=== PATIENT | male | born 1950 | race Caucasian/White ===

== ENCOUNTER 2024-12-05 19:11 | Emergency (ER) | payer MEDICARE, BC, SELFPAY ==
[2024-12-05 19:16] VITALS: BP 145/80; PULSE 71; RESP 18; TEMP 36.8; O2SAT 99; BMI 25.8
--- NOTE | 2024-12-05 19:24 | CRLHL7_ITS ---
For Patients: As a result of the Century Cures Act, medical imaging exams and procedure reports are released immediately into your electronic medical record. You may view this report before your referring provider. If you have questions, please contact your health care provider. INDICATION: Leg pain and swelling. TECHNIQUE: Ultrasound venous duplex lower left extremity. Compression venous exam was performed using marcos-scale, color Doppler, and spectral Doppler analysis. COMPARISON: None. FINDINGS: Deep veins: Sonographic imaging demonstrates the left common femoral, deep femoral, superficial femoral, popliteal, posterior tibial and the contralateral right common femoral veins to be fully compressible with normal color Doppler blood flow. Superficial veins: Greater saphenous vein is fully compressible. No popliteal cyst. IMPRESSION: Normal left lower extremity venous ultrasound, no sign of deep venous thrombosis. Dictated by Jay Vieira MD @ 12/05/2024 8:51:18 PM (Electronically Signed)
--- NOTE | 2024-12-05 20:10 | ED.GENADULT ---
HPI - General Adult General Chief complaint: Extremity Pain/Injury, Lower Stated complaint: Needs Ultrasound on left leg according to patient Time Seen by Provider: 12/05/24 20:08 History of Present Illness HPI narrative: Pt c/o ache in front left willis for three nights. Pt states this pain only occurs at night and now radiates to back of left calf. Pt denies any swelling, redness, or itchiness to area. Pt states he just started Aranesp injections three weeks ago due to low hemoglobin and primary care doctor has concern for DVT since that is a side effect of this drug. Pt does endorse taking a daily baby aspirin. 74-year-old man presenting to the department with concern of potential DVT. He has been experiencing cramping or aching pain particularly in the anterior lower leg on the left over the last few nights. Kind of radiates around his lower leg. No injury known. Does have a history of restless legs and leg cramps historically. Began Aranesp injections a few weeks ago and due to concern of DVT as a side effect as directed here to confirm that that is not what is going on. Has not really had any swelling. Is not experiencing much pain now. Ultrasound has been requested and has been completed by the time I am interviewing Mr. Catalan. Also received a transfusion today for anemia. No chest pain or shortness of breath Related Data Home Medications ?Medication ?Instructions ?Recorded ?Confirmed aspirin 81 mg capsule 81 mg PO DAILY 12/05/24 12/05/24 darbepoetin eulalia-albumin .ROUTE 12/05/24 tamsulosin 0.4 mg capsule (Flomax) 0.4 mg PO DAILY 12/05/24 12/05/24 Allergies Allergy/AdvReac Type Severity Reaction Status Date / Time Penicillins Allergy Mild Rash Verified 12/05/24 19:23 Review of Systems Status of ROS: Reports: 6 or more systems reviewed and unremarkable except as noted in History and below Exam Narrative: Exam Narrative: Very pleasant. NAD. Breathing easily. Extremities are well perfused without edema. Heart in regular rate and rhythm. Examination of the left lower leg does not show any remarkable swelling. Mild discomfort if anything to palpation over the anterior mid willis musculature on the left. No inflammatory changes or swelling about the knee. Const: Vital Signs, click to edit/add: Vital Signs - 24 hr 12/05/24 19:16 Temperature 98.2 F Pulse Rate [Pulse Oximeter] 71 Respiratory Rate 18 Blood Pressure [Ri ght Upper Arm] 145/80 H Pulse Oximetry 99 Oxygen Delivery Me thod Room Air Documenting provider has reviewed patient's vital signs: yes Course Vital Signs Vital signs: Initial Vital Signs Temperature 98.2 F 12/05/24 19:16 Temperature Source Temporal Artery Scan 12/05/24 19:16 Pulse Rate 71 12/05/24 19:16 Respiratory Rate 18 12/05/24 19:16 Blood Pressure 145/80 H 12/05/24 19:16 Blood Pressure Mean 101 12/05/24 19:16 Blood Pressure Position Sitting 12/05/24 19:16 Pulse Oximetry 99 12/05/24 19:16 Oxygen Delivery Method Room Air 12/05/24 19:16 Vital Signs Temperature 98.2 F 12/05/24 19:16 Pulse Rate 71 12/05/24 19:16 Respiratory Rate 18 12/05/24 19:16 Blood Pressure 145/80 H 12/05/24 19:16 Pulse Oximetry 99 12/05/24 19:16 Oxygen Delivery Method Room Air 12/05/24 19:16 Temperature 98.2 F 12/05/24 19:16 Pulse Rate 71 12/05/24 19:16 Respiratory Rate 18 12/05/24 19:16 Blood Pressure 145/80 H 12/05/24 19:16 Pulse Oximetry 99 12/05/24 19:16 Oxygen Delivery Method Room Air 12/05/24 19:16 Medical Decision Making MDM Narrative Medical decision making narrative: With chronic leg cramps certainly this could be related to the anemia/ferritin. This has been addressed. I suspect this is an extension of what he already experience is may be complicated by history of anemia. We did discuss further evaluation with chemistries and perhaps looking for some perhaps bony lesion but with negative ultrasound preference was to see whether transfusion helps this aching has been experiencing and then following up outpatient. Has no reason really to suspect willis splints otherwise. Ultrasound today was negative for DVT per my conversation with classics teacher. Radiology over-read below INDICATION: Leg pain and swelling. TECHNIQUE: Ultrasound venous duplex lower left extremity. Compression venous exam was performed using marcos-scale, color Doppler, and spectral Doppler analysis. COMPARISON: None. FINDINGS: Deep veins: Sonographic imaging demonstrates the left common femoral, deep femoral, superficial femoral, popliteal, posterior tibial and the contralateral right common femoral veins to be fully compressible with normal color Doppler blood flow. Superficial veins: Greater saphenous vein is fully compressible. No popliteal cyst. IMPRESSION: Normal left lower extremity venous ultrasound, no sign of deep venous thrombosis. Dictated by Jay Vieira MD @ 12/05/2024 8:51:18 PM Provided with Dario wraps See patient discharge plan for further discussion I am with you that it is probably an extension of your usual difficulties with muscle cramps. It might reflect the anemia/low iron you described. I am hopeful that the transfusion you received today will help. Does not appear that there is any clot thankfully. If this continues I would check electrolytes including magnesium. Continue to stay well-hydrated. Wrapping your legs with the provided Dario wraps might be helpful; a bit of a physical distraction or may be frankly helpful with this feeling/cramping. Discharge Plan Discharge Clinical Impression: Pain in left willis Patient Disposition: Home w/ Parent or Adult Condition: Stable Additional Instructions: I am with you that it is probably an extension of your usual difficulties with muscle cramps. It might reflect the anemia/low iron you described. I am hopeful that the transfusion you received today will help. Does not appear that there is any clot thankfully. If this continues I would check electrolytes including magnesium. Continue to stay well-hydrated. Wrapping your legs with the provided Dario wraps might be helpful; a bit of a physical distraction or may be frankly helpful with this feeling/cramping. Prescriptions: No Action darbepoetin eulalia-albumin [Aranesp (in albumin)] .ROUTE tamsulosin [Flomax] 0.4 mg capsule 0.4 mg PO DAILY aspirin 81 mg capsule 81 mg PO DAILY Follow Up/Referrals: Ang Mcgarry MD [Primary Care Provider] - Stand Alone Forms: [place] [facility] Info Instructions
--- OUTSIDE RECORDS SUMMARY | 2024-12-05 20:52 | XMS_ITS | Data Portability ---
Author Organization [place] [facility] Address [address] [place] [address] Care Team Providers Care Machine Operator Name Role Phone ZACHARY SAURAV Primary Care Provider Assessment Encounter Date Assessment Date Assessment LastModified by Organization Details LastModified Time 09/24/2024 09/24/2024 Time spent reviewing the patient s medical record, diagnostic studies, performing a focused history and physical exam, educating the patient regarding the natural history of disease as it pertains to the patient, discussing treatment options and alternatives, medical decision making, and chartin-39 minutes. Not available 09/24/2024 14:13:48 Plan of Treatment Reminders Order Date Submit Date Provider Last Modified By Organization Details Last Modified Time Details Appointments None record ed. Lab None record ed. Referral None record ed. Procedures None record ed. Surgeries None record ed. Imaging None record ed. Medication Orders None record ed. Patient TargetsNo targets recorded. Patient Instructions Encounter Date Encounter Id Patient Instructions Last Modified By Organization Details Last Modified Time 09/24/2024 [id number] PROCEDURE RECOMMENDATIONS 1. Varithena ablation of the residual right small saphenous vein (62164) 2. Ultrasound guided foam sclerotherapy of the residual incompetent tributaries and varicosities greater than 3.0mm of the right leg (76219, 01200) - 1 sessions Not available 09/24/2024 14:14:14 Reason for Referral None Reported. Problems Name Problem SNOMED Code Status Onset Date Resolution Date Notes Provider Name and Address Organization Details Recorded Time Pain co-occurr ent and due to varicose veins of right leg [id number] 250253 Active 2021 Varicose veins of right lower extremiti es with pain; Status Update Date: 11/10/2021 3:13:12 PM Record Status: True Mckenzie ge Code ID: I83.811 T erminal ID: [id number] ICD Code Version: 10 Not Available [facility] 22:42:19 Problem Notes None recorded. Procedures Surgical History Date Name Laterality Status Provider Name and Address Organization Details Recorded Time 09/15/19 PVC - Varithena: Multiple Veins w/ UGFS completed Nallely Corey [facility] 09/15/2024 12:38:04 09/02/19 PVC - EVRFA: Single Vein completed Tavia Ahmadi MD [address], [place], [address], [facility] 09/02/2024 14:05:58 Colonoscopy completed Klaudia Barrera PA-C [address], [place], [address], [facility] 08/05/2024 15:08:40 Vein procedure completed Klaudia Barrera PA-C [address], [place], [address], [facility] 08/05/2024 15:09:31 Vasectomy completed Klaudia Barrera PA-C [address], [place], [address], [facility] 08/05/2024 15:08:40 Appendectomy completed Klaudia Barrera PA-C [address], [place], [address], [facility] 08/05/2024 15:08:40 Imaging Results None recorded. Procedure Notes None recorded. Medical Equipment None Reported. Allergies Allergen ID Allergen Name Allergen Category Reaction Reaction Severity Criticality Documentation Date Start Date Code Code System Note Provider Name and Address Organization Details Recorded Time 2065 Penicilli n Not available rash Not available Not available 08/20/20232021 84946 RxNorm React ion: rash; Comme nt: NoKno wDrug Aller gy: False Markel rgy Name ID: 0 All ergy Remov e Reaso nID: 0 All ergy Remov e By ID: 0 Rec ord Statu s: 1 Ter azalea ID: [id number] Da teCRU D: 2021 8:09: 00 PM Al elizabeth Statu s: 1 Carmen ction Time: 06:00 PM En tered By Dulce Maria nt: False ; Not Available [facility] 22:35:18 Medications Name Sig Start Date Stop Date Status Note LastModified by Organization Details LastModified Time cyclospori ne modified 25 mg capsule TAKE 1 CAPSULE BY MOUTH 2 TIMES A DAY. active Not Available Not Available No t Available tamsulosin 0.4 mg capsule TAKE 1 CAPSULE (0.4 MG) BY MOUTH EVERY DAY WITH FOOD active Not Available Not Available No t Available lisinopril 10 mg tablet active Not Available Not Available Not Available cyclospori ne modified 50 mg capsule TAKE 2 CAPSULES BY MOUTH 2 TIMES A DAY. active Not Available Not Available No t Available aspirin Take 1 Capsules oral active Method: Take Drug Strength: 81 mg capsule D rugClass: Salicylat e Analgesic s, Platelet Aggregati on Inhibitor s - Salicylat es PRN: False Dur ation: 0 Duratio nType: Unknown F illedBy: Karla Sorteberg Transmit : False IsD iscontinu e: False Pat ientDisco ntinued: False IsC urrentMed ications: True IsSi gned: False Max DailyDose : 0 Not Available Not Available Not Available Vitals None Recorded Social History Question Answer Notes LastModified by Organizat ion Details LastModified Time Tobacco Smoking Status Former Smoker Klaudia Barrera PA-C [address] [place], [address], [place] [facility] 08/05/2024 15:08:37 What Is Your Level Of Alcohol Consumption? Occasional Information not available 08/05/2024 How Many Times Per Week Do You Consume Alcohol? Less Than 1 Time Per Week Information not available 08/05/2024 Are You Currently Employed? No Information not available 08/05/2024 What Is Your Occupation? Retired Information not available 08/05/2024 How Many Times Per Week Do You Exercise? 5-7 Times Per Week Information not available 08/05/2024 How Much Tobacco Do You Smoke? 0.25 PPD Information not available 08/05/2024 Sex: Unknown Functional Status Question Answer Note LastModified by Organization D etails LastModified Time What is your exercise level? Moderate Information not available 08/05/2024 Mental Status None recorded. Family History Relationship Description Onset Age of this Age Resolved Age Notes LastModified by Organization Details LastModified Time Paternal Grandmother Varicose veins of lower extremity Not available 2023 15:08:28 Father Ulcer of lower extremity Not available 2023 15:08:28 Notes:Mother: Varicose veins Maternal Grandmother: Varicose veins and Leg ulcers, ItemName: {AR}Family History , Mother: Varicose veins Maternal Grandmother: Varicose veins and Leg ulcers, ItemName: {AR}Family History , Mother: Varicose veins Maternal Grandmother: Varicose veins and Leg ulcers, ItemName: {AR}Family History , Mother: Varicose veins Maternal Grandmother: Varicose veins and Leg ulcers, ItemName: {AR}Family History , Mother: Varicose veins Maternal Grandmother: Varicose veins and Leg ulcers, ItemName: {AR}Family History , Mother: Varicose veins Maternal Grandmother: Varicose veins and Leg ulcers, ItemName: {AR}Family History , Mother: Varicose veins Maternal Grandmother: Varicose veins and Leg ulcers, ItemName: {AR}Family History , Maternal Grandmother: Leg ulcers, ItemName: {AR}Family History Medical History Condition Response Varicose Veins Y Past Encounters Encounter ID Performer Location Encounter Start Date Encounter Closed Date Diagnosis/Indication Diagnosis SNOMED-CT Code Diagnosis ICD10 Code Diagnosis Note [id number] MD Vicenta Meek [address] [place] [address] 08/05/2024 14:50:33 08/13/2024 04:06:04 Pain co-occurrent and due to varicose veins of right leg [id number] I83.811 DUPLEX ULTRASOUND FINDINGS: Spectral doppler analysis shows abnormal reflux (>500msec) in the left distal GSV, right GSV, right SSV remnant, and multiple bilateral tributary veins. Portions of the right GSV and SSV are absent c/w prior treatment. Pulsatile flow in bilateral GSV present. The deep veins are patent with normal compressib ility and augmentati on. Deep reflux seen in the right mid FV. There is no significan t tortuosity or aneurysm of the refluxing saphenous veins which would impede catheter advancemen t. [id number] MD Vicenta Meek [address] [place] [address] 08/05/2024 14:50:35 08/12/2024 10:39:29 Pain co-occurrent and due to varicose veins of right leg [id number] I83.811 DUPLEX ULTRASOUND FINDINGS: Spectral doppler analysis shows abnormal reflux (>500msec) in the left distal GSV, right GSV, right SSV remnant, and multiple bilateral tributary veins. Portions of the right GSV and SSV are absent c/w prior treatment. Pulsatile flow in bilateral GSV present. The deep veins are patent with normal compressib ility and augmentati on. Deep reflux seen in the right mid FV. There is no significan t tortuosity or aneurysm of the refluxing saphenous veins which would impede catheter advancemen t. ASSESSMENT :1)Left lower extremity with mild venous insufficie ncy and mild symptoms2) Right lower extremity superficia l chronic venous insufficie ncy of the GSV and tributary veins with pain and inflammati on affecting activities of daily living. CEAP 3, VCSS 123) Normal deep venous system without DVT4) Pulsatile flow in bilateral GSV5) The patient has progressio n of symptoms despite conservati ve measures including: use of GCS class II or higher for more than 3 months, avoiding long periods of sitting/st anding, regular daily exercise including moderate walking, weight control, OTC analgesics and leg elevation. PLAN:1) Venous insufficie ncy - Proceed with the treatment plan detailed below for the RLE. Continue to monitor LLE and if symptoms worsen re-evaluat e with ultrasound .2) Pulsatile flow - etiology for this could include hypertensi on, CHF. Recommend patient continue close follow up with PCP for heart health. Records sent to PCP. [id number] MD Vicenta Meek e [address] [place] [address] 09/02/2024 13:10:57 09/03/2024 23:12:09 Pain co-occurrent and due to varicose veins of right leg [id number] I83.811 [id number] Tavia Ahmadi MD [facility] [address],[facility] [address] [place] [address] 09/15/2024 12:14:22 09/17/2024 12:22:27 Pain co-occurrent and due to varicose veins of right leg [id number] I83.811 [id number] Tavia Ahmadi MD [facility] [address],[facility] [address] [place], [place] [address] 09/24/2024 12:34:59 09/26/2024 04:12:03 Pain co-occurrent and due to varicose veins of right leg [id number] I83.811 DUPLEX ULTRASOUND FINDINGS: Spectral doppler analysis shows abnormal reflux (>500msec) in the left distal GSV, right SSV remnant, and multiple right tributary veins. Portions of the right GSV and SSV are absent c/w prior treatment. Right GSV also demonstrat es ablation c/w recent treatment. Pulsatile flow in left GSV present. The deep veins are patent with normal compressib ility and augmentati on. Adequate capacity of the deep system. [id number] Tavia Ahmadi MD [facility] [address],[facility] [address] [place] [address] 09/24/2024 12:35:35 09/25/2024 13:26:31 Pain co-occurrent and due to varicose veins of right leg [id number] I83.811 DUPLEX ULTRASOUND FINDINGS: Spectral doppler analysis shows abnormal reflux (>500msec) in the left distal GSV, right SSV remnant, and multiple right tributary veins. Portions of the right GSV and SSV are absent c/w prior treatment. Right GSV also demonstrat es ablation c/w recent treatment. Pulsatile flow in left GSV present. The deep veins are patent with normal compressib ility and augmentati on. Adequate capacity of the deep system. ASSESSMENT :1)Left lower extremity with mild venous insufficie ncy and mild symptoms2) Right lower extremity superficia l chronic venous insufficie ncy of the SSV remnant and tributary veins with pain and inflammati on affecting activities of daily living. CEAP 3, VCSS 123) Normal deep venous system without DVT4) Pulsatile flow in bilateral superficia l system5) The patient has progressio n of symptoms despite conservati ve measures including: use of GCS class II or higher for more than 3 months, avoiding long periods of sitting/st anding, regular daily exercise including moderate walking, weight control, OTC analgesics and leg elevation. PLAN:1) Venous insufficie ncy - Proceed with the treatment plan detailed below for the RLE. Continue to monitor LLE and if symptoms worsen re-evaluat e with ultrasound .2) Pulsatile flow - etiology for this could include hypertensi on, CHF. Recommend patient continue close follow up with PCP for heart health. Records sent to PCP with initial demonstrat ion of this in July 2024. Health Concerns Section Related Observation LastModified by Organization Detai ls LastModified Time None Recorded Concern Status LastModified by Organization Details LastModified Time None Recorded Advance Directives Directive None Recorded Payers Encounter Date Sequence Insurance Name Policy Number Policy Brito Covered Member ID Brito Member ID Guarantor Name 08/05/2024 2 [facility]: [employer] 33 Gurpreet Gregorio Zappa [id number] Gurpreet L Zappa 08/05/2024 1 [place] [employer] Gurpreet L Zappa [id number] Gurpreet L Zappa 09/02/2024 2 [facility] [employer] 33 Gurpreet L Zappa [id number] Gurpreet L Zappa 09/02/2024 1 [place] [employer] Gurpreet L Zappa [id number] Gurpreet L Zappa 09/15/2024 2 [facility] [employer] [id number] Gurpreet L Zappa [id number] Gurpreet L Zappa 09/15/2024 1 [place] [employer] Gurpreet L Zappa [id number] Gurpreet L Zappa 09/24/2024 2 [facility] [employer] [id number] Gurpreet Catalan [id number] Gurpreet Catalan 09/24/2024 1 [place] [facility] Gurpreet Catalan [id number] Gurpreet Catalan 09/24/2024 2 [facility] [employer] 33F Gurpreet Catalan [id number] Gurpreet Catalan 09/24/2024 1 [place] [employer] [facility] Gurpreet Catalan [id number] 7 Gurpreet Catalan Notes Date Note Type Note Provider Name and Address Organization Details Recorded Time 08/05/2024 text/html PVC (Q4U) RecheckReported bypatient.Please select the location of your concernRight Leg: Thigh I have had symptoms:More than 5 year Have you ever experienced any of the following symptoms?Cramping;Res tlessness;Bulging veins When do the symptoms occur?Sitting What activities of daily living do the symptoms affect?Sleep What relieves your symptoms?None Do you wear compression stockings to relieve your symptoms?Yes How long have you worn compression stockings?More than 6 months Have you ever been prescribed medical grade compression stockings?Yes Tavia Ahmadi MD [address], [place], [address], [facility] 08/05/2024 17:17:58 08/05/2024 text/html The patient is a 73 yo male who presents with complaints of right lower extremity varicose veins and increasing symptoms for the past year. Patient has had prior right leg vein treatment with RFA and sclerotherapy in 2021, he notes that symptoms were resolved for a while but now have returned, especially the cramping in the right medial thigh. He also notes one instance of cramping in the left medial thigh. Symptoms include: pain, aching, cramping, tired legs, heavy legs, fatigue, itching, burning, recurring swelling, spider veins, surface veins, and skin discoloration. There is no history of DVT, SVT, ulceration, cellulitis or phleborrhagia. Symptom location: Right leg/thigh mostly, one episode of left leg cramping. Symptom severity: 6/10; moderately severe Symptoms occur with: prolonged sitting and standing, sleeping, during activity/exercise, after activity/exercise, and are worse later in the day. ADLs affected by symptoms:-Sleep: interfere with patient s ability to fall asleep and cause patient to awaken from sleep frequently.-Exercise/ activity: limit ability to exercise, including walking.-Work: Needs to take frequent breaks to walk and/or elevate legs.-Chores: Avoids chores or needs to take breaks to walk and/or elevate legs.-Leisure activities: Avoids activities or needs to take breaks to walk and/or elevate. Conservative measures implemented without relief of symptoms:-avoidance of prolonged periods of sitting or standing,-regular exercise including moderate daily walking,-leg elevation,-weight control,-GCS 20-30 mmHg >3 months, Rx given in 2021, records on file,-OTC analgesics. Of note, patient has a history of hypertension and is following with PCP, he states that BP in clinic is usually high but at home less elevated. He denies any history of heart failure. Denies new swelling in the legs. Tavia Ahmadi MD [address] [place], [address], [facility] 08/05/2024 17:19:08 09/24/2024 text/html PVC (Q4U) RecheckReported bypatient.Please select the location of your concernLeft Leg: Thigh I have had symptoms:Less than 3 months Have you ever experienced any of the following symptoms?Cramping;Tir ed legs/Fatigue When do the symptoms occur?Sitting What activities of daily living do the symptoms affect?Sleep What relieves your symptoms?Avoidance of long periods of sitting/standing; Regular Excercise Do you wear compression stockings to relieve your symptoms?Yes How long have you worn compression stockings?More than 3 months Have you ever been prescribed medical grade compression stockings?Yes Tavia Ahmadi MD [address] [place], [address], [facility] 09/24/2024 15:58:02 09/24/2024 text/html The patient is a 73 yo male who presents with complaints of right lower extremity varicose veins and increasing symptoms for the past year. Patient has had prior right leg vein treatment with RFA and sclerotherapy in 2021 and just recently had more vein treatment on the right lower extremity with RFA and sclerotherapy. Patient continues to note that he only had one episode of cramping in the left leg otherwise is asymptomatic. Patient notes symptoms, especially cramping, has improved since recent vein treatment, but continues to note the following. Symptoms include: pain, aching, cramping, tired legs, heavy legs, fatigue, itching, burning, recurring swelling, spider veins, surface veins, and skin discoloration. There is no history of DVT, SVT, ulceration, cellulitis or phleborrhagia. Symptom location: Right leg/thigh mostly, one episode of left leg cramping. Symptom severity: 02/03; moderately severe Symptoms occur with: prolonged sitting and standing, sleeping, during activity/exercise, after activity/exercise, and are worse later in the day. ADLs affected by symptoms:-Sleep: interfere with patient s ability to fall asleep and cause patient to awaken from sleep frequently.-Exercise/ activity: limit ability to exercise, including walking.-Work: Needs to take frequent breaks to walk and/or elevate legs.-Chores: Avoids chores or needs to take breaks to walk and/or elevate legs.-Leisure activities: Avoids activities or needs to take breaks to walk and/or elevate. Conservative measures implemented without relief of symptoms:-avoidance of prolonged periods of sitting or standing,-regular exercise including moderate daily walking,-leg elevation,-weight control,-GCS 20-30 mmHg >3 months, Rx given in 2021, records on file,-OTC analgesics. Of note, patient has a history of hypertension and is following with PCP, he states that BP in clinic is usually high but at home less elevated. He denies any history of heart failure. Denies new swelling in the legs. Tavia Ahmadi MD [address], [place], [address], [place] [facility] 09/24/2024 15:59:00
--- OUTSIDE RECORDS SUMMARY | 2024-12-05 20:52 | XMS_ITS | Clinical Summary ---
Author Organization [facility] Address [address] [place] [address] Care Team Providers Care Loss Prevention Lead Name Role Phone Elsewhere, Pcp Primary Care Provider Unavailabl e Source Comments Patient records contain information from all sites at [facility]. For routine questions regarding patient records, call [phone] during business hours, M-F 8:00 AM - 5:00 PM Central Time. Record requests for emergency care only can be directed to [phone] at any time.[facility] Allergies Active Allergy Reactions Criticality Noted Date Comments Penicillins Diarrhea,Hives (Reselect Reaction) 01/22/2014 hives Medications * This document contains information received from the source organization and may not represent a complete record from that organization. aspirin [address] tablet Take 81 mg by mouth daily. Active cycloSPORINE modified (Gengraf,NeoraL ) 50 mg capsule TAKE 2 CAPSULES BY MOUTH 2 TIMES A DAY. 360 capsule 3 08/18/2024 Active cycloSPORINE modified (Gengraf,NeoraL ) 25 mg capsule TAKE 1 CAPSULE BY MOUTH 2 TIMES A DAY. 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 Myelofibrosis (HCC) (Primary Dx) 12/05/2024 Clinical Communication Division of Hematology in [address] [phone] Slava Lees M.D. Nurse Assessment 12/05/2024 Orders Only Division of Hematology in [place], [place] [address] [place] [phone] Slava Lees M.D. 12/04/2024 11:15 AM CDT - 12/04/2024 11:59 PM CDT Hospital Encounter Department of Laboratory Medicine in [address] [phone] Slava Lees M.D. 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); Aplasia Red Cell (HCC) Discharge Disposition: Home or Self Care 12/04/2024 Clinical Communication Department of Infusion Therapy in [address] [phone] Nan Scott, R.N. Appt Request 12/04/2024 Clinical Communication Department of Infusion Therapy in [address] [phone] Nan Scott RMillaN. 12/04/2024 Clinical Communication Division of Hematology in [place], [place] [address] [place] [phone] Slava Lees M.D. 12/01/2024 Clinical Communication Division of Hematology in [place], [place] [address] [place] [phone] Slava Lees M.D. 11/27/2024 12:30 PM CDT Infusion Department of Infusion Therapy in [address] [phone] Slava Lees M.D. Aplasia Red Cell (HCC) (Primary Dx) 11/27/2024 11:30 AM CDT - 11/27/2024 11:59 PM CDT Hospital Encounter Department of Laboratory Medicine in [address] [phone] Slava Lees M.D. 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); Aplasia Red Cell (HCC) Discharge Disposition: Home or Self Care 11/24/2024 Orders Only Division of Hematology in [address] [phone] Slava Lees M.D. 11/20/2024 11:06 AM CDT - 11/20/2024 11:59 PM CDT Hospital Encounter Department of Laboratory Medicine in [address] [phone] Slava Lees M.D. 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); Aplasia Red Cell (HCC) Discharge Disposition: Home or Self Care 11/13/2024 5:15 PM CDT Infusion Department of Infusion Therapy in [place], [place] [address] [place] [phone] Slava Lees M.D. Aplasia Red Cell (HCC) (Primary Dx) Discharge Disposition: Home or Self Care 11/13/2024 1:00 PM CDT Office Visit Division of Hematology in [place], [place] [address] [place] [phone] Slava Lees M.D. Aplasia Red Cell (HCC) (Primary Dx) 11/13/2024 11:05 AM CDT - 11/13/2024 11:59 PM CDT Hospital Encounter Department of Laboratory Medicine in [address] [phone] Slava Lees M.D. 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); Aplasia Red Cell (HCC) Discharge Disposition: Home or Self Care 11/06/2024 6:45 PM CDT Infusion Department of Infusion Therapy in [address] [phone] Slava Lees M.D. Myelofibrosis (HCC) (Primary Dx); Aplasia Red Cell (HCC); Anemia Of Chronic Renal Failure Discharge Disposition: Home or Self Care 11/06/2024 4:30 PM CDT - 11/06/2024 11:59 PM CDT Hospital Encounter Department of Laboratory Medicine and Pathology, [facility] in [address] [phone] Slava Lees M.D. Myelofibrosis (HCC) Discharge Disposition: Home or Self Care 11/06/2024 11:33 AM CDT - 11/06/2024 4:29 PM CDT Hospital Encounter Department of Laboratory Medicine in [address] [phone] Slava Lees M.D. 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); Aplasia Red Cell (HCC) Discharge Disposition: Home or Self Care 11/06/2024 Results Follow-Up Division of Hematology in [address] [phone] Lexie Sampson R.N. CBC with Differential, Blood, Morphology Evaluation 11/06/2024 Orders Only Division of Hematology in [address] [phone] Slava Lees M.D. Myelofibrosis (HCC) (Primary Dx) 11/03/2024 Clinical Communication Division of Hematology in [address] [phone] Frank Bowen M.B.B.S. 10/31/2024 3:08 PM THERAPIST OCCUPATIONAL - 10/31/2024 11:59 PM THERAPIST OCCUPATIONAL Hospital Encounter Department of Laboratory Medicine and Pathology, [place], [place] [address] [place] [phone] Frank Bowen M.B.B.S. 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); Aplasia Red Cell (HCC); Anemia Of Chronic Renal Failure; Monoclonal B Cell Lymphocytosis Discharge Disposition: Home or Self Care 10/31/2024 2:00 PM THERAPIST OCCUPATIONAL Comprehensive Visit Division of Hematology in [place], [place] [address] [place] [phone] Frank Bowen M.B.B.S. 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) (Primary Dx); Aplasia Red Cell (HCC); Anemia Of Chronic Renal Failure; Monoclonal B Cell Lymphocytosis 10/31/2024 8:26 AM THERAPIST OCCUPATIONAL - 10/31/2024 3:07 PM THERAPIST OCCUPATIONAL Hospital Encounter Department of Radiology, [place], [place] [address] [place] [phone] Slava Lees M.D. 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); Aplasia Red Cell (HCC) Discharge Disposition: Home or Self Care 10/31/2024 8:00 AM THERAPIST OCCUPATIONAL - 10/31/2024 8:25 AM THERAPIST OCCUPATIONAL Hospital Encounter Department of Laboratory Medicine and Pathology, [place], [place] [address] [place] [phone] Slava Lees M.D. 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); Aplasia Red Cell (HCC) Discharge Disposition: Home or Self Care 10/23/2024 11:25 AM THERAPIST OCCUPATIONAL - 10/23/2024 11:59 PM THERAPIST OCCUPATIONAL Hospital Encounter Department of Laboratory Medicine in [address] [phone] Slava Lees M.D. 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); Aplasia Red Cell (HCC) Discharge Disposition: Home or Self Care 10/17/2024 Clinical Communication Division of Hematology in [place], [place] [address] [place] [phone] Slava Lees M.D. Upcoming lab appts 10/16/2024 1:00 PM THERAPIST OCCUPATIONAL Office Visit Division of Hematology in [address] [phone] Slava Lees M.D. 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) (Primary Dx); Aplasia Red Cell (HCC) 10/16/2024 9:00 AM THERAPIST OCCUPATIONAL - 10/16/2024 11:59 PM THERAPIST OCCUPATIONAL Hospital Encounter Department of Laboratory Medicine and Pathology, [facility] in [address] [phone] Slava Lees M.D. 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) Discharge Disposition: Home or Self Care 10/03/2024 7:00 AM THERAPIST OCCUPATIONAL Infusion Department of Infusion Therapy in [address] [phone] Lilia Mccormick M.D. Myelofibrosis (HCC) (Primary Dx) 10/02/2024 11:29 AM THERAPIST OCCUPATIONAL - 10/02/2024 11:59 PM THERAPIST OCCUPATIONAL Hospital Encounter Department of Laboratory Medicine in [address] [phone] Lilia Mccormick M.D. Myelofibrosis (HCC) Discharge Disposition: Home or Self Care 10/02/2024 Clinical Communication Division of Hematology in [address] [phone] Slava Lees M.D. 10/01/2024 Clinical Communication Division of Hematology in [address] [phone] Slava Lees M.D. Follow-up Orders (Blood transfusion) 09/30/2024 11:27 AM THERAPIST OCCUPATIONAL - 09/30/2024 11:59 PM THERAPIST OCCUPATIONAL Hospital Encounter Department of Laboratory Medicine in [address] [phone] Slava Lees M.D. 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) Discharge Disposition: Home or Self Care 09/30/2024 Clinical Communication Division of Hematology in [place], [place] [address] [place] [phone] Slava Lees M.D. Nurse Assessment 09/16/2024 12:30 PM THERAPIST OCCUPATIONAL Procedure visit Department of Infusion Therapy in [place], [place] [address] [place] [phone] Slava Lees M.D. Haack, Joseph J, R.N. 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) 09/16/2024 10:10 AM THERAPIST OCCUPATIONAL - 09/16/2024 11:59 PM THERAPIST OCCUPATIONAL Hospital Encounter Department of Laboratory Medicine and Pathology, [facility] in [place], [place] [address] [place] [phone] Slava Lees M.D. 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) Discharge Disposition: Home or Self Care 09/16/2024 Orders Only Division of Hematology in [place], [place] [address] [place] [phone] Slava Lees M.D. 09/12/2024 Clinical Communication Division of Hematology in [place], [place] [address] [place] [phone] Slava Lees M.D. Order Request from Last 3 Months Immunizations Immunization Administration Dates Next Due RZV (SHINGRIX) 09/26/2023,06/14/2023 SARS-COV-2 (COVID-19) - MODERNA(Discontinued) Tdap 01/02/2019 Family History Medical History Relation Name Comments Other cancer Father Gurpreet Catalan stomach Coronary artery disease Mother Mecca valv e Arthritis Paternal Grandmother Curiel old age Diabetes Paternal Grandmother Curiel old age Relation Name Status Comments Father Gurpreet Catalan Mother Mecca Paternal Grandmother Veena Social History Tobacco Use Types Packs/Day Years Used Date Smoking Tobacco: Former Cigarettes 1 4.4 0 11/25/1969 - 04/02/1974 Passive Smoke Exposure: Past Smokeless Tobacco: Never Tobacco Cessation:Counseling Given: Not Answered Comments: service time only Passive Exposure Comments:Dad When I was growing up & in the Service Alcohol Use Standard Drinks/Week Comments Yes 5 (1 standard drink = 0.6 oz pur e alcohol) [facility] Utilities Answer Date Recorded In the past 12 months has e electric, gas, oil, or water company threatened to shut off services in your home? No 04/10/2024 Humiliation, Afraid, Rape, and Kick questionnair e Answer Date Recorded Within the last year, have y ou been afraid of your partner or ex-partner? No 03/26/2023 Within the last year, have y ou been humiliated or emotionally abused in other ways by your partner or ex-partner? No Within the last year, have y ou been kicked, hit, slapped, or otherwise physically hurt by your partner or ex-partner? No 03/26/2023 Within the last year, have y ou been raped or forced to have any kind of sexual activity by your partner or ex-partner? No 03/26/2023 Overall Financial Resource Strain (CARDIA) Answe r Date Recorded How hard is it for you to pa y for the very basics like food, housing, medical care, and heating? Not hard at all 03/26/2023 Exercise Vital Sign Answer Date Recorde d On average, how many days pe r week do you engage in moderate to strenuous exercise (like a brisk walk)? 7 days 04/10/2024 On average, how many minutes do you engage in exercise at this level? 40 min 04/10/2024 Hunger Vital Sign Answer Date Recorded Within the past 12 months, y ou worried that your food would run out before you got the money to buy more. Never true 04/10/20 24 Within the past 12 months, t he food you bought just didn't last and you didn't have money to get more. Never true 04/10/2024 PRAPARE - Transportation Answer Date Re corded In the past 12 months, has l ack of transportation kept you from medical appointments or from getting medications? No 03/27 In the past 12 months, has l ack of transportation kept you from meetings, work, or from getting things needed for daily living? No 04/10/2024 Nutrition Answer Date Recorded On average, how many serving s of fruits and vegetables do you eat per day (serving size is equal to 1 cup or approximately the size of a tennis ball)? 3-5 04/10/2024 Dental Answer Date Recorded Dental: Regular Dentist Yes 03/26/20 Employment Answer Date Recorded Employment status Retired 04/10/2024 Housing Stability Answer Date Recorded What is your living situation today? I have a [facility] place to live 04/10/2024 Sex and Gender Information Value Date Recorded Sex Assigned at Male 03/26/2023 7:11 AM CDT Legal Sex Male 7:47 PM THERAPIST OCCUPATIONAL Gender Identity Male 08/12/2018 1:39 PM THERAPIST OCCUPATIONAL Sexual Orientation Straight 08/12/2018 1: 39 PM THERAPIST OCCUPATIONAL Last Filed Vital Signs Vital Sign Reading Time Taken Comments Blood Pressure 131/82 12/05/2024 6:00 PM CDT Pulse 85 12/05/2024 6:00 PM CDT Temperature 36.8 C (98.2 F) 12/05/2024 6:04 PM CDT Respiratory Rate 16 12/05/2024 1:30 PM CDT Oxygen Saturation 94% 12/05/2024 6:00 PM CDT Inhaled Oxygen Concentration - - Weight 70 kg (154 lb 5.2 oz) 12/05/2024 6:23 PM CDT Height 166.5 cm (5' 5.55) 11/13/2024 12:44 PM C DT Body Mass Index 25.25 11/13/2024 12:44 PM CDT Plan of Treatment Upcoming Encounters Date Type Department Care Team (Late st Contact Info) Description 12/11/2024 1:20 PM CDT Appointment Department of Laboratory Medicine in [address] [phone] Slava Lees M.D. [address] [place] [phone] 12/11/2024 2:30 PM CDT Infusion Department of Infusion Therapy in [address] [phone] Slava Lees M.D. [address] [place] [phone] 12/18/2024 12:00 PM CDT Appointment Department of Laboratory Medicine in [address] [phone] Slava Lees M.D. [address] [place] [phone] 12/25/2024 11:00 AM CDT Appointment Department of Laboratory Medicine in [address] [phone] Slava Lees M.D. [address] [place] [phone] 12/25/2024 12:00 PM CDT Infusion Department of Infusion Therapy in [address] [phone] Slava Lees M.D. [address] [place] [phone] 01/01/2025 11:10 AM CDT Appointment Department of Laboratory Medicine in [address] [phone] Slava Lees M.D. [address] [place] [phone] 01/08/2025 1:30 PM CDT Appointment Department of Laboratory Medicine in [address] [phone] Slava Lees M.D. [address] [place] [phone] 01/08/2025 2:30 PM CDT Infusion Department of Infusion Therapy in [address] [phone] Slava Lees M.D. [address] [place] [phone] 01/15/2025 11:10 AM CDT Appointment Department of Laboratory Medicine in [address] [phone] Slava Lees M.D. [address] [place] [phone] 01/22/2025 11:00 AM CDT Appointment Department of Laboratory Medicine in [address] [phone] Slava Lees M.D. [address] [place] [phone] 01/22/2025 12:30 PM CDT Infusion Department of Infusion Therapy in [address] [phone] Slava Lees M.D. [address] [place] [phone] 01/29/2025 11:10 AM CDT Appointment Department of Laboratory Medicine in [address] [phone] Slava Lees M.D. [address] [place] [phone] 02/05/2025 1:30 PM CDT Appointment Department of Laboratory Medicine in [address] [phone] Slava Lees M.D. [address] [place] [phone] 02/05/2025 2:30 PM CDT Infusion Department of Infusion Therapy in [address] [phone] Slava Lees M.D. [address] [place] [phone] 02/12/2025 11:10 AM CDT Appointment Department of Laboratory Medicine in [address] [phone] Slava Lees M.D. [address] [place] [phone] 02/26/2025 11:10 AM CDT Appointment Department of Laboratory Medicine in [address] [phone] Slava Lees M.D. [address] [place] [phone] Health Maintenance Due Date Last Done Comments Abdominal Aortic Aneurysm (AAA) Screen 1950 CT Colonography 1950 FIT 1950 Pneumococcal vaccine (50+ years) (1 of 2 - PCV) 1969 RSV vaccine - (32-36 weeks) or 60+ years (1 - Risk 60-74 years 1-dose series) 2010 Colonoscopy 10/04/2020 10/04/2010 (Perf ormed elsewhere) COVID-19 Vaccine ( - 2023- season) 2024 04/20/2021, 01/02/2021, 12/05/2020 Influenza Vaccine (#1) 2024 Depression Screening (Annual PHQ-2) 08/27/2024 Potassium Level 10/16/2025 10/16/2024, 08/2 , 10/12/2023, Additional history exists Sodium Level 10/16/2025 10/16/2024, 08/2 , 10/12/2023, Additional history exists Creatinine Level (Kidney Function Test) 10/31/2025 10/31/2024, 10/16/2024, 04/15/2024, Additional history exists Cologuard 07/31/2027 07/31/2024 Colorectal Cancer Screening 07/31/2027 Fasting Glucose for Diabetes Screening 10/16/2027 10/16/2024, 04/15/2024, 10/12/2023, Additional history exists DTaP,Tdap,and Td Vaccines (2 - Td or Tdap) 01/02/2029 01/02/2019 Zoster Vaccines Completed 09/26/2023, 06/14/2023 Fall Risk Screen (Annual) Completed 11/13/2024 HPV Vaccines Aged Out No longer eligi ble based on patient's age to complete this topic IPV Vaccines Aged Out No longer eligi ble based on patient's age to complete this topic Procedures Procedure Name Priority Date/Time Associated Diagnosis Comments TRANSFUSE RED BLOOD CELLS Routine 12/05/2024 11:01 AM CDT Myelofibrosis (HCC) PREPARE RED BLOOD CELLS Routine 12/04/2024 1:57 PM CDT Myelofibrosis (HCC) TESTING LOCATION Routine 12/04/2024 1:57 PM CDT TYPE AND SCREEN Routine 12/04/2024 1:57 PM CDT 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) Aplasia Red Cell (HCC) CBC WITH DIFFERENTIAL, B Routine 12/04/2024 11:22 AM CDT 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) Aplasia Red Cell (HCC) IRON AND TOT IRON-BINDING CAPACITY, S/P Routine 11/27/2024 11:38 AM CDT Aplasia Red Cell (HCC) FERRITIN, S Routine 11/27/2024 11:38 AM CDT Aplasia Red Cell (HCC) CBC WITH DIFFERENTIAL, B Routine 11/27/2024 11:38 AM CDT 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) Aplasia Red Cell (HCC) IRON AND TOT IRON-BINDING CAPACITY, S/P Routine 11/20/2024 11:18 AM CDT Aplasia Red Cell (HCC) FERRITIN, S Routine 11/20/2024 11:18 AM CDT Aplasia Red Cell (HCC) CBC WITH DIFFERENTIAL, B Routine 11/20/2024 11:18 AM CDT 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) Aplasia Red Cell (HCC) CBC WITH DIFFERENTIAL, B Routine 11/13/2024 11:12 AM CDT 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) Aplasia Red Cell (HCC) TRANSFUSE RED BLOOD CELLS Routine 11/06/2024 6:51 PM CDT Myelofibrosis (HCC) PREPARE RED BLOOD CELLS Routine 11/06/2024 4:53 PM CDT Myelofibrosis (HCC) TYPE AND SCREEN Routine 11/06/2024 4:53 PM CDT Myelofibrosis (HCC) MORPHOLOGY EVALUATION Routine 11/06/2024 11:39 AM CDT CBC WITH DIFFERENTIAL, B Routine 11/06/2024 11:39 AM CDT 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) Aplasia Red Cell (HCC) DIRECT ANTIGLOBULIN TEST (POLYSPECIFIC) Routine 10/31/2024 3:17 PM THERAPIST OCCUPATIONAL VITAMIN B12 ASSAY, S Routine 10/31/2024 3:17 PM THERAPIST OCCUPATIONAL 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) Aplasia Red Cell (HCC) 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 SOLUBLE TRANSFERRIN RECEPTOR (STFR), S Routine 10/31/2024 3:17 PM THERAPIST OCCUPATIONAL 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) Aplasia Red Cell (HCC) 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 LACTATE DEHYDROGENASE (LD), S Routine 10/31/2024 3:17 PM THERAPIST OCCUPATIONAL 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) Aplasia Red Cell (HCC) 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 IRON AND TOT IRON-BINDING CAPACITY, S/P Routine 10/31/2024 3:17 PM THERAPIST OCCUPATIONAL 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) Aplasia Red Cell (HCC) 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 FOLATE, S Routine 10/31/2024 3:17 PM THERAPIST OCCUPATIONAL 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) Aplasia Red Cell (HCC) 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 FERRITIN, S Routine 10/31/2024 3:17 PM THERAPIST OCCUPATIONAL 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) Aplasia Red Cell (HCC) 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 BILIRUBIN, TOT, S/P Routine 10/31/2024 3:17 PM THERAPIST OCCUPATIONAL 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) Aplasia Red Cell (HCC) 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 BILIRUBIN DIRECT, S/P Routine 10/31/2024 3:17 PM THERAPIST OCCUPATIONAL 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) Aplasia Red Cell (HCC) 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 SPSMA RESULT Routine 10/31/2024 3:16 PM THERAPIST OCCUPATIONAL 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) Aplasia Red Cell (HCC) 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 ERYTHROPOIETIN (EPO), S Routine 10/31/2024 3:16 PM THERAPIST OCCUPATIONAL 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) Aplasia Red Cell (HCC) 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 TESTOSTERONE, TOT, BIOAVAILABLE, AND FREE, S Routine 10/31/2024 3:16 PM THERAPIST OCCUPATIONAL 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) Aplasia Red Cell (HCC) 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 HAPTOGLOBIN, S Routine 10/31/2024 3:16 PM THERAPIST OCCUPATIONAL 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) Aplasia Red Cell (HCC) 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 COPPER, S Routine 10/31/2024 3:16 PM THERAPIST OCCUPATIONAL 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) Aplasia Red Cell (HCC) 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 PET CT SKULL TO THIGH RAD - Routine (most inpatients and all outpatients) 10/31/2024 10:14 AM THERAPIST OCCUPATIONAL 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) Aplasia Red Cell (HCC) IMMUNOGLOBULINS (IGG, IGA, AND IGM), S Routine 10/31/2024 8:13 AM THERAPIST OCCUPATIONAL 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) Aplasia Red Cell (HCC) CLL, DIAGNOSTIC FISH Routine 10/31/2024 8:13 AM THERAPIST OCCUPATIONAL 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) Aplasia Red Cell (HCC) RETICULOCYTES, B Routine 10/31/2024 8:13 AM THERAPIST OCCUPATIONAL 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) Aplasia Red Cell (HCC) LEUKEMIA/LYMPHOMA PHENOTYPE, B Routine 10/31/2024 8:13 AM THERAPIST OCCUPATIONAL 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) Aplasia Red Cell (HCC) IGH SOMATIC HYPERMUTATION IN B-CLL Routine 10/31/2024 8:13 AM THERAPIST OCCUPATIONAL 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) Aplasia Red Cell (HCC) CBC WITH DIFFERENTIAL, B Routine 10/31/2024 8:13 AM THERAPIST OCCUPATIONAL 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) Aplasia Red Cell (HCC) LACTATE DEHYDROGENASE (LD), S Routine 10/31/2024 8:12 AM THERAPIST OCCUPATIONAL 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) Aplasia Red Cell (HCC) CREATININE WITH EGFR, S/P Routine 10/31/2024 8:12 AM THERAPIST OCCUPATIONAL 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) Aplasia Red Cell (HCC) CALCIUM, TOT, S/P Routine 10/31/2024 8:12 AM THERAPIST OCCUPATIONAL 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) Aplasia Red Cell (HCC) BILIRUBIN, TOT, S/P Routine 10/31/2024 8:12 AM THERAPIST OCCUPATIONAL 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) Aplasia Red Cell (HCC) [id number] (BETA-2-M), S Routine 10/31/2024 8:12 AM THERAPIST OCCUPATIONAL 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) Aplasia Red Cell (HCC) ASPARTATE AMINOTRANSFERASE (AST), S/P Routine 10/31/2024 8:12 AM THERAPIST OCCUPATIONAL 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) Aplasia Red Cell (HCC) ALKALINE PHOSPHATASE, S/P Routine 10/31/2024 8:12 AM THERAPIST OCCUPATIONAL 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) Aplasia Red Cell (HCC) TP53 PRE-ANALYSIS CELL SORTING, V Routine 10/31/2024 8:09 AM THERAPIST OCCUPATIONAL CBC WITH DIFFERENTIAL, B Routine 10/23/2024 11:30 AM THERAPIST OCCUPATIONAL 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) Aplasia Red Cell (HCC) MAGNESIUM, S Routine 10/16/2024 10:01 AM THERAPIST OCCUPATIONAL 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) COMPREHENSIVE METABOLIC PANEL, S/P Routine 10/16/2024 10:01 AM THERAPIST OCCUPATIONAL 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) CBC WITH DIFFERENTIAL, B Routine 10/16/2024 10:01 AM THERAPIST OCCUPATIONAL 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) TRANSFUSE RED BLOOD CELLS Routine 10/03/2024 7:28 AM THERAPIST OCCUPATIONAL Myelofibrosis (HCC) PREPARE RED BLOOD CELLS Routine 10/02/2024 11:43 AM THERAPIST OCCUPATIONAL Myelofibrosis (HCC) TESTING LOCATION Routine 10/02/2024 11:43 AM THERAPIST OCCUPATIONAL TYPE AND SCREEN Routine 10/02/2024 11:43 AM THERAPIST OCCUPATIONAL Myelofibrosis (HCC) CBC WITH DIFFERENTIAL, B Routine 09/30/2024 11:34 AM THERAPIST OCCUPATIONAL 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) CHROMOSOMES, HEMATOLOGIC, BM Routine 09/16/2024 4:32 PM THERAPIST OCCUPATIONAL MYELOID NEOPLASMS, NGS Routine 4:32 PM THERAPIST OCCUPATIONAL LEUKEMIA/LYMPHOMA, PHENOTYPE, V Routine 09/16/2024 12:30 PM THERAPIST OCCUPATIONAL [place] DX BONE MARROW BX & ASPIR Routine 09/16/2024 12:30 PM THERAPIST OCCUPATIONAL 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 us Slava Lees M.D. BLOOD TRANSFUSION ORDERABLES Final Result * Testing Location (12/04/2024 1:57 PM CDT) Only the most recent of2 resultswithin the time period is included. Testing Location [facility] DEFAULT 12/04/2024 1:59 PM CDT [facility] Blood 12/04/2024 1:57 PM CDT 12/04/2024 1:59 PM CDT Slava Lees M.D. LAB BLOOD BANK TEST ORDERABL ES Edited Result - Final [facility] [address] [place] [address], [facility] [place] [address] [place] [address] * Type and Screen (with Reflex Antibody ID) (12/04/2024 1:57 PM CDT) Only the most recent of3 resultswithin the time period is included. ABO Group O 12/04/2024 7:54 PM CDT [facility] Rh Type POS 12/04/2024 7:54 PM CDT [facility] Antibody Screen NEG 7:54 PM CDT [facility] Type & Screen Expiration 12/07/2024 23:59 12/04/2024 7:54 PM CDT [facility] ELXM Eligible N 12/04/2024 7:54 PM CDT [facility] Blood (Blood, Venous) 12/04/2024 1:57 PM CDT 12/04/2024 1:59 PM CDT us Slava Lees M.D. LAB BLOOD BANK TEST ORDERABL ES Final Result [facility] [address] [place] [address], [place] [facility] [place] [address] [place] [address] * (ABNORMAL) CBC with Differential, Blood (12/04/2024 11:22 AM CDT) Only the most recent of10 resultswithin the time period is included. Hemoglobin 6.5(L) 13.2 - 16.6 g/dL 12/04/2024 11:57 AM CDT CNFL Hematocrit 19.6(L) 38.3 - 48.6 % 12/04/2024 11:57 AM CDT CNFL Erythrocytes 1.82(L) 4.35 - 5.65 x10(12)/L 12/04/2024 11:57 AM CDT CNFL MCV 107.7(H) 78.2 - 97.9 fL 12/04/2024 11:57 AM CDT CNFL RBC Distrib Width 18.8(H) 11.8 - 14.5 % 12/04/2024 11:57 AM CDT CNFL Platelet Count 206 135 - 317 x10(9)/L 12/04/2024 11:57 AM CDT CNFL Leukocytes 3.4 3.4 - 9.6 x10(9)/L 12/04/2024 11:57 AM CDT CNFL Neutrophils 2.07 1.56 - 6.45 x10(9)/L 12/04/2024 11:57 AM CDT CNFL Lymphocytes 0.84(L) 0.95 - 3.07 x10(9)/L 12/04/2024 11:57 AM CDT CNFL Monocytes 0.38 0.26 - 0.81 x10(9)/L 12/04/2024 11:57 AM CDT CNFL Eosinophils 0.06 0.03 - 0.48 x10(9)/L 12/04/2024 11:57 AM CDT CNFL Basophils <0.04 0.01 - 0.08 x10(9)/L 12/04/2024 11:57 AM CDT CNFL Blood (Blood, Venous) 12/04/2024 11:22 AM CDT 12/04/2024 11:23 AM CDT us Slava Lees M.D. LAB BLOOD ADD-ON Final Resul t [facility] [address] [place] [address], [facility] CNFL [facility] in [place] [address] [place] [address] * (ABNORMAL) Iron and Total Iron-Binding Capacity (11/27/2024 11:38 AM CDT) Only the most recent of3 resultswithin the time period is included. Iron 226(H) 50 - 150 mcg/dL 11/27/2024 7:48 PM CDT [facility] Total Iron Binding Capacity 223(L) 250 - 400 mcg/dL 11/27/2024 7:48 PM CDT [facility] Percent Saturation >90(H) 14 - 50 % 11/27/2024 7:48 PM CDT [facility] Blood (Blood, Venous) 11/27/2024 11:38 AM CDT 11/27/2024 7:06 PM CDT Slava Lees M.D. LAB BLOOD ADD-ON Final Resul t [facility] [address] [place] [address], [facility] [place] [address] [place] [phone] * (ABNORMAL) Ferritin (11/27/2024 11:38 AM CDT) Only the most recent of3 resultswithin the time period is included. Ferritin, S 2736(H) 31 - 409 mcg/L 11/27/2024 8:21 PM CDT [facility] Comment: Biotin has been identified by the heel layer as a potential interfering substance. Higher concentrations of biotin may be found in multivitamins, hair/nail supplements, and workout supplements. If the result does not match clinical observations, repeat testing after patient refrains from the use of supplements for at least 12 hours. Blood (Blood, Venous) 11/27/2024 11:38 AM CDT 11/27/2024 7:05 PM CDT us Slvaa Lees M.D. LAB BLOOD ADD-ON Final Resul t [facility] [address] [place] [address], [facility] R[facility] [place] [address] [place] [address] * (ABNORMAL) Morphology Evaluation (11/06/2024 11:39 AM CDT) RBC Morphology See Specific Findings 11/06/2024 12:19 PM CDT CNFL PLT Morphology Normal 11/06/2024 12:19 PM CDT CNFL PLT Estimate Adequate Adequate 11/06/2024 12:19 PM CDT CNFL Anisocytosis Slight(A) 11/06/2024 12:19 PM CDT CNFL Elliptocytes Slight(A) Not Seen 11/06/2024 12:19 PM CDT CNFL Macrocytosis Moderate(A) Not Seen 11/06/2024 12:19 PM CDT CNFL Blood 11/06/2024 11:3 9 AM CDT 11/06/2024 11:44 AM CDT us Slava Lees M.D. LAB BLOOD ADD-ON Final Resul t Performing Organization Address [facility]/ZIP Co de Phone Number [facility] [address] [place] [address], [facility] CNFL [facility] in [address] [address] * Direct Antiglobulin Test (Polyspecific) (10/31/2024 3:17 PM THERAPIST OCCUPATIONAL) Direct Antiglobulin Test, Polyspecific Negative Negative 10/31/2024 4:33 PM THERAPIST OCCUPATIONAL DTL Blood 10/31/2024 3:17 PM THERAPIST OCCUPATIONAL 10/31/2024 3:39 PM THERAPIST OCCUPATIONAL us Frank Guardado LAB BLOOD BANK TEST ORD ERABLES [place] [address] * Soluble Transferrin Receptor (sTfR) (10/31/2024 3:17 PM THERAPIST OCCUPATIONAL) [facility] Soluble Transferrin Receptor (sTfR) 3.6 1.8 - 4.6 mg/L 10/31/2024 4:21 PM THERAPIST OCCUPATIONAL DT Comment: ----ADDITIONAL INFORMATION---- It is reported that Americans may have slightly higher values. Blood (Blood, Venous) 10/31/2024 3:17 PM THERAPIST OCCUPATIONAL 10/31/2024 3:54 PM THERAPIST OCCUPATIONAL Frank OwensB.S. LAB [place] [address] * LD (Lactate Dehydrogenase) (10/31/2024 3:17 PM THERAPIST OCCUPATIONAL) Only the most recent of2 resultswithin the time period is included. [facility] Lactate Dehydrogenase (LD), S 152 122 - 222 U/L 10/31/2024 4:21 PM THERAPIST OCCUPATIONAL DT Blood (Blood, Venous) 10/31/2024 3:17 PM THERAPIST OCCUPATIONAL 10/31/2024 3:54 PM THERAPIST OCCUPATIONAL Frank OwensB.S. LAB BLOOD NON [place] [address] * Folate (10/31/2024 3:17 PM THERAPIST OCCUPATIONAL) [facility] Folate, S 17.2 >=4.0 mcg/L 11/03/2024 8: 36 AM CDT DT Blood (Blood, Venous) 10/31/2024 3:17 PM THERAPIST OCCUPATIONAL 10/31/2024 3:54 PM THERAPIST OCCUPATIONAL Result [facility] Frank GrayS. LAB BLOOD ADD-ON Final Result Performing Organization Address [facility] de Phone Number [facility] [address] [place] [address] * Vitamin B12 Assay (10/31/2024 3:17 PM THERAPIST OCCUPATIONAL) Vitamin B12 Assay, S 248 180 - 914 ng/L 11/03/2024 8:44 AM CDT DT Comment: ----ADDITIONAL INFORMATION---- In patients being evaluated for vitamin B12 deficiency who have intrinsic factor blocking antibodies (IFBA), false elevations of B12 may occur due to IFBA interference thus potentially obscuring a physiological deficiency of B12. If observed B12 concentrations are discordant with clinical presentation, measurement of methylmalonic acid (MMA) should be considered. Blood (Blood, Venous) 10/31/2024 3:17 PM THERAPIST OCCUPATIONAL 10/31/2024 3:54 PM THERAPIST OCCUPATIONAL Result [facility] Frank GrayS. LAB BLOOD ADD-ON Final Result Performing Organization Address [facility] Co de Phone Number [facility] [address] [place] [address] * Bilirubin, Direct (10/31/2024 3:17 PM THERAPIST OCCUPATIONAL) Bilirubin, Direct, S 0.3 0.0 - 0.3 mg/dL 10/31/2024 4:21 PM THERAPIST OCCUPATIONAL DT Blood (Blood, Venous) 10/31/2024 3:17 PM THERAPIST OCCUPATIONAL 10/31/2024 3:54 PM THERAPIST OCCUPATIONAL Frank OwensB.S. LAB BLOOD ADD-ON Final Result Performing Organization Address City/[facility]/[place] [address] * Bilirubin, Total (10/31/2024 3:17 PM THERAPIST OCCUPATIONAL) Only the most recent of2 resultswithin the time period is included. Pathologist [facility] Bilirubin, Total, S 1.1 0.0 - 1.2 mg/dL 10/31/2024 4:21 PM THERAPIST OCCUPATIONAL DTL Blood (Blood, Venous) 10/31/2024 3:17 PM THERAPIST OCCUPATIONAL 10/31/2024 3:54 PM THERAPIST OCCUPATIONAL Frank OwensB.S. LAB BLOOD ADD-ON Final Result Performing Organization Address [facility] [place] [address] * (ABNORMAL) Morphology Eval (special smear) (10/31/2024 3:16 PM THERAPIST OCCUPATIONAL) [facility] Neutrophilic Segs and Bands 59 50 - 75 % 10/31/2024 5:35 PM THERAPIST OCCUPATIONAL [facility] Lymphocytes 23 18 - 42 % 10/31/2024 5:35 PM THERAPIST OCCUPATIONAL [facility] Monocytes 17(H) 2 - 11 % 10/31/2024 5:35 PM THERAPIST OCCUPATIONAL [facility] Eosinophils 1 1 - 3 % 10/31/2024 5:35 PM THERAPIST OCCUPATIONAL [facility] Interpretation See Comment 5:35 PM THERAPIST OCCUPATIONAL [facility] Comment:See leukemia/lymphom a phenotype report Reviewed by: Bernard 10/31/2024 5:35 PM THERAPIST OCCUPATIONAL [facility] Blood (Blood, Venous) 10/31/2024 3:16 PM THERAPIST OCCUPATIONAL 10/31/2024 3:35 PM THERAPIST OCCUPATIONAL Frank OwensB.S. LAB BLOOD ADD-ON Final Result Performing Organization Address City/[facility]/ZIP Co de Phone Number [facility] [address] [place] [address], [facility] [address] [place] [address] * Testosterone, Total, Bioavailable, and Free (10/31/2024 3:16 PM THERAPIST OCCUPATIONAL) [facility] Testosterone, Bioavailable, S 20 ng/dL 11/05/2024 9:14 PM [facility] Comment: ----REFERENCE VALUE---- Reference values have not been established for patients who are greater than 70 years of age. ----ADDITIONAL INFORMATION---- Testing performed by Liquid Chromatography-Tandem Mass Spectrometry (LC-MS/MS). This test was developed and its performance characteristics determined by [facility] in a manner consistent with CLIA requirements. This test has not been cleared or approved by the U.S. Food and Drug Administration. Testosterone, Total by Mass Spectrometry, Serum 622 240 - 950 ng/dL 11/04/2024 1:07 PM [facility] Comment: ----ADDITIONAL INFORMATION---- Testing performed by Liquid Chromatography-Tandem Mass Spectrometry (LC-MS/MS). This test was developed and its performance characteristics determined by [facility] in a manner consistent with CLIA requirements. This test has not been cleared or approved by the U.S. Food and Drug Administration. Testosterone, Free, S 6.75 3.28 - 12.2 ng/dL 11/04/2024 6:21 PM [facility] Comment: ----ADDITIONAL INFORMATION---- This test was developed and its performance characteristics determined by [facility] in a manner consistent with CLIA requirements. This test has not been cleared or approved by the U.S. Food and Drug Administration. Blood (Blood, Venous) 10/31/2024 3:16 PM THERAPIST OCCUPATIONAL 11/01/2024 7:17 AM THERAPIST OCCUPATIONAL us Frank Guardado LAB BLOOD NON ADD-ON Fi nal Result Performing Organization Address City/[facility]/ZIP Co de Phone Number [facility] [address] [place] [address] [facility] [address] [place] [address] [place] [address] * (ABNORMAL) Erythropoietin (EPO) (10/31/2024 3:16 PM THERAPIST OCCUPATIONAL) Pathologist [facility] Erythropoietin (EPO), S 144(H) 2.6 - 18.5 mIU/mL 11/01/2024 9:05 AM THERAPIST OCCUPATIONAL [facility] Blood (Blood, Venous) 10/31/2024 3:16 PM THERAPIST OCCUPATIONAL 11/01/2024 7:58 AM THERAPIST OCCUPATIONAL Frank GrayS. LAB BLOOD ADD-ON Final Result Performing Organization Address [facility]/ZIP Co de Phone Number [facility] [address] [place] [address] [facility] [address] [place] [address] * Copper (10/31/2024 3:16 PM THERAPIST OCCUPATIONAL) [facility] Copper, S 120 73 - 129 mcg/dL 11/01/2024 11:26 AM THERAPIST OCCUPATIONAL [facility] Comment: ----ADDITIONAL INFORMATION---- This test was developed and its performance characteristics determined by [facility] in a manner consistent with CLIA requirements. This test has not been cleared or approved by the U.S. Food and Drug Administration. Blood (Blood, Venous) 10/31/2024 3:16 PM THERAPIST OCCUPATIONAL 10/31/2024 8:50 PM THERAPIST OCCUPATIONAL Frank GrayS. LAB BLOOD NON ADD-ON Fi nal Result Performing Organization Address [facility]/ZIP Co de Phone Number [facility] [address] [place] [address] [facility] [address] [place] [address] [place] [address] * Haptoglobin (10/31/2024 3:16 PM THERAPIST OCCUPATIONAL) Pathologist [facility] Haptoglobin, S 112 30 - 200 mg/dL 10/31/2024 8:07 PM THERAPIST OCCUPATIONAL [facility] Blood (Blood, Venous) 10/31/2024 3:16 PM THERAPIST OCCUPATIONAL 10/31/2024 6:17 PM THERAPIST OCCUPATIONAL us Frank Guardado LAB BLOOD ADD-ON Final Result [facility] [address] [place] [address] [facility] [address] [place] [address] * PET CT Skull to Thigh FDG (10/31/2024 10:14 AM THERAPIST OCCUPATIONAL) Anatomical Region Laterality Modality Body, Nuclear Medicine PET R ST LOS, PET ARZ LOS, Nuclear Medicine PET FLA LOS, Nuclear Medicine N/A Positron Emission Tomography (PET), Positron Emission Tomography (PET) Impressions 10/31/2024 12:02 PM THERAPIST OCCUPATIONAL Mild diffusely increased nonspecific bone marrow uptake, which may be secondary to bone marrow hypercellularity described on recently performed bone marrow biopsy. Otherwise no PET evidence of hypermetabolic lymphoproliferative disorder. Narrative 10/31/2024 12:02 PM THERAPIST OCCUPATIONAL EXAM: PET CT SKULL TO THIGH FDG Serum glucose at time of F-18 FDG injection was 101 mg/dL. Patient followed standard dietary/fasting requirements for this exam. RADIOPHARMACEUTICAL/MEDS: Route: intravenous fludeoxyglucose F 18 injection HALF-WAY (FDG F-18),4.06 millicurie TECHNIQUE: F18 FDG PET/CT scan was performed from the vertex through the knees with low dose, non-contrast, free-breathing CT images for attenuation correction and anatomic localization (AC/AL), with imaging beginning at approximately 60 minutes after radiotracer injection. COMPARISON: CT chest 01/22/2014. Otherwise no relevant priors available at the time of interpretation. 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 Has been on cyclosporine since August 2015, last dose of cyclosporine around July 16, 2018. 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 Subsequent treatment strategy. The patient reports no recent vaccinations. FINDINGS: No FDG avid lymph nodes above or below the diaphragm. Mildly prominent retrocrural lymph nodes measuring up to 10 to 12 mm in the short axis, overall decreased when compared to CT chest 01/23/2024 with uptake below blood pool on today's PET/CT. No abnormal FDG uptake in the liver. Normal size spleen without suspicious splenic activity. No suspicious focally increased osseous FDG uptake. Mild diffusely increased nonspecific bone marrow uptake, which may be secondary to bone marrow hypercellularity described on bone marrow biopsy from 09/16/2024. Linear FDG uptake in the distal esophagus, favored to be reactive/inflammatory. Significant, low dose, unenhanced CT findings: Mild mucosal thickening of the left maxillary sinus. Mild coronary artery calcifications. Stable biapical scaring. Tiny FDG nonavid pleural calcification in the right upper lobe laterally (series 3 image 134), new since CT chest 01/22/2014. Mild trabeculation and wall thickening of the urinary bladder. Procedure Note Gianna Brizuela M.D. - 10/31/2024 EXAM: PET CT SKULL TO THIGH FDG Serum glucose at time of F-18 FDG injection was 101 mg/dL. Patientfollowed standard dietary/fasting requirements for this exam. RADIOPHARMACEUTICAL/MEDS: Route: intravenous fludeoxyglucose F 18 injection HALF-WAY (FDG F-18),4.06 millicurie TECHNIQUE: F18 FDG PET/CT scan was performed from the vertex through theknees with low dose, non-contrast, free-breathing CT images forattenuation correction and anatomic localization (AC/AL), with imagingbeginning at approximately 60 minutes after radiotracer injection. COMPARISON: CT chest 01/22/2014. Otherwise no relevant priors available atthe time of interpretation. 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 Possible pure red cell aplasia. Has been oncyclosporine since August 2015, last dose of cyclosporine around 2017. 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 Subsequent treatment strategy. The patient reports no recent vaccinations. FINDINGS: No FDG avid lymph nodes above or below the diaphragm. Mildly prominentretrocrural lymph nodes measuring up to 10 to 12 mm in the short axis,overall decreased when compared to CT chest 01/23/2024 with uptake belowblood pool on today's PET/CT. No abnormal FDG uptake in the liver. Normal size spleen without suspicioussplenic activity. No suspicious focally increased osseous FDG uptake. Mild diffuselyincreased nonspecific bone marrow uptake, which may be secondary to bonemarrow hypercellularity described on bone marrow biopsy from 09/16/2024. Linear FDG uptake in the distal esophagus, favored to bereactive/inflammatory. Significant, low dose, unenhanced CT findings: Mild mucosal thickening ofthe left maxillary sinus. Mild coronary artery calcifications. Stablebiapical scaring. Tiny FDG nonavid pleural calcification in the rightupper lobe laterally (series 3 image 134), new since CT chest 01/22/2014. Mild trabeculation and wall thickeningof the urinary bladder. IMPRESSION: Mild diffusely increased nonspecific bone marrow uptake, which may besecondary to bone marrow hypercellularity described on recently performedbone marrow biopsy. Otherwise no PET evidence of hypermetaboliclymphoproliferative disorder. us Slava Lees M.D. [facility] NM PROCEDURES Final Resu lt * Chronic Lymphocytic Leukemia (CLL), Diagnostic FISH (10/31/2024 8:13 AM THERAPIST OCCUPATIONAL) Pathologist [facility] Result Summary Normal 11/04/2024 8:17 PM CDT DTL Released by Esperanza Mera, Ph.D. 025 8:17 PM CDT DTL Result Table ----- Abnormality Name Result Abn% Cutoff% -6q23(D6Z1x2,MYBx 1) Normal <12.0 -11q22.3(V75O4n7, ATMx1) Normal <12.0 +12(D12Z3,MDM2)x3 Normal <7.0 -13q14.3(F75X515m 1,BFES8z2) Normal <12.0 -13q14.3x2(D13S31 9x0,VOHN4m3) Normal <5.0 t(11;14) CCND1-XT/IGH-XT fusion Normal <4.0 -17p13.1(TP53x1,D 17Z1x2) Normal <15.0 -17(TP53,D17Z1)x1 Normal <10.0 ----- 11/04/2024 8:17 PM CDT DTL Result Interphase FISH is normal for all loci studied. 11/04/2024 8:17 PM CDT DTL Reason for Referral chronic lymphocytic leukemia/CLL 11/04/2024 8:17 PM CDT DTL Specimen Blood 11/04/2024 8:17 PM CDT DTL Method Locus and probes [Strategy;#Nuclei; Vendor] ----- 6CEN(D6Z1),6q23.3( MYB) [COPY#;100;LDT/AM ] 11CEN(D11Z1),11q22 .3(CASH) [COPY#;100;AM] 11q13(CCND1-XT),14 q32(IGH-XT) [DFISH;200;AM] 12CEN(D12Z3),12q15 (MDM2) [COPY#;100;AM] 13q14.3(F50X392),1 3q34(LAMP1) [COPY#;100;AM] 17p13.1(TP53),17CE N(D17Z1) [COPY#;100;AM] Probe strategies include: DFISH=dual color, double fusion; COPY#=region gain and loss. Scoring Method: Manual Probe vendors include: LDT = [facility] Developed AM = [employer] ([place], [place]) 11/04/2024 8:17 PM CDT DTL Additional Information Previous Studies DATE SPECIMEN RESULT 05/20/2014 Blood MDS FISH panel within normal limits ----- 08/12/2014 Marrow No clonal abnormality was apparent 08/12/2014 Marrow Array=normal male ---- 02/25/2015 Marrow No clonal abnormality was apparent ---- 08/16/2015 Marrow No clonal abnormality was apparent ----- 08/16/2022 Marrow -Y in 02/07 metaphases ----- 09/16/2024 Marrow -Y in 03/15 metaphases ----- A portion of the testing process was performed at [facility] site [id number], [id number]. 11/04/2024 8:17 PM CDT DTL Disclaimer Applicable to Analyte Specific Reagent (ASR) and Laboratory Developed Tests (LDT). This test was developed and its performance characteristics determined by [facility] in a manner consistent with CLIA requirements. It has not been cleared or approved by the U.S. Food and Drug Administration. This FISH test does not rule out other chromosome abnormalities. 11/04/2024 8:17 PM CDT DTL Interpretation The result is within normal limits for the CLL FISH panel and the CCND1 and IGH gene regions. 11/04/2024 8:17 PM CDT DTL Blood (Blood, Venous) 10/31/2024 8:13 AM THERAPIST OCCUPATIONAL 10/31/2024 8:58 AM THERAPIST OCCUPATIONAL Slava Lees M.D. LAB GENETIC TESTING Final Re sult [facility] [address] [place] [address], [facility] DTL [address] [place] [address] * Leukemia/Lymphoma Immunophenotyping by Flow Cytometry, Blood (10/31/2024 8:13 AM THERAPIST OCCUPATIONAL) Pathologist [facility] LCMSB Result Performed 11/01/2024 11:49 AM THERAPIST OCCUPATIONAL DTL Final Diagnosis: Peripheral blood, flow cytometric immunophenotyping: Two distinct monoclonal kappa light chain-restricted B-cell population with immunophenotypic features of chronic lymphocytic leukemia/small lymphocytic lymphoma is identified. However, the size of this population does not meet quantitative criteria for chronic lymphocytic leukemia (5000 clonal B-cells per microL). The immunophenotypic characteristics of this population are similar to those seen in a previous bone marrow specimen ([id number]; 09/16/2024). Reviewed by: Elio Granados M.D. 11/01/2024 11:49 AM THERAPIST OCCUPATIONAL DTL Special Studies: WBC: 2.9 x 10(9)/L %Lymphs (CBC/automated differential): 43% #Lymphs (CBC/automated differential): 1.2 x 10(9)/L Results: Blasts: Not increased by CD45/side scatter and CD34. B-cells: Two monotypic B-cell populations are present. Population 1: Monotypic kappa (dim) Express: CD19, CD20 (dim), CD22 (dim), CD5, CD23 (dim), CD200. Do not express: CD10, CD38, CD11c, CD103. Estimated size: 7% gated lymphoid events; 3% total analyzed events Population 2: Monotypic kappa (dim) Express: CD19, CD20 (dim), CD22 (dim), CD5, CD23, CD38, CD200. Do not express: CD10, CD11c, CD103. Estimated size: 1% gated lymphoid events; <1% total analyzed events Absolute clonal B-cell count (calculated): 0.1 x 10(9)/L B-cell markers tested: Triage panel: CD10, CD19, CD45 and kappa and lambda immunoglobulin light chains. B-cell panel: CD5, CD11c, CD19, CD20, CD22, CD23, CD38, CD45, CD103, CD200 and kappa and lambda immunoglobulin light chains. T-cells/NK-cells: No aberrant phenotype by CD3 and CD16. Quality Assessment: Specimen received within validated guidelines. 11/01/2024 11:49 AM THERAPIST OCCUPATIONAL DTL Microscopic Description A Osnmxv-Dnavpq-mdjyu ed slide prepared from the flow cytometry specimen is examined. The specimen contains small lymphocytes with round nuclear contours, coarsely clumped chromatin and inconspicuous nucleoli. 11/01/2024 11:49 AM THERAPIST OCCUPATIONAL DTL Comment: ----ADDITIONAL INFORMATION---- This test was developed using an analyte specific reagent. Its performance characteristics were determined by [facility] in a manner consistent with CLIA requirements. This test has not been cleared or approved by the U.S. Food and Drug Administration. Blood (Blood, Peripheral Draw) 10/31/2024 8:13 AM THERAPIST OCCUPATIONAL 10/31/2024 9:06 AM THERAPIST OCCUPATIONAL us Slava Lees M.D. 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 Somatic hypermutation of the immunoglobulin heavy chain gene variable region (IGH-V) status is a recognized prognostic marker in chronic lymphocytic leukemia. Mutated CLL is defined by the presence of >2% IGH-V somatic mutation (or <98% identity to the closest germline sequence) and is independently associated with a relatively favorable prognosis. In contrast, unmutated IGH-V status, defined as <=2% somatic mutation (or >=98% germline sequence identity) is associated with relatively adverse prognosis (Moshe Soto et al, 2002, [id number]). Correlation of these results with clinical, pathologic and other pertinent laboratory data is required for final interpretation. Signing Pathologist: Isabel Kang M.D. 11/07/2024 3:29 PM CDT DTL Comment: ----ADDITIONAL INFORMATION---- Method Summary - IGH V-region (IGHV) somatic mutation analysis: DNA is extracted and IGH gene rearrangements are amplified by PCR method using leader and/or FR1 forward primers. Next generation sequencing of the PCR product clonal IGH variable (IGHV) region is performed. Sequences of functional IGHV rearrangements are compared to a germline IGH sequence database to determine the closest IGHV gene exon and percent nucleobase identity. Mutated IGHV status is assigned when the analyzed clonal sequence is greater than 2% different from the germline reference and unmutated status is defined as 2% or less deviation from the reference. This test was developed and its performance characteristics determined by [facility] in a manner consistent with CLIA requirements. This test has not been cleared or approved by the U.S. Food and Drug Administration. Blood (Blood, Peripheral Draw) 10/31/2024 8:13 AM THERAPIST OCCUPATIONAL 10/31/2024 9:04 AM THERAPIST OCCUPATIONAL us Slava Lees M.D. LAB GENETIC TESTING Final Re sult [facility] [address] [place] [address], [facility] DT [address] [place] [address] * Reticulocytes (10/31/2024 8:13 AM THERAPIST OCCUPATIONAL) Only the most recent of2 resultswithin the time period is included. Reticulocytes, B 1.53 0.60 - 2.71 % 10/31/2024 9:01 AM THERAPIST OCCUPATIONAL DT Absolute Reticulocyte 30.8 30.4 - 110.9 x10(9)/L 10/31/2024 9:01 AM THERAPIST OCCUPATIONAL DT Blood (Blood, Venous) 10/31/2024 8:13 AM THERAPIST OCCUPATIONAL 10/31/2024 8:39 AM THERAPIST OCCUPATIONAL Slava Lees M.D. LAB BLOOD ADD-ON Final Resul t Performing Organization Address [facility] Co de Phone Number [facility] [address] [place] [address], [facility] [address] [place] [address] * Immunoglobulins (IgG, IgA, and IgM) (10/31/2024 8:13 AM THERAPIST OCCUPATIONAL) Pathologist [facility] Immunoglobulin A (IgA), S 331 61 - 356 mg/dL 10/31/2024 2:28 PM THERAPIST OCCUPATIONAL [facility] Immunoglobulin M (IgM), S 149 37 - 286 mg/dL 10/31/2024 2:28 PM THERAPIST OCCUPATIONAL SDS Immunoglobulin G (IgG), S 1470 767 - 1590 mg/dL 10/31/2024 2:28 PM THERAPIST OCCUPATIONAL [facility] Blood (Blood, Venous) 10/31/2024 8:13 AM THERAPIST OCCUPATIONAL 10/31/2024 10:42 AM THERAPIST OCCUPATIONAL Slava Lees M.D. LAB BLOOD ADD-ON Final Resul t Performing Organization Address City/[facility]/ZIP Co de Phone Number [facility] [address] [place] [address] [facility] [address] [place] [address] * AST (Aspartate Aminotransferase) (10/31/2024 8:12 AM THERAPIST OCCUPATIONAL) Aspartate Aminotransferase (AST), S 20 8 - 48 U/L 10/31/2024 9:14 AM THERAPIST OCCUPATIONAL DT Blood (Blood, Venous) 10/31/2024 8:12 AM THERAPIST OCCUPATIONAL 10/31/2024 8:54 AM THERAPIST OCCUPATIONAL us Slava Lees M.D. LAB BLOOD ADD-ON Final Resul t [facility] [address] [facility] [address] [place] [address] * Alkaline Phosphatase (10/31/2024 8:12 AM THERAPIST OCCUPATIONAL) Alkaline Phosphatase, S 58 40 - 129 U/L 10/31/2024 9:14 AM THERAPIST OCCUPATIONAL DTL Blood (Blood, Venous) 10/31/2024 8:12 AM THERAPIST OCCUPATIONAL 10/31/2024 8:54 AM THERAPIST OCCUPATIONAL us Slava Lees M.D. LAB BLOOD ADD-ON Final Resul t Performing Organization Address City/[facility] Co de Phone Number [facility] [address] [facility] [address] [place] [address] * (ABNORMAL) Creatinine with Estimated GFR (10/31/2024 8:12 AM THERAPIST OCCUPATIONAL) Creatinine 1.90(H) 0.74 - 1.35 mg/dL 10/31/2024 9:14 AM THERAPIST OCCUPATIONAL DTL Estimated GFR (eGFR) 37(L) >=60 mL/min/BSA 10/31/2024 9:14 AM THERAPIST OCCUPATIONAL DTL Comment: Estimated GFR calculated using the 2020 CKD_EPI creatinine equation. Blood (Blood, Venous) 10/31/2024 8:12 AM THERAPIST OCCUPATIONAL 10/31/2024 8:54 AM THERAPIST OCCUPATIONAL us Slava Lees M.D. LAB BLOOD ADD-ON Final Resul t Performing Organization Address City/[facility]/ZIP Co de Phone Number [facility] [address] [facility] [address] [place] [address] * (ABNORMAL) Calcium, Total (10/31/2024 8:12 AM THERAPIST OCCUPATIONAL) [facility] Calcium, Total, S 8.6(L) 8.8 - 10.2 mg/dL 10/31/2024 9:14 AM THERAPIST OCCUPATIONAL [facility] Blood (Blood, Venous) 10/31/2024 8:12 AM THERAPIST OCCUPATIONAL 10/31/2024 8:54 AM THERAPIST OCCUPATIONAL Slava Lees M.D. LAB BLOOD ADD-ON Final Resul t Performing Organization Address City/[facility]/ZIP Co de Phone Number [facility] [address] [place] [address], [facility] [address] [place] [address] * (ABNORMAL) Xxzr-9-Tojsejsugfrre (Beta-2-M) (10/31/2024 8:12 AM THERAPIST OCCUPATIONAL) [facility] Yrok-8-Onrosyq obulin, S 5.91(H) 1.21 - 2.70 mcg/mL 10/31/2024 1:12 PM THERAPIST OCCUPATIONAL [facility] Blood (Blood, Venous) 10/31/2024 8:12 AM THERAPIST OCCUPATIONAL 10/31/2024 10:42 AM THERAPIST OCCUPATIONAL Slava Lees M.D. LAB BLOOD ADD-ON Final Resul t [facility] [address] [place] [address] [facility] [address] [place] [address] * TP53 Gene Somatic Mutation Pre-Analysis Cell Sorting (10/31/2024 8:09 AM THERAPIST OCCUPATIONAL) [facility] TP53 Pre-Analysis Cell Sort Performed 10/31/2024 9:29 PM THERAPIST OCCUPATIONAL [facility] Comment: ----ADDITIONAL INFORMATION---- Flow cytometric cell selection was performed with antibodies to the following antigens: CD19, CD20, CD45, surface kappa and lambda. Specimen enrichment for certain cell types is necessary, in order to enhance the sensitivity of genetic/molecular abnormalities detection in the cell population of interest, and to avoid unwanted contamination from other cell types. Flow cytometric cell sorting is the most direct and robust method of obtaining a pure population for subsequent genetic/molecular analysis, through assessment of a characteristic combination of cell surface antigens. This test was developed and its performance characteristics determined by [facility] in a manner consistent with CLIA requirements. This test has not been cleared or approved by the U.S. Food and Drug Administration. 10/31/2024 8:09 AM THERAPIST OCCUPATIONAL 10/31/2024 10:00 AM THERAPIST OCCUPATIONAL us Slava Lees M.D. LAB GENETIC TESTING Final Re sult Performing Organization Address [facility]/ZIP Co de Phone Number [address] [place] [address] * Magnesium (10/16/2024 10:01 AM THERAPIST OCCUPATIONAL) Magnesium, S 2.1 1.7 - 2.3 mg/dL 10/16/2024 11:00 AM THERAPIST OCCUPATIONAL DTL Blood (Blood, Venous) 10/16/2024 10:01 AM THERAPIST OCCUPATIONAL 10/16/2024 10:39 AM THERAPIST OCCUPATIONAL us Slava Lees M.D. LAB BLOOD ADD-ON Final Resul t Performing Organization Address City/[facility]/ZIP Co de Phone Number [facility] [address] [facility] [address] [place] [address] * (ABNORMAL) Comprehensive Metabolic Panel (10/16/2024 10:01 AM THERAPIST OCCUPATIONAL) Potassium, S 4.8 3.6 - 5.2 mmol/L 10/16/2024 11:00 AM THERAPIST OCCUPATIONAL DTL Sodium, S 136 135 - 145 mmol/L 10/16/2024 11:00 AM THERAPIST OCCUPATIONAL DTL Chloride, S 105 98 - 107 mmol/L 10/16/2024 11:00 AM THERAPIST OCCUPATIONAL DTL Bicarbonate, S 22 22 - 29 mmol/L 10/16/2024 11:00 AM THERAPIST OCCUPATIONAL DTL Anion Gap 9 7 - 15 10/16/2024 11:00 AM THERAPIST OCCUPATIONAL DTL BUN (Blood Urea Nitrogen), S 52(H) 8 - 24 mg/dL 10/16/2024 11:00 AM THERAPIST OCCUPATIONAL DTL Creatinine 2.03(H) 0.74 - 1.35 mg/dL 10/16/2024 11:00 AM THERAPIST OCCUPATIONAL DTL Estimated GFR (eGFR) 34(L) >=60 mL/min/BS A 10/16/2024 11:00 AM THERAPIST OCCUPATIONAL DTL Comment: Estimated GFR calculated using the 2020 CKD_EPI creatinine equation. Calcium, Total, S 8.5(L) 8.8 - 10.2 mg/dL 10/16/2024 11:00 AM THERAPIST OCCUPATIONAL DTL Glucose, S 89 70 - 140 mg/dL 10/16/2024 11:00 AM THERAPIST OCCUPATIONAL DTL Protein, Total, S 6.6 6.3 - 7.9 g/dL 10/16/2024 11:00 AM THERAPIST OCCUPATIONAL DTL Albumin, S 3.8 3.5 - 5.0 g/dL 10/16/2024 11:00 AM THERAPIST OCCUPATIONAL DTL Aspartate Aminotransferase (AST), S 21 8 - 48 U/L 10/16/2024 11:00 AM THERAPIST OCCUPATIONAL DTL Alkaline Phosphatase, S 66 40 - 129 U/L 10/16/2024 11:00 AM THERAPIST OCCUPATIONAL DTL Alanine Aminotransferase (ALT), S 19 7 - 55 U/L 10/16/2024 11:00 AM THERAPIST OCCUPATIONAL DTL Bilirubin, Total, S 0.9 0.0 - 1.2 mg/dL 10/16/2024 11:00 AM THERAPIST OCCUPATIONAL DTL Blood (Blood, Venous) 10/16/2024 10:01 AM THERAPIST OCCUPATIONAL 10/16/2024 10:39 AM THERAPIST OCCUPATIONAL us Slava Lees M.D. 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 See below for Variants of Unknown Significance and Additional Notes. Please see the section of Panel Gene List below for the complete list of genes tested. 09/23/2024 9:07 AM THERAPIST OCCUPATIONAL DTL Clinical Trials Information regarding possible clinical trials for this patient can be found at the following sites: 1). ClinicalTrials.gov: http://clinicaltrial s.gov/ct2/search/adv anced 2). [facility]: http://www.[facility]ner.[facility]/ research/clinical-tr ials 3). National Cancer [place]: http://www.cancer.go v/clinicaltrials/[facility] 4). The Leukemia & Lymphoma Society's Clinical Trial Support Center https://www.hematolo gy.org/education/cli nicians/clinical-tri jh-dnxghyv-bebbce 09/23/2024 9:07 AM THERAPIST OCCUPATIONAL DTL Variants of Unknown Significance (VUS) None 09/23/2024 9:07 AM THERAPIST OCCUPATIONAL DTL Additional Information IDH1: Chr2(GRCh37):g.85890 3192G>A; NM_005896.3(IDH1):c. 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 The variant is generally considered a benign polymorphism, with a reported population allele frequency ranging from 0.64% in the Eastern population up to 10.45% in the population. However, in some studies this polymorphic variant has been reported to be associated with shorter overall survival (OS) and relapse-free survival (RFS) in cytogenetically normal AML and de les AML (adults) which was more pronounced in a subgroup of patients with wild-type NPM1 or a FLT3-ITD (Roach et al., 2010, [id number]; Ho et al., 2011, [id number]). Similar association was not observed in pediatric AML patients (Ho et al., 2011, [id number]). This variant overall is considered a reportable likely benign variant. Of note: This silent polymorphism variant is considered a potential risk factor in a subset of AML patients as stated above. It does not represent the pathogenic alterations targetable by the FDA-approved IDH1 inhibitor. 09/23/2024 9:07 AM THERAPIST OCCUPATIONAL DTL Method DNA is extracted from peripheral blood or bone marrow specimens. Library preparation for Next Generation Sequencing (NGS) is performed followed by probe hybridization and capture. Sequencing of the final sample library is performed on a NGS instrument. Following bioinformatic processing of the sequencing data, the sequencing results are interpreted to provide a final clinical report. Genomic alterations are called according to human genome reference build GRCh37 (hg19). Performance characteristics of NGS panel: Single base substitutions: accuracy >99%; reproducibility 100% (intra- and interassay); sensitivity 2-4% variant allele fraction with a minimum depth of coverage of 500X. Small insertion/deletion events (up to 500 bp): accuracy >99%; reproducibility 100% (intra- and interassay); sensitivity 2-4.99% variant allele fraction with a minimum depth of coverage of 500X. Larger single gene insertion/deletion events with sizes between > or = 501 bp and < or = 5 kb with a variant allele fraction > or = 5% and minimum depth of coverage of 500X* will be reported. Variants involving multiple genes or single gene events > or = 1 kb with variant allele fractions between 2-5% will not be reported. Events > or = 5 kb with a variant allele fraction > or = 5% within a single gene may be identified and if present, general information on gene, chromosome, and event type will be provided in the Additional Notes section, with suggestion for confirmatory testing. This test was developed and its performance characteristics determined by [facility] in a manner consistent with CLIA requirements. This test has not been cleared or approved by the U.S. Food and Drug Administration. *Some genetic or genomic alterations such as very large insertion/deletion events, copy number alterations ([employer]) and gene translocation events are not detected by this assay. 09/23/2024 9:07 AM THERAPIST OCCUPATIONAL DTL Disclaimer CLINICAL DISCLAIMER The finding of a genetic alteration does not necessarily indicate the presence of a myeloid neoplasm. Some apparent mutations classified as VUS may represent very low population frequency polymorphisms. Hematopoietic cells in some individuals may have age-related genetic alterations associated with myeloid neoplasms in the absence of a hematologic malignancy (clonal hematopoiesis of indeterminate potential, CHIP, also known as age-related clonal hematopoiesis, ARCH). In addition, patients with unexplained cytopenias may also harbor similar myeloid neoplasm-associated gene mutations (clonal cytopenias of uncertain significance, CCUS) [PMIDs: 83850041, [id number], [id number], and [id number]]. Distinction between CHIP or CCUS and a myeloid malignancy requires correlation with clinical, pathologic, and other laboratory findings. Prior treatment for hematologic malignancy could affect the results obtained in this assay. In particular, prior allogeneic hematopoietic stem cell transplant (HSCT) may cause difficulties in resolving somatic or polymorphic alterations, or in assigning variant calls correctly to donor and recipient fractions, if pertinent clinical or laboratory information (e.g. chimerism engraftment status) is not provided. This assay does not distinguish between somatic and germline alterations in analyzed gene regions, particularly with VAF near 50% or 100%. If nucleotide alterations in genes associated with germline mutation syndromes are present and there is also a strong clinical suspicion or family history of malignant disease predisposition, additional genetic testing and appropriate counseling may be indicated. This report interpretation is based on current medical and scientific literature, but clinical significance may not be completely established for all reported target gene abnormalities identified. Correlation with clinical, histopathologic and additional laboratory findings is required for final interpretation of these results. The final interpretation of results for clinical management of the patient is the responsibility of the managing physician. TECHNICAL DISCLAIMER The depth of sequencing coverage may be variable for some target regions, but assay performance below the minimum acceptable criteria, or for failed regions are noted. Analysis of rare (low allele frequency) polymorphisms may be problematic in some cases. A low tumor cell percentage in the sample may affect the true mutation VAF and/or sensitivity. Suboptimal-performin g regions (i.e. less than the expected minimum depth of coverage) may affect analytic sensitivity for detecting lower level mutations. This is a qualitative test. The variant read fractions are provided for information only and represent a relative proportion of mutated alleles, but do not indicate a measure of analytical sensitivity for the given genes; assay sensitivity is as stated in the method summary. Some genetic or genomic alterations, such as very large insertion/deletion events, copy number alterations ([employer]) and gene translocation events are not detected by this assay. 09/23/2024 9:07 AM [facility] DT OncoHeme Panel Gene list [id number] (NM_014915.2) 5'UTR, start at c.-172, exons 1-4, ASXL1 (NM_015338.5) exons 10-13, BCOR (NM_001123385.1) exons 4-15, BCORL1 (NM_001184772.2) exons 1-13, BRAF (NM_004333.4), exons 11 and 15, CALR (NM_004343.3) exon 9, CBL (NM_005188.3) intron 7 last 100bp before start of exon 8, exon 8, intron 8, and exon 9, CEBPA (NM_004364.4) exon 1, CSF3R (NM_000760.3) exons 4, 13-14 and 17, DDX41 (NM_016222.2) exons 1-17, DNMT3A (NM_022552.4) exons 8-23, ELANE (NM_001972.2) exons 1-5, ETNK1 (NM_018638.4) exons 2-5, ETV6 (NM_001987.4) exons 3-8, EZH2 (NM_004456.4) exons 2-20, FLT3 (NM_004119.2) exons 14-20 and intron 14, GATA1 (NM_002049.3) exons 2 and 4, start at c.-19-30 before exon 2, GATA2 (NM_032638.4) exons 1-6, intron 4, c.1017+1 - 1017+870, IDH1 (NM_005896.3) exons 4, 6-8, IDH2 (NM_002168.3) exons 3-4, 6-8, JAK2 (NM_004972.3) exons 12-20, KDM6A (UTX) (NM_021140.3) exons 1-29, KIT (NM_000222.2) exons 8-11 and 17, KRAS (NM_033360.3) exons 2-4, MPL (NM_005373.2) exons 1-12, NF1 (NM_001042492.2), exons 1-58, NPM1 exons 9-11, intron 10 start 3 bp before exon 11, NRAS (NM_002524.4) exons 2-4, PHF6 (NM_001015877.1) exons 2-10, PPM1D (NM_003620.3) exons 1-6, PTPN11 (NM_002834.3) exons 3-4 and 12-13, RAD21 (NM_006265.2) exons 1-2, 4-7, 9-11, 13-14, intron 9 start 3 bp before exon 10, RUNX1 (NM_001754.4) exons 1-9, intron 7 start 13 bp before exon 8, SETBP1 (NM_015559.2) partial exon 4; amino acids 400 - 950, SH2B3 (LNK) (NM_005475.2) exon 2-8, SF3B1 (NM_012433.2) exons 13-16, SMC3 (NM_005445.3) exons 7-8, 13, 17, 19, 21, and 29, SRSF2 (NM_003016.4) exons 1-2, STAG2 (NM_001042750.1) exons 4-34, exons 12 and 17 start at -3 in preceding introns, STAT3 (NM_139276.2), exons 2-24, TERT (NM_198253.2) exons 2-16, TET2 (NM_001127208.2) exons 3-11, TP53 (NM_000546.4) exons 4-11, U2AF1 (NM_001025203.1) exons 2, 6, and 8, UBA1 (NM_003334.3) exons 2-26, WT1 (NM_024426.2) exons 1-10, and ZRSR2 (NM_005089.3) exons 1-11. Unless otherwise noted, intronic coverage surrounding exons is +/-10 bp. For some genes, the transcript IDs used in this analysis may differ from those present in cancer mutation databases or other similar sources. Variants will be reported out using HGVS nomenclature per the documentation version available at varnomen.hgvs.org at the time of the report. 09/23/2024 9:07 AM THERAPIST OCCUPATIONAL DTL Released by Signing Pathologist: Myranda Holbrook M.D. 09/23/2024 9:07 AM THERAPIST OCCUPATIONAL DTL Interpretation These results are considered ancillary findings and require complete integration with the current pathology case [id number] for final interpretation. The result should NOT be interpreted in isolation for the purposes of diagnosis or clinical management. 1) DNMT3A: Chr2(GRCh37):g.79456 800G>A; NM_022552.4(DNMT3A): c.1903C>T; p.[id number] Normal gene/protein function: The DNMT3A gene, located on chromosome 2p23.3, encodes the protein DNA (cytosine 5)-methyltransferase 3A, a member of a large family of enzymes involved in epigenetic regulation through DNA methylation (Deysi, 2011, 81999207; Li et al., 2007, 35837175). Mutation effect: The c.1903C>T (p.R635W) missense variant is located in the methyltransferase catalytic domain in the region of a motif responsible for cofactor binding (Roselia et al., 2006, 10426936). In vitro studies of this variant demonstrated significantly reduced methyltransferase function and protein stability (Shaw et al, 2, 46651221). DNMT3A is thought to be a tumor suppressor-like gene and decreased methyltransferase activity in DNMT3A induces increased cellular proliferation in vitro (Mehran et al., 2011, 25085711; Navjot et al., 2011, 86073053; Juwan et al., 2013, 15366520). In addition, missense variants at the R635 residue have been recurrently reported in multiple cases of myeloid neoplasms and solid tumors ([email or web address]://cancer.[facility] er.ac.uk/cosmic; Cristopher et al., 2013, 08156205; Mackenzie et al., 2016, 71526327; Jace et al., 2016, 06953619; Sharonda et al., 2016, 02915420; Heuser et al., 2017, 44086888; Cathy-Howard et al., 2019, 19564755; Daniel, 2017, 98902088). Therefore, the p.R635W variant is considered pathogenic. Disease associations: Approximately 19% of individuals with acute myeloid leukemia (AML) have a somatic mutation in the DNMT3A gene ([email or web address]://[email or web address].[email or web address]e r.ac.uk/cosmic). The presence of DNMT3A mutations, particularly mutations at codon 882, have been reported to be a poor prognostic factor in AML (Navjot et al., 2011, 68011901; Chahal et al., 2012, 39484562; Travisa et al., 2012, 61024627; Shidenyov et al., 2013, 43631363). However, other studies have not found DNMT3A mutation status to have significant impact on survival outcome (Shantell et al., 2013, 88990543; Juwan et al., 2013, 29604378). Approximately 7-13% of individuals with myelodysplastic syndrome (MDS), myeloproliferative neoplasm (MPN) or MDS/MPN have a somatic mutation in the DNMT3A gene (http://cancer.[facility]e r.ac.uk.cosmic). Some research suggests that the presence of DNMT3A mutations is a poor prognostic factor in MDS (Roxanne et al., 2014, 48812467; Remington et al., 2011, 72822789), whereas other studies have not found DNMT3A mutation status to be significantly associated with prognosis in MDS (Roller et al., 2013, 69775744). The presence of DNMT3A mutations shows no clear impact on survival outcome in primary myelofibrosis or chronic myelomonocytic leukemia patients (Gus et al., 2013, 16700165; Mackenzie et al., 2014, 43872964). Detection of a genetic alteration in a single gene (e.g. commonly, but not limited to DNMT3A, ASXL1, TET2, SF3B1, TP53, and others), usually as solitary abnormality, can also be seen with increasing age in individuals without a myeloid neoplasm, representing a clonal hematopoiesis of indeterminate potential (CHIP); this finding has been associated with an increased risk of developing a subsequent hematologic malignancy. In patients with unexplained cytopenia(s) despite adequate clinical evaluation, this finding may be consistent with clonal cytopenia(s) of undetermined significance (CCUS) (Fahad Perkins et al., 2017, 70215009). Clinical and pathologic correlation is suggested in this setting. Therapeutic implications: DNA methyltransferase inhibitors such as FDA-approved hypomethylating agents azacytidine and decitabine have shown therapeutic benefits in some MDS and AML patients. Although their effects on inactivating/damagin g DNMT3A mutations are currently elusive, therapy responses have been reported in some MDS and AML patients with DNMT3A mutations (Yudy et al., 2014, 75801368; Castro et al., 2014, 38212508). In AML patients younger than 60 years of age, DNMT3A mutations predicted an improved outcome with high-dose induction therapy (Alvarado et al., 2012, 27993087). 09/23/2024 9:07 AM THERAPIST OCCUPATIONAL DTL 09/16/2024 4:32 PM THERAPIST OCCUPATIONAL 09/17/2024 7:35 AM THERAPIST OCCUPATIONAL Slava Lees M.D. 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 09/24/2024 9:21 AM THERAPIST OCCUPATIONAL DTL Additional Information Previous Studies DATE SPECIMEN RESULT 05/20/2014 Blood MDS FISH panel within normal limits -------- 08/12/2014 Marrow No clonal abnormality was apparent 08/12/2014 Marrow Heme Microarray was Normal ------- 02/25/2015 Marrow No clonal abnormality was apparent ------- 08/16/2015 Marrow No clonal abnormality was apparent ------- 08/16/2022 Marrow -Y in 02/13 metaphases ------- A portion of the testing process was performed at [facility] site [id number], [id number]. 09/24/2024 9:21 AM THERAPIST OCCUPATIONAL DTL Released by Alanis Edwards D.O. 09/24/2024 9:21 AM THERAPIST OCCUPATIONAL DTL Interpretation Of 20 metaphases, 13 metaphases were normal and 7 metaphases had loss of the Y chromosome. In adult males, the absence of a Y chromosome without any other abnormality in metaphases from bone marrow is likely age-related (Adama et al., Leuk Res 35:7620-5976, 2011). This test was ordered in the context of a [facility] pathology consultation/case (#[id number]), and this result should be interpreted within the context of the pathology consultation/repo rt. 09/24/2024 9:21 AM THERAPIST OCCUPATIONAL DTL Bone Marrow 09/16/2024 4:32 PM THERAPIST OCCUPATIONAL 09/17/2024 7:23 AM THERAPIST OCCUPATIONAL us Slava Lees M.D. LAB GENETIC TESTING Final Re sult [facility] [address] [place] [address], [facility] DTL [address] [facility] [address] [place] [address] * Leukemia/Lymphoma Immunophenotyping by Flow Cytometry (09/16/2024 12:30 PM THERAPIST OCCUPATIONAL) LCMS Result Performed 09/19/2024 12:39 PM THERAPIST OCCUPATIONAL DTL Specimen Source Bone marrow 09/19/2024 12:39 PM THERAPIST OCCUPATIONAL DTL Final Diagnosis: These results are considered ancillary findings and require complete integration with the current pathology case <[id number]> for final interpretation. The result should NOT be interpreted in isolation for the purposes of diagnosis or clinical management. Bone marrow, flow cytometric immunophenotyping: Two distinct small monoclonal B-cell populations with immunophenotypic features of chronic lymphocytic leukemia/small lymphocytic lymphoma identified. A prior positive bone marrow flow cytometry study is noted ([id number]; 08/16/2022). The immunophenotypic characteristics of the current populations are similar to those reported previously. Reviewed by: Rebecca Vargas M.D. 09/19/2024 12:39 PM THERAPIST OCCUPATIONAL DTL Special Studies: %Lymphs: 35% Results: Blasts: Not increased by CD45/side scatter and CD34. B-cells: Two monotypic B-cell populations are present. Population 1: Monotypic (cytoplasmic) kappa Express: CD19, CD20 (dim), CD22 (dim), CD5, CD23, CD38, CD200. Do not express: CD10, CD11c, CD103. Estimated size: 28% gated lymphoid events; 8% total analyzed events Population 2: Monotypic (cytoplasmic) kappa Express: CD19, CD20 (dim), CD22 (dim), CD5 (dim), CD23 (dim), CD200. Do not express: CD10, CD38, CD11c, CD103. Estimated size: 7% gated lymphoid events; 2% total analyzed events B-cell markers tested: Triage panel: CD10, CD19, CD45 and kappa and lambda immunoglobulin light chains. B-cell panel: CD5, CD11c, CD19, CD20, CD22, CD23, CD38, CD45, CD103, CD200 and kappa and lambda immunoglobulin light chains. Cytoplasmic kappa and lambda immunoglobulin light chains. T-cells/NK-cells: No aberrant phenotype by CD3 and CD16. Quality assessment: Specimen received within validated guidelines. The specimen received was partially clotted. Results should be interpreted with caution. 09/19/2024 12:39 PM THERAPIST OCCUPATIONAL DTL Microscopic Description Consult case. Slide review not performed by flow technologist. 09/19/2024 12:39 PM THERAPIST OCCUPATIONAL DTL Comment: ----ADDITIONAL INFORMATION---- This test was developed using an analyte specific reagent. Its performance characteristics were determined by [facility] in a manner consistent with CLIA requirements. This test has not been cleared or approved by the U.S. Food and Drug Administration. 09/16/2024 12:3 0 PM THERAPIST OCCUPATIONAL 09/17/2024 11:30 AM THERAPIST OCCUPATIONAL us Slava Lees M.D. LAB GENETIC TESTING Final Re sult [facility] [address] [place], [place] [address] 200 [facility] 200 [place] [address] * [place] DX BONE MARROW BX & ASPIR (09/16/2024 12:30 PM THERAPIST OCCUPATIONAL) Bone Marrow Narrative [facility]ODAL - 09/16/2024 12:30 PM THERAPIST OCCUPATIONAL Jay Bocanegra R.N. 09/16/2024 12:35 PM Biopsy Bone Marrow, Sedated Performed by: Jay Bocanegra R.N. Authorized by: Slava Lees M.D. Care team members present 1. Jay Bocanegra R.N. 2. Louis Purdy PROCEDURE DETAILS Procedure: Bone Marrow biopsy and Bone Marrow aspiration Bone marrow biopsy Laterality: Right Location of biopsy: Posterior iliac crest Patient position: Side lying Type of Needle: Manual bone marrow biopsy needle Findings: Slides obtained and aspirate obtained with spicules noted Bone marrow aspiration Aspirate volume (mL): 18 CONSENT Consent obtained: written (Risks, benefits and alternatives were discussed and a written Informed Consent was obtained. Please see Informed Consent form for further details.) UNIVERSAL PROTOCOL All relevant documentation and testing were reviewed and available. All required blood products, implants, devices and or special equipment were made available as applicable. Pre-procedure verification was conducted and the correct site was marked if required. A fire risk and smoke assessment were done as applicable. The procedural time-out to verify correct patient, correct side/site, and procedure was conducted prior to performing the procedure and confirmed in a procedural pause. PRE-PROCEDURE DETAILS Appropriate hand hygiene, gown, cap, mask, protective eyewear, sterile gloves, skin preparation, sterile drape, and strict aseptic technique were utilized as applicable for the procedure.: yes Site preparation: chlorhexidine SEDATION / ANESTHESIA Anesthesia method: local infiltration Local infiltrate type: lidocaine POST-PROCEDURE DETAILS Procedure completed successfully: yes Complications: no apparent complications Post-procedure instructions: Post-procedure activity instructions provided COMMENTS Two attempts/aspirate. Lidocaine 1% 150 mg. Slava Lees M.D. PROCEDURE/MINOR SURGICAL ORD ERABLES Final Result MMODAL NA * Hematopathology (09/16/2024 12:00 AM THERAPIST OCCUPATIONAL) 09/19/2024 12:58 PM [facility] Participated in the Interpretation Jacqui Alcazar M.D. -Pathology Resident 09/19/2024 12:58 PM [facility] Report electronically signed by Rebecca Vargas M.D. I verify that I have examined all relevant slides/materials for the specimen(s) and rendered or confirmed the diagnosis. 09/19/2024 12:58 PM [facility] Gross Description B: Core biopsy specimens were received in B5 and were subsequently placed in formalin. Received in formalin labeled with the patient's name, medical record number, and bone marrow biopsy are two red-brown bone marrow cores, 0.3 cm in average diameter by 2.8 cm in aggregate length. Specimens are submitted en toto in cassette B1. The specimen was decalcified prior to processing. Grossed by AJJudith. C: Received in formalin labeled with the patient's name, medical record number, and bone marrow clot is a 1.5 x 1.1 x 0.7 cm aggregateof dark red bone marrow clot material. The specimen is submitted en toto in cassette C1. Grossed by AJJudith. 09/19/2024 12:58 PM [facility] Disclaimer This test was developed and its performance characteristics determined by [facility] in a manner consistent with CLIA requirements. This test has not been cleared or approved by the U.S. Food and Drug Administration. Test results for (IHC or MIGNON) testing are valid for specimens fixed between 6 and 72 hours. Delay to fixation, under fixation or over fixation fall outside of guidelines and may affect these results. 09/19/2024 12:58 PM [facility] Addendum ADDENDUM Cytogenetic analysis, bone marrow ([id number], 09/16/2024): 45,X,-Y[7]/46,XY[13] Of 20 metaphases, 13 metaphases were normal and 7 metaphases had loss of the Y chromosome. In adult males, the absence of a Y chromosome without any other abnormality in metaphases from bone marrow is likely age-related (Adama et al., Leuk Res 35:6267-3547, 2011). See cytogenetics report for complete details. Signed by Rebecca Vargas M.D. 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 1903C>T; p.Ugt933Akq (16%) No other pathogenic mutations were detected in the other genes tested on the panel at the reportable limit of assay detection. See full report for details. Please see the section of Panel Gene List in the full report for the complete list of genes tested. Variants of Uncertain Significance: None The VUS variants listed here (with approximate variant allele %) are not sufficiently characterized in the current literature and are therefore of uncertain clinical significance at this time. They are reported here for future reference in the event they become clinically significant in the light of new scientific data. Molecular Hematopathology studies interpreted by Myranda Holbrook M.D. Signed by Rebecca Vargas M.D. 09/23/2024 3:30 PM 09/25/2024 6:15 PM [facility] Comment:REVISED RESULTS Interpretation FINAL DIAGNOSISbut Peripheral blood, bone marrow aspirate and biopsy, iliac crest: 1. Involvement by monotypic kappa B-cell infiltrate with chronic lymphocytic leukemia (CLL)-like phenotype; involving 10-20% of the marrow cellularity. See Comment. 2. Moderately hypercellular bone marrow with left-shifted but adequate erythropoiesis, and otherwise morphologically unremarkable trilineage hematopoesis. COMMENT Although the finding of monotypic B-cell infiltrate with CLL-like phenotype raises the possibility of bone marrow involvement by CLL; in the absence of an absolute lymphocytosis, monoclonal B-cell lymphocytosis also enters the differential consideration. Clinical and laboratory/radiologica l correlation is recommended. An excisional lymph node biopsy may be considered if lymphadenopathy is present. MICROSCOPIC DESCRIPTION Peripheral Blood: CBC - 09/16/2024 10:23:00 AM HGB 8.7 g/dL; RBC 2.26 x10(12)/L; MCV 111.5 fL; RDW 13.6 %; WBC 3.9 x10(9)/L; PLT 245 x10(9)/L Cell % of Total Cells NEUTROPHILS 64 LYMPHOCYTES 22 MONOCYTES 10 EOSINOPHILS 1 BASOPHILS 3 METAMYELOCYTES 0 MYELOCYTES 0 PROMYELOCYTES 0 BLASTS 0 OTHER CELLS 0 NRBC 0 Total Cells: 100 Peripheral Smear: Red blood cells: Slight anisopoikilocytosis with macrocytosis. White blood cells: No cytologic abnormalities. Platelets: No cytologic abnormalities. Bone Marrow Aspirate/Touch Imprint: Cell % of Total Cells NEUTROPHILS 23 METAMYELOCYTES 5 MYELOCYTES 9 PROMYELOCYTES 0 EOSINOPHILS 0 BASOPHILS 0 BLASTS 1 NORMOBLASTS 10 MONOCYTES 1 PROMONOCYTES 0 LYMPHOCYTES 50 PLASMA CELLS 1 Technical Comment : Count done on touch prep Total Cells: 500 Quality: Spicular but hypocellular. M:E ratio: Normal, 4:1. Erythroid precursors: Left-shifted maturation. Myeloid precursors: Normal maturation. Blasts not increased. Megakaryocytes: Normal cytology. Lymphocytes: Increased; predominantly small with condensed chromatin and scant to moderate amount of cytoplasm. Plasma cells: Not increased. Bone Marrow Biopsy: Quality: Adequate. Cellularity: Moderately hypercellular (80%). Erythroid precursors: Moderately increased quantity. Left-shifted morphology. Myeloid Precursors: Moderately increased quantity. Normal morphology. Blasts not increased. Megakaryocytes: Moderately increased quantity. Unremarkable morphology and distribution. Lymphocytes: Abnormal infiltrate of small lymphocytes forming multiple lymphoid aggregates present, involving 10-20% of the marrow cellularity. Plasma cells: Not increased (<5%). ANCILLARY STUDIES Iron stain, bone marrow aspirate: Increased storage iron. Sideroblasts present. Ring sideroblasts not identified. Immunohistochemical studies, bone marrow biopsy, antibodies to CD3, CD20, CD71, and MPO: CD20 highlights an abnormal small B-cell infiltrate forming multiple aggregates, involving 10-20% of the marrow cellularity. CD3 highlights reactive T-cells. CD71 and MPO highlight adequate erythroid and granulocytic elements, respectively. Flow cytometric immunophenotyping, bone marrow: Blasts: Not increased by CD45/side scatter and CD34. B-cells: Two monotypic B-cell populations are present. Population 1: Monotypic (cytoplasmic) kappa Express: CD19, CD20 (dim), CD22 (dim), CD5, CD23, CD38, CD200. Do not express: CD10, CD11c, CD103. Estimated size: 28% gated lymphoid events; 8% total analyzed events Population 2: Monotypic (cytoplasmic) kappa Express: CD19, CD20 (dim), CD22 (dim), CD5 (dim), CD23 (dim), CD200. Do not express: CD10, CD38, CD11c, CD103. Estimated size: 7% gated lymphoid events; 2% total analyzed events B-cell markers tested: Triage panel: CD10, CD19, CD45 and kappa and lambda immunoglobulin light chains. B-cell panel: CD5, CD11c, CD19, CD20, CD22, CD23, CD38, CD45, CD103, CD200 and kappa and lambda immunoglobulin light chains. Cytoplasmic kappa and lambda immunoglobulin light chains. T-cells/NK-cells: No aberrant phenotype by CD3 and CD16. Quality assessment: Specimen received within validated guidelines. The specimen received was partially clotted. Results should be interpreted with caution. Quality assessment: Specimen received within validated guidelines. The specimen received was partially clotted. Results should be interpreted with caution. Both flow cytometry and immunohistochemistry (IHC) have been performed in the current case because they are medically necessary to arrive at the correct diagnosis. Several antigens analyzed by flow cytometry have also been evaluated by IHC on the paraffin-embedded tissue sections in order to interpret such immunophenotypic data in the context of cellular distribution and tissue architecture. Cytogenetic analysis, bone marrow aspirate: Sample has been forwarded for testing and results will be reported in an addendum. Molecular analysis, next generation sequencing myeloid neoplasm panel (NGSHM), bone marrow aspirate: Sample has been forwarded for testing. Results will be reported in an addendum. 09/25/2024 6:15 PM THERAPIST OCCUPATIONAL [facility] 09/16/2024 09/16/2024 6:1 8 AM THERAPIST OCCUPATIONAL us Slava Lees M.D. LAB SURG PATH ORDERABLES Pierre mckay Result - Final [facility] [address] [place] [address], [facility]PM [address] [place] [address] from Last [address] Mon[address] Insurance [address] [facility] Member Subscriber Plan / Payer (Ef fective 2015-Present) Name:Gurpreet Catalan Relation to Subscriber:Self Name:Gurpreet Catalan Payer ID:Not on file Group ID:[id number] Type:Indemnity Address: [address] [place] [address] Care Teams Loss Prevention Lead Relationship Specialty Start Date End Date Elsewhere, Pcp PCP - General Internal Medicine 07/16/23
--- OUTSIDE RECORDS SUMMARY | 2024-12-05 20:53 | XMS_ITS | Encounter Summary ---
Author Organization [facility] Address [address] [place] [phone] Care Team Providers Care Security Services Manager Name Role Phone Elsewhere, Pcp Primary Care Provider Unavailabl e Encounter Details Date Type Department Care Team (Latest Contact Info) Description 11/06/2024 4:30 PM CDT - 11/06/2024 11:59 PM CDT Hospital Encounter Department of Laboratory Medicine and Pathology, [facility] in [place], [place] [address] [place] [address] Slava Lees M.D. [address] [place] [address] Myelofibrosis (HCC) Discharge Disposition: Home or Self Care Social History Tobacco Use Types Packs/Day Years Used Date Smoking Tobacco: Former Cigarettes 1 4.4 0 11/25/1969 - 04/02/1974 Passive Smoke Exposure: Past Smokeless Tobacco: Never Comments: service ti me only Passive Exposure Comments:Dad When I was growing up & in the Service Alcohol Use Standard Drinks/Week Comments Yes 5 (1 standard drink = 0.6 oz pur e alcohol) [facility] Utilities Answer Date Recorded In the past [...] Date Recorded Dental: Regular Dentist Yes 03/26/20 23 Employment Answer Date Recorded Employment status Retired 04/10/2024 Housing Stability Answer Date Recorded What is your living situation today? 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 cycloSPORINE modified (Gengraf,NeoraL) 25 mg capsule TAKE 1 CAPSULE BY MOUTH 2 TIMES A DAY. 180 capsule 3 2024 cycloSPORINE modified (Gengraf,NeoraL) 50 mg capsule TAKE 2 CAPSULES BY MOUTH 2 TIMES A DAY. 360 capsule 3 08/18/2024 lisinopriL 10 mg tablet 08/05/2024 tamsulosin (Flomax) 0.4 mg 24 hr capsule take 1 capsule (0.4 mg) by mouth every day with food documented as of this encounter Plan of Treatment Upcoming Encounters Date Type Department Care Team (Late st Contact Info) Description 12/11/2024 1:20 PM CDT Appointment Department of Laboratory Medicine in [address] [address] Slava Lees M.D. [address] [place] [phone] 12/11/2024 2:30 PM CDT Infusion Department of Infusion Therapy in [address] [address] Slava Lees M.D. [address] [place] [phone] 12/18/2024 12:00 PM CDT Appointment Department of Laboratory Medicine in [address] [address] Slava Lees M.D. [address] [place] [phone] 12/25/2024 11:00 AM CDT Appointment Department of Laboratory Medicine in [address] [address] Slava Lees M.D. [address] [place] [phone] 12/25/2024 12:00 PM CDT Infusion Department of Infusion Therapy in [address] [address] Slava Lees M.D. [address] [place] [phone] 01/01/2025 11:10 AM CDT Appointment Department of Laboratory Medicine in [address] [address] Slava Lees M.D. [address] [place] [phone] 01/08/2025 1:30 PM CDT Appointment Department of Laboratory Medicine in [address] [address] Slava Lees M.D. [address] [place] [phone] 01/08/2025 2:30 PM CDT Infusion Department of Infusion Therapy in [address] [address] Slava Lees M.D. [address] [place] [phone] 01/15/2025 11:10 AM CDT Appointment Department of Laboratory Medicine in [address] [address] Slava Lees M.D. [address] [place] [phone] 01/22/2025 11:00 AM CDT Appointment Department of Laboratory Medicine in [address] [address] Slava Lees M.D. [address] [place] [phone] 01/22/2025 12:30 PM CDT Infusion Department of Infusion Therapy in [address] [address] Slava Lees M.D. [address] [place] [phone] 01/29/2025 11:10 AM CDT Appointment Department of Laboratory Medicine in [address] [address] Slava Lees M.D. [address] [place] [phone] 02/05/2025 1:30 PM CDT Appointment Department of Laboratory Medicine in [address] [address] Slava Lees M.D. [address] [place] [phone] 02/05/2025 2:30 PM CDT Infusion Department of Infusion Therapy in [address] [address] Slava Lees M.D. [address] [place] [phone] 02/12/2025 11:10 AM CDT Appointment Department of Laboratory Medicine in [address] [address] Slava Lees M.D. [address] [place] [address] 02/26/2025 11:10 AM CDT Appointment Department of Laboratory Medicine in [address] [address] Slava Lees M.D. [address] [place] [address] documented as of this encounter Procedures Procedure Name Priority Date/Time Associated Diagnosis Comments TYPE AND SCREEN Routine 11/06/2024 4:53 PM CDT Myelofibrosis (HCC) documented in this encounter Results * Type and Screen (with Reflex Antibody ID) (11/06/2024 4:53 PM CDT) Pathologist [facility] ABORh O Pos Not applicable 11/06/2024 5:47 PM CDT ETRM Antibody Screen Negative Negative 11/06/2024 6:00 PM CDT ETRM Type & Screen Expiration 11/09/2024 23:59 11/06/2024 5:47 PM CDT ETRM Testing Location [place] DEFAULT 11/06/2024 5:18 PM CDT ETRM Blood (Blood, Venous) 11/06/2024 4:53 PM CDT 11/06/2024 5:18 PM CDT Slava Lees M.D. LAB BLOOD BANK TEST ORDERABL ES Final Result [facility] [address] [place] [address], [place] ETRM [facility] 200 [place] [address] documented in this encounter Visit Diagnoses Diagnosis Myelofibrosis (HCC) documented in this encounter Care Teams Security Services Manager Relationship Specialty Start Date End Date Elsewhere, Pcp PCP - General Internal Medicine 07/16/23 documented as of this encounter
--- OUTSIDE RECORDS SUMMARY | 2024-12-05 20:53 | XMS_ITS | Encounter Summary ---
Author Organization [facility] Address [address] [place] [address] Care Team Providers Care Director Of Clinical Applications Name Role Phone Elsewhere, Pcp Primary Care Provider Unavailabl e Reason for Visit * Reason Onset Date Comments Appt Request 12/04/2024 Encounter Details Date Type Department Care Team (Late st Contact Info) Description 12/04/2024 Clinical Communication Department of Infusion Therapy in [address] [phone] Stiven Orlando, RMillaN. Appt Request Social History Tobacco Use Types Packs/Day Years Used Date Smoking Tobacco: Former Cigarettes 1 4.4 0 11/25/1969 - 04/02/1974 Passive Smoke Exposure: Past Smokeless Tobacco: Never Comments: service ti me only Passive Exposure Comments:Dad When I was growing up & in the Service Alcohol Use Standard Drinks/Week Comments Yes 5 (1 standard drink = 0.6 oz pur e alcohol) [facility] Utilities Answer Date Recorded In the past 12 months has [employer], gas, oil, or water [employer] threatened to shut off services in your [...] your living situation today? 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 - 12/04/2024 2:57 PM CDTAddended by: STIVEN ORLANDO on: 12/04/2024 02:57 PM Modules accepted: Orders documented in this encounter Plan of Treatment Upcoming Encounters Date Type Department Care Team (Late st [facility] Info) Description 12/11/2024 1:20 PM CDT Appointment Department of Laboratory Medicine in [address] [address] Slava Lees M.D. [address] [place] [phone] 12/11/2024 2:30 PM CDT Infusion Department of Infusion Therapy in [address] [address] Slava Lees M.D. [address] [place] [phone] 12/18/2024 12:00 PM CDT Appointment Department of Laboratory Medicine in [address] [address] Slava Lees M.D. [address] [place] [phone] 12/25/2024 11:00 AM CDT Appointment Department of Laboratory Medicine in [address] [address] Slava Lees M.D. [address] [place] [phone] 12/25/2024 12:00 PM CDT Infusion Department of Infusion Therapy in [address] [address] Slava Lees M.D. [address] [place] [phone] 01/01/2025 11:10 AM CDT Appointment Department of Laboratory Medicine in [address] [address] Slava Lees M.D. [address] [place] [phone] 01/08/2025 1:30 PM CDT Appointment Department of Laboratory Medicine in [address] [address] Slava Lees M.D. [address] [place] [phone] 01/08/2025 2:30 PM CDT Infusion Department of Infusion Therapy in [address] [address] Slava Lees M.D. [address] [place] [phone] 01/15/2025 11:10 AM CDT Appointment Department of Laboratory Medicine in [address] [address] Slava Lees M.D. [address] [place] [phone] 01/22/2025 11:00 AM CDT Appointment Department of Laboratory Medicine in [address] [address] Slava Lees M.D. [address] [place] [phone] 01/22/2025 12:30 PM CDT Infusion Department of Infusion Therapy in [address] [address] Slava Lees M.D. [address] [place] [phone] 01/29/2025 11:10 AM CDT Appointment Department of Laboratory Medicine in [address] [address] Slava Lees M.D. [address] [place] [phone] 02/05/2025 1:30 PM CDT Appointment Department of Laboratory Medicine in [address] [address] Slava Lees M.D. [address] [place] [phone] 02/05/2025 2:30 PM CDT Infusion Department of Infusion Therapy in [address] [address] Slava Lees M.D. [address] [place] [phone] 02/12/2025 11:10 AM CDT Appointment Department of Laboratory Medicine in [address] [address] Slava Lees M.D. [address] [place] [phone] 02/26/2025 11:10 AM CDT Appointment Department of Laboratory Medicine in [address] [place] [address] Slava Lees M.D. 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
--- OUTSIDE RECORDS SUMMARY | 2024-12-05 20:53 | XMS_ITS | Encounter Summary ---
Author Organization [facility] Address [address] [place] [address] Care Team Providers Care Product/Industry Consultant Name Role Phone Elsewhere, Pcp Primary Care Provider Unavailabl e Encounter Details Date Type Department Care Team (Late st Contact Info) Description 12/01/2024 Clinical Communication Division of Hematology in [place], [place] [address] [place] [address] Slava Lees M.D. [address] [place] [address] Social History Tobacco Use Types Packs/Day Years Used Date Smoking Tobacco: Former Cigarettes 1 4.4 0 11/25/1969 - 04/02/1974 Passive Smoke Exposure: Past Smokeless Tobacco: Never Comments: service ti me only Passive Exposure Comments:Dad When I was growing up & in the Service Alcohol Use Standard Drinks/Week Comments Yes 5 (1 standard drink = 0.6 oz pur e alcohol) [facility] Utilities Answer Date Recorded In the past 12 months has e [employer], gas, oil, or water [employer] threatened to shut off services in your [...] your living situation today? 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 - 12/04/2024 12:45 PM CDTAddended by: KAM TORRES on: 12/04/2024 12:45 PM Modules accepted: Orders documented in this encounter Plan of Treatment Upcoming Encounters Date Type Department Care Team (Late st Contact Info) Description 12/11/2024 1:20 PM CDT Appointment Department of Laboratory Medicine in [address] [address] Slava Lees M.D. [address] [place] [phone] 12/11/2024 2:30 PM CDT Infusion Department of Infusion Therapy in [address] [address] Slava Lees M.D. [address] [place] [phone] 12/18/2024 12:00 PM CDT Appointment Department of Laboratory Medicine in [address] [address] Slava Lees M.D. [address] [place] [phone] 12/25/2024 11:00 AM CDT Appointment Department of Laboratory Medicine in [address] [address] Slava Lees M.D. [address] [place] [phone] 12/25/2024 12:00 PM CDT Infusion Department of Infusion Therapy in [address] [address] Slava Lees M.D. [address] [place] [phone] 01/01/2025 11:10 AM CDT Appointment Department of Laboratory Medicine in [address] [address] Slava Lees M.D. [address] [place] [phone] 01/08/2025 1:30 PM CDT Appointment Department of Laboratory Medicine in [address] [address] Slava Lees M.D. [address] [place] [phone] 01/08/2025 2:30 PM CDT Infusion Department of Infusion Therapy in [address] [address] Slava Lees M.D. [address] [place] [phone] 01/15/2025 11:10 AM CDT Appointment Department of Laboratory Medicine in [address] [address] Slava Lees M.D. [address] [place] [phone] 01/22/2025 11:00 AM CDT Appointment Department of Laboratory Medicine in [address] [address] Slava Lees M.D. [address] [place] [phone] 01/22/2025 12:30 PM CDT Infusion Department of Infusion Therapy in [address] [address] Slava Lees M.D. [address] [place] [phone] 01/29/2025 11:10 AM CDT Appointment Department of Laboratory Medicine in [address] [address] Slava Lees M.D. [address] [place] [phone] 02/05/2025 1:30 PM CDT Appointment Department of Laboratory Medicine in [address] [address] Slava Lees M.D. [address] [place] [phone] 02/05/2025 2:30 PM CDT Infusion Department of Infusion Therapy in [address] [address] Slava Lees M.D. [address] [place] [phone] 02/12/2025 11:10 AM CDT Appointment Department of Laboratory Medicine in [address] [address] Slava Lees M.D. [address] [place] [phone] 02/26/2025 11:10 AM CDT Appointment Department of Laboratory Medicine in [address] [address] Slava Lees M.D. [address] [place] [address] Scheduled Orders Name Type Priority Associated Diagnoses Orde r Schedule CBC with Differential, Blood Lab Routine Myelofibrosis (HCC) every two weeks for 12 Occurrences starting 12/02/2024 until 03/03/2026 documented as of this encounter Visit Diagnoses Diagnosis Myelofibrosis (HCC)- Primary documented in this encounter Care Teams Product/Industry Consultant Relationship Specialty Start Date End Date Elsewhere, Pcp PCP - General Internal Medicine 07/16/23 documented as of this encounter
--- OUTSIDE RECORDS SUMMARY | 2024-12-05 20:53 | XMS_ITS | Encounter Summary ---
Author Organization [facility] Address [address] [place] [address] Care Team Providers Care Practice Lead Name Role Phone Elsewhere, Pcp Primary Care Provider Unavailabl e Encounter Details Date Type Department Care Team (Late st Contact Info) Description 12/04/2024 Clinical Communication Division of Hematology in [place], [place] [address] [place] [address] Slava Lees M.D. [address] [place] [address] Social History Tobacco Use Types Packs/Day Years Used Date Smoking Tobacco: Former Cigarettes 1 4.4 0 11/25/1969 - 04/02/1974 Passive Smoke Exposure: Past Smokeless Tobacco: Never Comments: service ti me only Passive Exposure Comments:Dad When I was growing up & in the Service Alcohol Use Standard Drinks/Week Comments Yes 5 (1 standard drink = 0.6 oz pur e alcohol) [facility] Utilities Answer Date Recorded In the past 12 months has e [employer], gas, oil, or water [employer] threatened to shut off services in your [...] your living situation today? 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 [address] [place] [phone] 12/11/2024 2:30 PM CDT Infusion Department of Infusion Therapy in [address] [address] Slava Lees M.D. [address] [place] [phone] 12/18/2024 12:00 PM CDT Appointment Department of Laboratory Medicine in [address] [address] Slava Lees M.D. [address] [place] [phone] 12/25/2024 11:00 AM CDT Appointment Department of Laboratory Medicine in [address] [address] Slava Lees M.D. [address] [place] [phone] 12/25/2024 12:00 PM CDT Infusion Department of Infusion Therapy in [address] [address] Slava Lees M.D. [address] [place] [phone] 01/01/2025 11:10 AM CDT Appointment Department of Laboratory Medicine in [address] [address] Slava Lees M.D. [address] [place] [phone] 01/08/2025 1:30 PM CDT Appointment Department of Laboratory Medicine in [address] [address] Slava Lese M.D. [address] [place] [phone] 01/08/2025 2:30 PM CDT Infusion Department of Infusion Therapy in [address] [address] Slava Lees M.D. [address] [place] [phone] 01/15/2025 11:10 AM CDT Appointment Department of Laboratory Medicine in [address] [address] Slava Lees M.D. [address] [place] [phone] 01/22/2025 11:00 AM CDT Appointment Department of Laboratory Medicine in [address] [address] Slava Lees M.D. [address] [place] [phone] 01/22/2025 12:30 PM CDT Infusion Department of Infusion Therapy in [address] [address] Slava Lees M.D. [address] [place] [phone] 01/29/2025 11:10 AM CDT Appointment Department of Laboratory Medicine in [address] [phone] Slava Lees M.D. [address] [place] [phone] 02/05/2025 1:30 PM CDT Appointment Department of Laboratory Medicine in [address] [address] Slava Lees M.D. [address] [place] [phone] 02/05/2025 2:30 PM CDT Infusion Department of Infusion Therapy in [address] [address] Slava Lees M.D. [address] [place] [phone] 02/12/2025 11:10 AM CDT Appointment Department of Laboratory Medicine in [address] [address] Slava Lees M.D. [address] [place] [phone] 02/26/2025 11:10 AM CDT Appointment Department of Laboratory Medicine in [address] [address] Slava Lees M.D. 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
--- OUTSIDE RECORDS SUMMARY | 2024-12-05 20:53 | XMS_ITS | Encounter Summary ---
Author Organization [facility] Address [address] [place] [address] Care Team Providers Care Dent Remover Name Role Phone Elsewhere, Pcp Primary Care Provider Unavailabl e Reason for Visit * Reason Onset Date Comments Nurse Assessment 12/05/2024 Encounter Details Date Type Department Care Team (Latest Contact Info) Description 12/05/2024 Clinical Communication Division of Hematology in [place], [place] [address] [place] [address] Slava Lees M.D. [address] [place] [address] Nurse Assessment Social History Tobacco Use Types Packs/Day Years [...] your living situation today? 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 - 12/05/2024 4:50 PM CDT Called and spoke with Gurpreet. Noted to him that we are concerned that he could have a blood clot. We recommend that he go to the emergency room to have it checked. He is in agreement and will present to his local ER. documented in this encounter Plan of Treatment Upcoming Encounters Date Type Department Care Team (Late st Contact Info) Description 12/11/2024 1:20 PM CDT Appointment Department of Laboratory Medicine in [address] [address] Slava Lees M.D. [address] [place] [phone] 12/11/2024 2:30 PM CDT Infusion Department of Infusion Therapy in [address] [phone] Slava Lees M.D. [address] [place] [phone] 12/18/2024 12:00 PM CDT Appointment Department of Laboratory Medicine in [address] [address] Slava Lees M.D. [address] [place] [phone] 12/25/2024 11:00 AM CDT Appointment Department of Laboratory Medicine in [address] [address] Slava Lees M.D. [address] [place] [phone] 12/25/2024 12:00 PM CDT Infusion Department of Infusion Therapy in [address] [address] Slava Lees M.D. [address] [place] [phone] 01/01/2025 11:10 AM CDT Appointment Department of Laboratory Medicine in [address] [address] Slava Lees M.D. [address] [place] [phone] 01/08/2025 1:30 PM CDT Appointment Department of Laboratory Medicine in [address] [address] Slava Lees M.D. [address] [place] [phone] 01/08/2025 2:30 PM CDT Infusion Department of Infusion Therapy in [address] [address] Slava Lees M.D. [address] [place] [phone] 01/15/2025 11:10 AM CDT Appointment Department of Laboratory Medicine in [address] [address] Slava Lees M.D. [address] [place] [phone] 01/22/2025 11:00 AM CDT Appointment Department of Laboratory Medicine in [address] [address] Slava Lees M.D. [address] [place] [phone] 01/22/2025 12:30 PM CDT Infusion Department of Infusion Therapy in [address] [address] Slava Lees M.D. [address] [place] [phone] 01/29/2025 11:10 AM CDT Appointment Department of Laboratory Medicine in [address] [address] Slava Lees M.D. [address] [place] [phone] 02/05/2025 1:30 PM CDT Appointment Department of Laboratory Medicine in [address] [address] Slava Lees M.D. [address] [place] [phone] 02/05/2025 2:30 PM CDT Infusion Department of Infusion Therapy in [address] [address] Slava Lees M.D. [address] [place] [phone] 02/12/2025 11:10 AM CDT Appointment Department of Laboratory Medicine in [address] [address] Slava Lees M.D. [address] [place] [phone] 02/26/2025 11:10 AM CDT Appointment Department of Laboratory Medicine in [address] [phone] Slava Lees M.D. [address] [place] [address] documented as of this encounter Visit Diagnoses Not on filedocumented in this encounter Care Teams Dent Remover Relationship Specialty Start Date End Date Elsewhere, Pcp PCP - General Internal Medicine 07/16/23 documented as of this encounter
--- OUTSIDE RECORDS SUMMARY | 2024-12-05 20:53 | XMS_ITS | Encounter Summary ---
Author Organization [facility] Address [address] [place] [address] Care Team Providers Care Service Desk Technician Name Role Phone Elsewhere, Pcp Primary Care Provider Unavailabl e Encounter Details Date Type Department Care Team (Latest Contact Info) Description 12/04/2024 11:15 AM CDT - 12/04/2024 11:59 PM CDT Hospital Encounter Department of Laboratory Medicine in [address] [phone] Slava Lees M.D. 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 [address] [place] [phone] 12/11/2024 2:30 PM CDT Infusion Department of Infusion Therapy in [address] [address] Slava Lees M.D. [address] [place] [phone] 12/18/2024 12:00 PM CDT Appointment Department of Laboratory Medicine in [address] [address] Slava Lees M.D. [address] [place] [phone] 12/25/2024 11:00 AM CDT Appointment Department of Laboratory Medicine in [address] [address] Slava Lees M.D. [address] [place] [phone] 12/25/2024 12:00 PM CDT Infusion Department of Infusion Therapy in [address] [address] Slava Lees M.D. [address] [place] [phone] 01/01/2025 11:10 AM CDT Appointment Department of Laboratory Medicine in [address] [address] Slava Lees M.D. [address] [place] [phone] 01/08/2025 1:30 PM CDT Appointment Department of Laboratory Medicine in [address] [address] Slava Lees M.D. [address] [place] [phone] 01/08/2025 2:30 PM CDT Infusion Department of Infusion Therapy in [address] [address] Slava Lees M.D. [address] [place] [phone] 01/15/2025 11:10 AM CDT Appointment Department of Laboratory Medicine in [address] [address] Slava Lees M.D. [address] [place] [phone] 01/22/2025 11:00 AM CDT Appointment Department of Laboratory Medicine in [address] [address] Slava Lees M.D. [address] [place] [phone] 01/22/2025 12:30 PM CDT Infusion Department of Infusion Therapy in [address] [address] Slava Lees M.D. [address] [place] [phone] 01/29/2025 11:10 AM CDT Appointment Department of Laboratory Medicine in [address] [address] Slava Lees M.D. [address] [place] [phone] 02/05/2025 1:30 PM CDT Appointment Department of Laboratory Medicine in [address] [address] Slava Lees M.D. [address] [place] [phone] 02/05/2025 2:30 PM CDT Infusion Department of Infusion Therapy in [address] [address] Slava Lees M.D. [address] [place] [phone] 02/12/2025 11:10 AM CDT Appointment Department of Laboratory Medicine in [address] [place] [address] Slava Lees M.D. [address] [place] [address] 02/26/2025 11:10 AM CDT Appointment Department of Laboratory Medicine in [address] [address] Slava Lees M.D. 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 LAB BLOOD BANK TEST ORDERABL ES Edited Result - Final [facility] [address] [place] [address], [facility] [place] [address] [place] [address] * Type and Screen (with Reflex Antibody ID) (12/04/2024 1:57 PM CDT) Pathologist [facility] ABO Group O 12/04/2024 7:54 PM CDT [...] BLOOD BANK TEST ORDERABL ES Final Result [facility] [address] [place] [address], [facility] [place] [address] [place] [address] * (ABNORMAL) CBC with Differential, Blood (12/04/2024 11:22 AM CDT) Pathologist [facility] Hemoglobin 6.5(L) 13.2 - 16.6 g/dL 12/04/2024 [...] 11:22 AM CDT 12/04/2024 11:23 AM CDT Slava Lees M.D. 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
--- OUTSIDE RECORDS SUMMARY | 2024-12-05 20:53 | XMS_ITS | Encounter Summary ---
Author Organization [facility] Address [address] [place] [address] Care Team Providers Care Cisco Network Architect Name Role Phone Elsewhere, Pcp Primary Care Provider Unavailabl e Reason for Visit * Reason Comments Outpatient Infusion Blood transfusion Encounter Details Date Type Department Care Team ([facility] st Contact Info) Description 12/05/2024 9:30 AM CDT Infusion Department of Infusion Therapy in [address] [phone] Slava Lees M.D. [address] [place] [address] Myelofibrosis (HCC) (Primary Dx) Social History Tobacco Use Types Packs/Day Years Used Date Smoking Tobacco: Former Cigarettes 1 4.4 0 11/25/1969 - 04/02/1974 Passive Smoke Exposure: Past Smokeless Tobacco: Never Comments: service ti me only Passive Exposure Comments:Dad When I was growing up & in the Service Alcohol Use Standard Drinks/Week Comments Yes 5 (1 standard drink = 0.6 oz pur e alcohol) [facility] Utilities Answer Date Recorded In [...] your living situation today? I have a [facility] place to live 04/10/2024 Sex and Gender Information Value Date Recorded Sex Assigned at Male 03/26/2023 7:11 AM CDT Legal Sex Male 7:47 PM SOUND TESTER Gender Identity Male 08/12/2018 1:39 PM SOUND TESTER Sexual Orientation Straight 08/12/2018 1: 39 PM SOUND TESTER documented as of this encounter Last Filed Vital Signs Vital Sign Reading Time Taken Comments Blood Pressure 117/64 12/05/2024 1:30 PM CDT Pulse 60 12/05/2024 1:30 PM CDT Temperature 36.4 C (97.5 F) 12/05/2024 1:30 PM CDT Respiratory Rate 16 12/05/2024 1:30 PM CDT Oxygen Saturation 100% 12/05/2024 1:30 PM CDT Inhaled Oxygen Concentration - - Weight - - Height - - Body Mass Index - - documented in this encounter Plan of Treatment Upcoming Encounters Date Type Department Care Team (Late st Contact Info) Description 12/11/2024 1:20 PM CDT Appointment Department of Laboratory Medicine in [address] [phone] Slava Lees M.D. [address] [place] [phone] 12/11/2024 2:30 PM CDT Infusion Department of Infusion Therapy in [address] [phone] Slava Lees M.D. [address] [place] [phone] 12/18/2024 12:00 PM CDT Appointment Department of Laboratory Medicine in [address] [phone] Slava Lees M.D. [address] [place] [phone] 12/25/2024 11:00 AM CDT Appointment Department of Laboratory Medicine in [address] [phone] Slava Lees M.D. [address] [place] [phone] 12/25/2024 12:00 PM CDT Infusion Department of Infusion Therapy in [address] [address] Slava Lees M.D. [address] [place] [phone] 01/01/2025 11:10 AM CDT Appointment Department of Laboratory Medicine in [address] [address] Slava Lees M.D. [address] [place] [phone] 01/08/2025 1:30 PM CDT Appointment Department of Laboratory Medicine in [address] [address] Slava Lees M.D. [address] [place] [phone] 01/08/2025 2:30 PM CDT Infusion Department of Infusion Therapy in [address] [address] Slava Lees M.D. [address] [place] [phone] 01/15/2025 11:10 AM CDT Appointment Department of Laboratory Medicine in [address] [address] Slava Lees M.D. [address] [place] [phone] 01/22/2025 11:00 AM CDT Appointment Department of Laboratory Medicine in [address] [address] Slava Lees M.D. [address] [place] [phone] 01/22/2025 12:30 PM CDT Infusion Department of Infusion Therapy in [address] [address] Slava Lees M.D. [address] [place] [phone] 01/29/2025 11:10 AM CDT Appointment Department of Laboratory Medicine in [address] [address] Slava Lees M.D. [address] [place] [phone] 02/05/2025 1:30 PM CDT Appointment Department of Laboratory Medicine in [address] [address] Slava Lees M.D. [address] [place] [phone] 02/05/2025 2:30 PM CDT Infusion Department of Infusion Therapy in [address] [address] Slava Lees M.D. [address] [place] [phone] 02/12/2025 11:10 AM CDT Appointment Department of Laboratory Medicine in [address] [address] Slava Lees M.D. [address] [place] [phone] 02/26/2025 11:10 AM CDT Appointment Department of Laboratory Medicine in [address] [place] [address] Slava Lees M.D. [address] [place] [address] Pending Results Name Type Priority Associated Diagnoses Date /Time Prepare Red Blood Cells, 1 Units Blood Bank Routine Myelofibrosis (HCC) 12/04/2024 1:57 PM CDT documented as of this encounter Procedures Procedure Name Priority Date/Time Associated Diagnosis Comments TRANSFUSE RED BLOOD CELLS Routine 12/05/2024 11:01 AM CDT Myelofibrosis (HCC) PREPARE RED BLOOD CELLS Routine 12/04/2024 1:57 P M CDT Myelofibrosis (HCC) documented in this encounter Results * Transfuse Red Blood Cells : (12/05/2024 1:37 PM CDT) us Slava Lees M.D. BLOOD TRANSFUSION ORDERABLES Final Result * Transfuse Red Blood Cells : , 1 Units (12/05/2024 1:37 PM CDT) us Slava Lees M.D. BLOOD TRANSFUSION ORDERABLES Final Result documented in this encounter Visit Diagnoses Diagnosis Myelofibrosis (HCC)- Primary documented in this encounter Care Teams Cisco Network Architect Relationship Specialty Start Date End Date Elsewhere, Pcp PCP - General Internal Medicine 07/16/23 documented as of this encounter
--- OUTSIDE RECORDS SUMMARY | 2024-12-05 20:53 | XMS_ITS | Encounter Summary ---
Author Organization [facility] Address [address] [place] [address] Care Team Providers Care Maintenance And Repair Worker Name Role Phone Elsewhere, Pcp Primary Care Provider Unavailabl e Encounter Details Date Type Department Care Team (Late st Contact Info) Description 11/06/2024 Results Follow-Up Division of Hematology in [place], [place] [address] [place] [address] Lexie Sampson RMillaNMilla CBC with Differential, Blood, Morphology Evaluation Social History Tobacco Use Types Packs/Day Years Used Date Smoking Tobacco: Former Cigarettes 1 4.4 0 11/25/1969 - 04/02/1974 Passive Smoke Exposure: Past Smokeless Tobacco: Never Comments: service ti me only Passive Exposure Comments:Dad When I was growing up & in the Service Alcohol Use Standard Drinks/Week Comments Yes 5 (1 standard drink = 0.6 oz pur e alcohol) [facility] Utilities Answer Date Recorded In the past 12 months has [facility] [employer], gas, oil, or water [employer] threatened to shut off services in your [...] your living situation today? I have a [facility] place to live 04/10/2024 Sex and Gender Information Value Date Recorded Sex Assigned at Male 03/26/2023 7:11 AM CDT Legal Sex Male 7:47 PM APPAREL TRIMMINGS SALES REPRESENTATIVE Gender Identity Male 08/12/2018 1:39 PM APPAREL TRIMMINGS SALES REPRESENTATIVE Sexual Orientation Straight 08/12/2018 1: 39 PM APPAREL TRIMMINGS SALES REPRESENTATIVE documented as of this encounter Plan of Treatment Upcoming Encounters Date Type Department Care Team (Late st Contact Info) Description 12/11/2024 1:20 PM CDT Appointment Department of Laboratory Medicine in [address] [phone] Slava Lees M.D. [address] [place] [phone] 12/11/2024 2:30 PM CDT Infusion Department of Infusion Therapy in [address] [address] Slava Lees M.D. [address] [place] [phone] 12/18/2024 12:00 PM CDT Appointment Department of Laboratory Medicine in [address] [address] Slava Lees M.D. [address] [place] [phone] 12/25/2024 11:00 AM CDT Appointment Department of Laboratory Medicine in [address] [address] Slava Lees M.D. [address] [place] [phone] 12/25/2024 12:00 PM CDT Infusion Department of Infusion Therapy in [address] [address] Slava Lees M.D. [address] [place] [phone] 01/01/2025 11:10 AM CDT Appointment Department of Laboratory Medicine in [address] [address] Slava Lees M.D. [address] [place] [phone] 01/08/2025 1:30 PM CDT Appointment Department of Laboratory Medicine in [address] [address] Slava Lees M.D. [address] [place] [phone] 01/08/2025 2:30 PM CDT Infusion Department of Infusion Therapy in [address] [address] Slava Lees M.D. [address] [place] [phone] 01/15/2025 11:10 AM CDT Appointment Department of Laboratory Medicine in [address] [address] Slava Lees M.D. [address] [place] [phone] 01/22/2025 11:00 AM CDT Appointment Department of Laboratory Medicine in [address] [address] Slava Lees M.D. [address] [place] [phone] 01/22/2025 12:30 PM CDT Infusion Department of Infusion Therapy in [address] [address] Slava Lees M.D. [address] [place] [phone] 01/29/2025 11:10 AM CDT Appointment Department of Laboratory Medicine in [address] [address] Slava Lees M.D. [address] [place] [phone] 02/05/2025 1:30 PM CDT Appointment Department of Laboratory Medicine in [address] [address] Slava Lees M.D. [address] [place] [phone] 02/05/2025 2:30 PM CDT Infusion Department of Infusion Therapy in [address] [address] Slava Lees M.D. [address] [place] [phone] 02/12/2025 11:10 AM CDT Appointment Department of Laboratory Medicine in [address] [address] Slava Lees M.D. [address] [place] [phone] 02/26/2025 11:10 AM CDT Appointment Department of Laboratory Medicine in [address] [address] Slava Lees M.D. [address] [place] [phone] documented as of this encounter Results * Type and Screen (with Reflex Antibody ID) (11/06/2024 4:53 PM CDT) ABORh O Pos Not applicable 11/06/2024 5:47 PM CDT [facility] Antibody Screen Negative Negative 11/06/2024 6:00 PM CDT [facility] Type & Screen Expiration 11/09/2024 23:59 11/06/2024 5:47 PM CDT ETR[facility] Testing Location [facility] DEFAULT 11/06/2024 5:18 PM CDT [facility] Blood (Blood, Venous) 11/06/2024 4:53 PM CDT 11/06/2024 5:18 PM CDT Slava Lees M.D. LAB BLOOD BANK TEST ORDERABL ES Final Result [facility] [address] [place] [address], [facility] [address] [place] [address] documented in this encounter Visit Diagnoses Diagnosis Myelofibrosis (HCC)- Primary documented in this encounter Care Teams Maintenance And Repair Worker Relationship Specialty Start Date End Date Elsewhere, Pcp PCP - General Internal Medicine 07/16/23 documented as of this encounter
--- OUTSIDE RECORDS SUMMARY | 2024-12-05 20:53 | XMS_ITS | Encounter Summary ---
Author Organization [facility] Address [address] [place] [address] Care Team Providers Care Office Supervisor Name Role Phone Elsewhere, Pcp Primary Care Provider Unavailabl e Encounter Details Date Type Department Care Team (Late st Contact Info) Description 12/05/2024 Orders Only Division of Hematology in [place], [place] [address] [place] [address] Slava Lees M.D. [address] [place] [address] Social History Tobacco Use Types Packs/Day Years Used Date Smoking Tobacco: Former Cigarettes 1 4.4 0 11/25/1969 - 04/02/1974 Passive Smoke Exposure: Past Smokeless Tobacco: Never Comments: service ti me only Passive Exposure Comments:Dad When I was growing up & in the Service Alcohol Use Standard Drinks/Week Comments Yes 5 (1 standard drink = 0.6 oz pur e alcohol) [facility] Utilities Answer Date Recorded In the past 12 months has e [place], gas, oil, or water [employer] threatened to shut off services in your [...] your living situation today? I have a [facility] place to live 04/10/2024 Sex and Gender Information Value Date Recorded Sex Assigned at Male 03/26/2023 7:11 AM CDT Legal Sex Male 7:47 PM QUALITY CLOTH TESTER Gender Identity Male 08/12/2018 1:39 PM QUALITY CLOTH TESTER Sexual Orientation Straight 08/12/2018 1: 39 PM QUALITY CLOTH TESTER documented as of this encounter Plan of Treatment Upcoming Encounters Date Type Department Care Team (Late st Contact Info) Description 12/11/2024 1:20 PM CDT Appointment Department of Laboratory Medicine in [address] [phone] Slava Lees M.D. [address] [place] [phone] 12/11/2024 2:30 PM CDT Infusion Department of Infusion Therapy in [address] [address] Slava Lees M.D. [address] [place] [phone] 12/18/2024 12:00 PM CDT Appointment Department of Laboratory Medicine in [address] [address] Slava Lees M.D. [address] [place] [phone] 12/25/2024 11:00 AM CDT Appointment Department of Laboratory Medicine in [address] [address] Slava Lees M.D. [address] [place] [phone] 12/25/2024 12:00 PM CDT Infusion Department of Infusion Therapy in [address] [address] Slava Lees M.D. [address] [place] [phone] 01/01/2025 11:10 AM CDT Appointment Department of Laboratory Medicine in [address] [address] Slava Lees M.D. [address] [place] [phone] 01/08/2025 1:30 PM CDT Appointment Department of Laboratory Medicine in [address] [address] Slava Lees M.D. [address] [place] [phone] 01/08/2025 2:30 PM CDT Infusion Department of Infusion Therapy in [address] [address] Slava Lees M.D. [address] [place] [phone] 01/15/2025 11:10 AM CDT Appointment Department of Laboratory Medicine in [address] [address] Slava Lees M.D. [address] [place] [phone] 01/22/2025 11:00 AM CDT Appointment Department of Laboratory Medicine in [address] [address] Slava Lees M.D. [address] [place] [phone] 01/22/2025 12:30 PM CDT Infusion Department of Infusion Therapy in [address] [address] Slava Lees M.D. [address] [place] [phone] 01/29/2025 11:10 AM CDT Appointment Department of Laboratory Medicine in [address] [phone] Slava Lees M.D. [address] [place] [phone] 02/05/2025 1:30 PM CDT Appointment Department of Laboratory Medicine in [address] [address] Slava Lees M.D. [address] [place] [phone] 02/05/2025 2:30 PM CDT Infusion Department of Infusion Therapy in [address] [address] Slava Lees M.D. [address] [place] [phone] 02/12/2025 11:10 AM CDT Appointment Department of Laboratory Medicine in [address] [address] Slava Lees M.D. [address] [place] [phone] 02/26/2025 11:10 AM CDT Appointment Department of Laboratory Medicine in [address] [address] Slava Lees M.D. [address] [place] [phone] documented as of this encounter Visit Diagnoses Not on filedocumented in this encounter Care Teams Office Supervisor Relationship Specialty Start Date End Date Elsewhere, Pcp PCP - General Internal Medicine 07/16/23 documented as of this encounter
--- OUTSIDE RECORDS SUMMARY | 2024-12-05 20:53 | XMS_ITS | Encounter Summary ---
Author Organization [facility] Address [address] [place] [address] Care Team Providers Care Dietary Manager Name Role Phone Elsewhere, Pcp Primary Care Provider Unavailabl e Reason for Visit * Reason Comments Leg Pain Presents with report s of left leg pain for the last 3 days and was told to get it looked at by his solar installation helper he is at increased risk for blood clots Encounter Details Date Type Department Care Team (Late st Contact Info) Description 12/05/2024 6:01 PM CDT - 12/05/2024 6:33 PM CDT Emergency [facility] [address] [place] [phone] Bela Whyte, SHANIQUA, C.N.P. [address] [place] [phone] Pain In Left Lower Leg (Primary Dx) Discharge Disposition: Home or Self Care Social [...] drink = 0.6 oz pur e alcohol) [facility] Utilities Answer Date Recorded In [...] your living situation today? I have a [facility] place to live 04/10/2024 Sex and Gender Information Value Date Recorded Sex Assigned at Male 03/26/2023 7:11 AM CDT Legal Sex Male 7:47 PM CRYSTAL GROWING TECHNICIAN Gender Identity Male 08/12/2018 1:39 PM CRYSTAL GROWING TECHNICIAN Sexual Orientation Straight 08/12/2018 1: 39 PM CRYSTAL GROWING TECHNICIAN documented as of this encounter Last Filed Vital Signs Vital Sign Reading Time Taken Comments Blood Pressure 131/82 12/05/2024 6:00 PM CDT Pulse 85 12/05/2024 6:00 PM CDT Temperature 36.8 C (98.2 F) 12/05/2024 6:04 PM CDT Respiratory Rate - - Oxygen Saturation 94% 12/05/2024 6:00 PM CDT Inhaled Oxygen Concentration - - Weight 70 kg (154 lb 5.2 oz) 12/05/2024 6:23 PM CDT Height - - Body Mass Index 25.25 11/13/2024 12:44 PM CDT documented in this encounter Discharge Instructions * Discharge Instructions* Bela Whyte APRN, C.N.P. - 12/05/2024 6:24 PM CDT Recommended to get lab work completed as well as ultrasound to evaluate for DVT. documented in this encounter Medications at Time of Discharge [...] CDT Appointment Department of Laboratory Medicine in [address] [phone] Slava Lees M.D. [address] [place] [phone] 12/11/2024 2:30 PM CDT Infusion Department of Infusion Therapy in [address] [address] Slava Lees M.D. [address] [place] [phone] 12/18/2024 12:00 PM CDT Appointment Department of Laboratory Medicine in [address] [address] Slava Lees M.D. [address] [place] [phone] 12/25/2024 11:00 AM CDT Appointment Department of Laboratory Medicine in [address] [address] Slava Lees M.D. [address] [place] [phone] 12/25/2024 12:00 PM CDT Infusion Department of Infusion Therapy in [address] [address] Slava Lees M.D. [address] [place] [phone] 01/01/2025 11:10 AM CDT Appointment Department of Laboratory Medicine in [address] [address] Slava Lees M.D. [address] [place] [phone] 01/08/2025 1:30 PM CDT Appointment Department of Laboratory Medicine in [address] [address] Slava Lees M.D. [address] [place] [phone] 01/08/2025 2:30 PM CDT Infusion Department of Infusion Therapy in [address] [address] Slava Lees M.D. [address] [place] [phone] 01/15/2025 11:10 AM CDT Appointment Department of Laboratory Medicine in [address] [address] Slava Lees M.D. [address] [place] [phone] 01/22/2025 11:00 AM CDT Appointment Department of Laboratory Medicine in [address] [address] Slava Lees M.D. [address] [place] [phone] 01/22/2025 12:30 PM CDT Infusion Department of Infusion Therapy in [address] [address] Slava Lees M.D. [address] [place] [phone] 01/29/2025 11:10 AM CDT Appointment Department of Laboratory Medicine in [address] [address] Slava Lees M.D. [address] [place] [phone] 02/05/2025 1:30 PM CDT Appointment Department of Laboratory Medicine in [address] [address] Slava Lees M.D. [address] [place] [phone] 02/05/2025 2:30 PM CDT Infusion Department of Infusion Therapy in [address] [address] Slava Lees M.D. [address] [place] [phone] 02/12/2025 11:10 AM CDT Appointment Department of Laboratory Medicine in [address] [address] Slava Lees M.D. [address] [place] [phone] 02/26/2025 11:10 AM CDT Appointment Department of Laboratory Medicine in [address] [address] Slava Lees M.D. [address] [place] [phone] documented as of this encounter Visit Diagnoses Diagnosis Pain In Left Lower Leg- Primary documented in this encounter Care Teams Dietary Manager Relationship Specialty Start Date End Date Elsewhere, Pcp PCP - General Internal Medicine 11/20/23 documented as of this encounter
--- OUTSIDE RECORDS SUMMARY | 2024-12-05 20:53 | XMS_ITS | Encounter Summary ---
Author Organization [facility] Address [address] [place] [address] Care Team Providers Care Burner Technician Name Role Phone Elsewhere, Pcp Primary Care Provider Unavailabl e Reason for Visit * Episode Based Medications (Routine) - Authorized Specialty Diagnoses / Procedures Referred By Titus dallas Referred To Contact Diagnoses Aplasia Red Cell (HCC) Slava Lees M.D. 200 [place] [address] Phone: tel: fax: Slava Lees M.D. [address] [place] [address] Phone: tel: fax: Referral ID Status Reason Start Date Expiration Date V isits Requested Visits Authorized [id number] Authorized 11/13/2024 11/13/2026 99 99 Encounter Details Date Type Department Care Team (Latest Contact Info) Description 11/27/2024 11:30 AM CDT - 11/27/2024 11:59 PM CDT Hospital Encounter Department of Laboratory Medicine in [address] [phone] Slava Lees M.D. 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 No 08/1 12/2023 In the past 12 months, has l [...] your living situation today? I have a [facility] place to live 04/10/2024 Sex and Gender Information Value Date Recorded Sex Assigned at Male 03/26/2023 7:11 AM CDT Legal Sex Male 7:47 PM QA ARCHITECT Gender Identity Male 08/12/2018 1:39 PM QA ARCHITECT Sexual Orientation Straight 08/12/2018 1: 39 PM QA ARCHITECT documented as of this encounter Medications at [...] CDT Appointment Department of Laboratory Medicine in [address] [phone] Slava Lees M.D. 200 [place] [address] 12/11/2024 2:30 PM CDT Infusion Department of Infusion Therapy in [address] [phone] Slava Lees M.D. [address] [place] [phone] 12/18/2024 12:00 PM CDT Appointment Department of Laboratory Medicine in [address] [address] Slava Lees M.D. [address] [place] [phone] 12/25/2024 11:00 AM CDT Appointment Department of Laboratory Medicine in [address] [address] Slava Lees M.D. [address] [place] [phone] 12/25/2024 12:00 PM CDT Infusion Department of Infusion Therapy in [address] [address] Slava Lees M.D. [address] [place] [phone] 01/01/2025 11:10 AM CDT Appointment Department of Laboratory Medicine in [address] [address] Slava Lees M.D. [address] [place] [phone] 01/08/2025 1:30 PM CDT Appointment Department of Laboratory Medicine in [address] [address] Slava Lees M.D. [address] [place] [phone] 01/08/2025 2:30 PM CDT Infusion Department of Infusion Therapy in [address] [address] Slava Lees M.D. [address] [place] [phone] 01/15/2025 11:10 AM CDT Appointment Department of Laboratory Medicine in [address] [address] Slava Lees M.D. [address] [place] [phone] 01/22/2025 11:00 AM CDT Appointment Department of Laboratory Medicine in [address] [address] Slava Lees M.D. [address] [place] [phone] 01/22/2025 12:30 PM CDT Infusion Department of Infusion Therapy in [address] [address] Slava Lees M.D. [address] [place] [phone] 01/29/2025 11:10 AM CDT Appointment Department of Laboratory Medicine in [address] [address] Slava Lees M.D. [address] [place] [phone] 02/05/2025 1:30 PM CDT Appointment Department of Laboratory Medicine in [address] [address] Slava Lees M.D. [address] [place] [phone] 02/05/2025 2:30 PM CDT Infusion Department of Infusion Therapy in [address] [address] Slava Lees M.D. [address] [place] [phone] 02/12/2025 11:10 AM CDT Appointment Department of Laboratory Medicine in [address] [address] Slava Lees M.D. [address] [place] [phone] 02/26/2025 11:10 AM CDT Appointment Department of Laboratory Medicine in [address] [address] Slava Lees M.D. 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 LAB BLOOD ADD-ON Final Resul t Performing Organization Address City/[facility] Co de Phone Number [facility] [address] [place] [address], [place] [facility] [address] [facility] [place] [address] * (ABNORMAL) Ferritin (11/27/2024 11:38 AM CDT) Ferritin, S 2736(H) 31 - 409 mcg/L 11/27/2024 8:21 PM CDT [facility] Comment: Biotin has been identified by the balance screwhead polisher as a potential interfering substance. Higher concentrations of biotin may be found in multivitamins, hair/nail supplements, and workout supplements. If the result does not match clinical observations, repeat testing after patient refrains from the use of supplements for at least 12 hours. Blood (Blood, Venous) 11/27/2024 11:38 AM CDT 11/27/2024 7:05 PM CDT us Slava Lees M.D. LAB BLOOD ADD-ON Final Resul t Performing Organization Address City/[facility]/ZIP Co de Phone Number [facility] [address] [place] [address], [place] [facility] [place] [address] [place] [address] * (ABNORMAL) CBC with Differential, Blood (11/27/2024 11:38 AM CDT) [facility] Hemoglobin 7.1(L) 13.2 - 16.6 g/dL 11/27/2024 12:34 PM CDT CN[facility] Hematocrit 21.6(L) 38.3 - 48.6 % 11/27/2024 12:34 PM CDT [facility] Erythrocytes 2.01(L) 4.35 - 5.65 x10(12)/L 11/27/2024 12:34 PM CDT CN[facility] MCV 107.5(H) 78.2 - 97.9 fL 11/27/2024 12:34 PM CDT [facility] RBC Distrib Width 18.2(H) 11.8 - 14.5 % 11/27/2024 12:34 PM CDT CN[facility] Platelet Count 210 135 - 317 x10(9)/L 11/27/2024 12:34 PM CDT [facility] Leukocytes 3.6 3.4 - 9.6 x10(9)/L 11/27/2024 12:34 PM CDT CNFL Neutrophils 2.23 1.56 - 6.45 x10(9)/L 11/27/2024 12:34 PM CDT CNFL Lymphocytes 1.07 0.95 - 3.07 x10(9)/L 11/27/2024 12:34 PM CDT CNFL Monocytes 0.21(L) 0.26 - 0.81 x10(9)/L 11/27/2024 12:34 PM CDT CNFL Eosinophils 0.05 0.03 - 0.48 x10(9)/L 11/27/2024 12:34 PM CDT CNFL Basophils <0.04 0.01 - 0.08 x10(9)/L 11/27/2024 12:34 PM CDT CNFL Blood (Blood, Venous) 11/27/2024 11:38 AM CDT 11/27/2024 11:40 AM CDT us Slava Lees M.D. 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
--- OUTSIDE RECORDS SUMMARY | 2024-12-05 20:53 | XMS_ITS | Encounter Summary ---
Author Organization [facility] Address [address] [place] [address] Care Team Providers Care Seam Stayer Name Role Phone Elsewhere, Pcp Primary Care Provider Unavailabl e Encounter Details Date Type Department Care Team (Late st Contact Info) Description 12/04/2024 Clinical Communication Department of Infusion Therapy in [address] [phone] Stiven Orlando, RMillaN. Social History Tobacco Use Types Packs/Day Years Used Date Smoking Tobacco: Former Cigarettes 1 4.4 0 11/25/1969 - 04/02/1974 Passive Smoke Exposure: Past Smokeless Tobacco: Never Comments: service ti me only Passive Exposure Comments:Dad When I was growing up & in the Service Alcohol Use Standard Drinks/Week Comments Yes 5 (1 standard drink = 0.6 oz pur e alcohol) [facility] Utilities Answer Date Recorded In the past 12 months has [facility] [employer], gas, oil, or water [employer] threatened to shut off services in your [...] your living situation today? I have a [facility] place to live 04/10/2024 Sex and Gender Information Value Date Recorded Sex Assigned at Male 03/26/2023 7:11 AM CDT Legal Sex Male 7:47 PM HEADER OPERATOR Gender Identity Male 08/12/2018 1:39 PM HEADER OPERATOR Sexual Orientation Straight 08/12/2018 1: 39 PM HEADER OPERATOR documented as of this encounter Miscellaneous Notes * Addendum Note - Stiven Orlando RMillaN. - 12/04/2024 1:33 PM CDTAddended by: STIVEN ORLANDO on: 12/04/2024 01:33 PM Modules accepted: Orders * Telephone Encounter - Stiven Orlando R.N. - 12/04/2024 1:14 PM CDT ----- Message from Slava Lees M.D. sent at 12/04/2024 12:54 PM CDT ----- Regarding: FW: Darbepoetin We will hold darbepoetin for hemoglobin more than 11 ----- Message ----- From: Stiven Orlando R.N. Sent: 11/27/2024 1:30 PM CDT To: Slava Lees M.D. Subject: Darbepoetin Gurpreet Randolph was here today for his darbepoetin injection. In the provider communication in the therapy plan it states Monitor hemoglobin at least once per week until maintenance dose has been established then periodically, as clinically indicated and iron studies prior to and periodically through out d arbepoetin therapy. Can you place parameters in the therapy plan when we should not administer the darbepoetin? His hemoglobin was 7.1 today. Thank you, Stiven RN [facility] documented in this encounter Plan of Treatment Upcoming Encounters Date Type Department Care Team (Late st Contact Info) Description 12/11/2024 1:20 PM CDT Appointment Department of Laboratory Medicine in [address] [phone] Slava Lees M.D. [address] [place] [address] 12/11/2024 2:30 PM CDT Infusion Department of Infusion Therapy in [address] [address] Slava Lees M.D. [address] [place] [phone] 12/18/2024 12:00 PM CDT Appointment Department of Laboratory Medicine in [address] [address] Slava Lees M.D. [address] [place] [phone] 12/25/2024 11:00 AM CDT Appointment Department of Laboratory Medicine in [address] [address] Slava Lees M.D. [address] [place] [phone] 12/25/2024 12:00 PM CDT Infusion Department of Infusion Therapy in [address] [address] Slava Lees M.D. [address] [place] [phone] 01/01/2025 11:10 AM CDT Appointment Department of Laboratory Medicine in [address] [address] Slava Lees M.D. [address] [place] [phone] 01/08/2025 1:30 PM CDT Appointment Department of Laboratory Medicine in [address] [address] Slava Lees M.D. [address] [place] [phone] 01/08/2025 2:30 PM CDT Infusion Department of Infusion Therapy in [address] [address] Slava Lees M.D. [address] [place] [phone] 01/15/2025 11:10 AM CDT Appointment Department of Laboratory Medicine in [address] [address] Slava Lees M.D. [address] [place] [phone] 01/22/2025 11:00 AM CDT Appointment Department of Laboratory Medicine in [address] [address] Slava Lees M.D. [address] [place] [phone] 01/22/2025 12:30 PM CDT Infusion Department of Infusion Therapy in [address] [address] Slava Lees M.D. [address] [place] [phone] 01/29/2025 11:10 AM CDT Appointment Department of Laboratory Medicine in [address] [address] Slava Lees M.D. [address] [place] [phone] 02/05/2025 1:30 PM CDT Appointment Department of Laboratory Medicine in [address] [address] Slava Lees M.D. [address] [place] [phone] 02/05/2025 2:30 PM CDT Infusion Department of Infusion Therapy in [address] [place] [address] Slava Lees M.D. [address] [place] [phone] 02/12/2025 11:10 AM CDT Appointment Department of Laboratory Medicine in [address] [place] [address] Slava Lees M.D. [address] [place] [phone] 02/26/2025 11:10 AM CDT Appointment Department of Laboratory Medicine in [address] [place] [address] Slava Lees M.D. 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
--- OUTSIDE RECORDS SUMMARY | 2024-12-05 20:53 | XMS_ITS | Encounter Summary ---
Author Organization [facility] Address [address] [place] [address] Care Team Providers Care Event Technician Name Role Phone Elsewhere, Pcp Primary Care Provider Unavailabl e Reason for Visit * Reason Comments Injections * Episode Based Medications (Routine) - Authorized Specialty Diagnoses / Procedures Referred By Contiman t Referred To Contact Diagnoses Aplasia Red Cell (HCC) Slava Lees M.D. [address] [place] [phone] Phone: tel: fax: Slava Lees M.D. 200 [place] [address] Phone: tel: fax: Referral ID Status Reason Start Date Expiration Date V isits Requested Visits Authorized [id number] Authorized 11/13/2024 11/13/2026 99 99 Encounter Details Date Type Department Care Team (Late st Contact Info) Description 11/27/2024 12:30 PM CDT Infusion Department of Infusion Therapy in [address] [phone] Slava Lees M.D. [address] [place] [phone] Aplasia Red Cell (HCC) (Primary Dx) Social History Tobacco Use Types Packs/Day Years Used Date Smoking Tobacco: Former Cigarettes 1 4.4 0 11/25/1969 - 04/02/1974 Passive Smoke Exposure: Past Smokeless Tobacco: Never Comments: service ti me only Passive Exposure Comments:Dad When I was growing up & in the Service Alcohol Use Standard Drinks/Week Comments Yes 5 (1 standard drink = 0.6 oz pur e alcohol) [facility] Utilities Answer Date Recorded In the past 12 months has th e electric, gas, oil, or water company [...] your living situation today? I have a [facility] place to live 04/10/2024 Sex and Gender Information Value Date Recorded Sex Assigned at Male 03/26/2023 7:11 AM CDT Legal Sex Male 7:47 PM CAREGIVER ASSISTED LIVING Gender Identity Male 08/12/2018 1:39 PM CAREGIVER ASSISTED LIVING Sexual Orientation Straight 08/12/2018 1 :39 PM CAREGIVER ASSISTED LIVING documented as of this encounter Last Filed Vital Signs Vital Sign Reading Time Taken Comments Blood Pressure 126/66 11/27/2024 1:19 PM CDT Pulse 78 11/27/2024 1:19 PM CDT Temperature - - Respiratory Rate - - Oxygen Saturation - - Inhaled Oxygen Concentration - - Weight - - Height - - Body Mass Index - - documented in this encounter Plan of Treatment Upcoming Encounters Date Type Department Care Team (Late st Contact Info) Description 12/11/2024 1:20 PM CDT Appointment Department of Laboratory Medicine in [address] [phone] Slava Lees M.D. 200 [place] [address] 12/11/2024 2:30 PM CDT Infusion Department of Infusion Therapy in [address] [phone] Slava Lees M.D. [address] [place] [phone] 12/18/2024 12:00 PM CDT Appointment Department of Laboratory Medicine in [address] [phone] Slava Lees M.D. [address] [place] [phone] 12/25/2024 11:00 AM CDT Appointment Department of Laboratory Medicine in [address] [address] Slava Lees M.D. [address] [place] [phone] 12/25/2024 12:00 PM CDT Infusion Department of Infusion Therapy in [address] [address] Slava Lees M.D. [address] [place] [phone] 01/01/2025 11:10 AM CDT Appointment Department of Laboratory Medicine in [address] [phone] Slava Lees M.D. [address] [place] [phone] 01/08/2025 1:30 PM CDT Appointment Department of Laboratory Medicine in [address] [phone] Slava Lees M.D. [address] [place] [phone] 01/08/2025 2:30 PM CDT Infusion Department of Infusion Therapy in [address] [address] Slava Lees M.D. [address] [place] [phone] 01/15/2025 11:10 AM CDT Appointment Department of Laboratory Medicine in [address] [address] Slava Lees M.D. [address] [place] [phone] 01/22/2025 11:00 AM CDT Appointment Department of Laboratory Medicine in [address] [address] Slava Lees M.D. [address] [place] [phone] 01/22/2025 12:30 PM CDT Infusion Department of Infusion Therapy in [address] [address] Slava Lees M.D. [address] [place] [phone] 01/29/2025 11:10 AM CDT Appointment Department of Laboratory Medicine in [address] [address] Slava eLes M.D. [address] [place] [phone] 02/05/2025 1:30 PM CDT Appointment Department of Laboratory Medicine in [address] [address] Slava Lees M.D. [address] [place] [phone] 02/05/2025 2:30 PM CDT Infusion Department of Infusion Therapy in [address] [address] Slava Lees M.D. 200 [place] [phone] 02/12/2025 11:10 AM CDT Appointment Department of Laboratory Medicine in [address] [address] Slava Lees M.D. 200 [place] [phone] 02/26/2025 11:10 AM CDT Appointment Department of Laboratory Medicine in [address] [address] Slava Lees M.D. [address] [place] [phone] documented as of this encounter Visit Diagnoses Diagnosis Aplasia Red Cell (HCC)- Primary documented in this encounter Administered Medications Inactive Administered Medications - up to 3 most recent administrations Medication Order MAR Action Action Date Dose Rate Site darbepoetin eulalia-polysorbate injection 500 mcg (Aranesp) 500 mcg, subcutaneous, Once, On Maya 11/27/24 at 1315, For 1 dose, Indications: anemia, associated with MDSIndications:anemia,as sociated with MDS Given 11/27/2024 1:06 PM CDT 500 mcg Right Upper Arm (Back) documented in this encounter Care Teams Event Technician Relationship Specialty Start Date End Date Elsewhere, Pcp PCP - General Internal Medicine 07/16/23 documented as of this encounter
--- OUTSIDE RECORDS SUMMARY | 2024-12-05 20:53 | XMS_ITS | Encounter Summary ---
Author Organization [facility] Address 200 [place] [address] Care Team Providers Care Client Technical Specialist Name Role Phone Elsewhere, Pcp Primary Care Provider Unavailabl e Encounter Details Date Type Department Care Team (Latest Contact Info) Description 11/13/2024 11:05 AM CDT - 11/13/2024 11:59 PM CDT Hospital Encounter Department of Laboratory Medicine in [address] [phone] Slava Lees M.D. 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 I have a [facility] place to live 04/10/2024 Sex and Gender Information Value Date Recorded Sex Assigned at Male 03/26/2023 7:11 AM CDT Legal Sex Male 7:47 PM CENTRAL SUPPLY NURSE Gender Identity Male 08/12/2018 1:39 PM CENTRAL SUPPLY NURSE Sexual Orientation Straight 08/12/2018 1: 39 PM CENTRAL SUPPLY NURSE documented as of this encounter Medications at [...] CDT Appointment Department of Laboratory Medicine in [address] [phone] Slava Lees M.D. [address] [place] [phone] 12/11/2024 2:30 PM CDT Infusion Department of Infusion Therapy in [address] [address] Slava Lees M.D. [address] [place] [phone] 12/18/2024 12:00 PM CDT Appointment Department of Laboratory Medicine in [address] [address] Slava Lees M.D. [address] [place] [phone] 12/25/2024 11:00 AM CDT Appointment Department of Laboratory Medicine in [address] [address] Slava Lees M.D. [address] [place] [phone] 12/25/2024 12:00 PM CDT Infusion Department of Infusion Therapy in [address] [address] Slava Lees M.D. [address] [place] [phone] 01/01/2025 11:10 AM CDT Appointment Department of Laboratory Medicine in [address] [address] Slava Lees M.D. [address] [place] [phone] 01/08/2025 1:30 PM CDT Appointment Department of Laboratory Medicine in [address] [address] Slava Lees M.D. [address] [place] [phone] 01/08/2025 2:30 PM CDT Infusion Department of Infusion Therapy in [address] [address] Slava Lees M.D. [address] [place] [phone] 01/15/2025 11:10 AM CDT Appointment Department of Laboratory Medicine in [address] [address] Slava Lees M.D. [address] [place] [phone] 01/22/2025 11:00 AM CDT Appointment Department of Laboratory Medicine in [address] [address] Slava Lees M.D. [address] [place] [phone] 01/22/2025 12:30 PM CDT Infusion Department of Infusion Therapy in [address] [address] Slava Lees M.D. [address] [place] [phone] 01/29/2025 11:10 AM CDT Appointment Department of Laboratory Medicine in [address] [address] Slava Lees M.D. [address] [place] [phone] 02/05/2025 1:30 PM CDT Appointment Department of Laboratory Medicine in [address] [address] Slava Lees M.D. [address] [place] [phone] 02/05/2025 2:30 PM CDT Infusion Department of Infusion Therapy in [address] [phone] Slava Lees M.D. [address] [place] [phone] 02/12/2025 11:10 AM CDT Appointment Department of Laboratory Medicine in [address] [place] [phone] Slava Lees M.D. [address] [place] [address] 02/26/2025 11:10 AM CDT Appointment Department of Laboratory Medicine in [address] [phone] Slava Lees M.D. 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) Aplasia Red Cell (HCC) documented in this encounter Results * (ABNORMAL) CBC with Differential, Blood (11/13/2024 11:12 AM CDT) Hemoglobin 7.8(L) 13.2 - 16.6 g/dL 11/13/2024 11:20 AM CDT [facility] Hematocrit 24.0(L) 38.3 - 48.6 % 11/13/2024 11:20 AM CDT [facility] Erythrocytes 2.26(L) 4.35 - 5.65 x10(12)/L 11/13/2024 11:20 AM CDT [facility] MCV 106.2(H) 78.2 - 97.9 fL 11/13/2024 11:20 AM CDT [facility] RBC Distrib Width 18.0(H) 11.8 - 14.5 % 11/13/2024 11:20 AM CDT [facility] Platelet Count 204 135 - 317 x10(9)/L 11/13/2024 11:20 AM CDT [facility] Leukocytes 4.1 3.4 - 9.6 x10(9)/L 11/13/2024 11:20 AM CDT [facility] Neutrophils 2.98 1.56 - 6.45 x10(9)/L 11/13/2024 11:20 AM CDT [facility] Lymphocytes 0.93(L) 0.95 - 3.07 x10(9)/L 11/13/2024 11:20 AM CDT [facility] Monocytes 0.10(L) 0.26 - 0.81 x10(9)/L 11/13/2024 11:20 AM CDT [facility] Eosinophils 0.05 0.03 - 0.48 x10(9)/L 11/13/2024 11:20 AM CDT [facility] Basophils <0.04 0.01 - 0.08 x10(9)/L 11/13/2024 11:20 AM CDT [facility] Blood (Blood, Venous) 11/13/2024 11:12 AM CDT 11/13/2024 11:14 AM CDT us Slava Lees M.D. LAB BLOOD ADD-ON Final Resul t [facility] [address] [place] [address], [facility] CNFL 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
--- OUTSIDE RECORDS SUMMARY | 2024-12-05 20:53 | XMS_ITS | Clinical Summary ---
Author Organization [facility] Address [address] [place] [address] Care Team Providers Care Strap Cutter Name Role Phone Pcp, No Primary Care Provider Unavailabl e Allergies Active Allergy Reactions Criticality Noted Date Comments Penicillins Rash 11/04/2010 Medications aspirin 81 mg tablet Take 1 tablet by mouth once daily with a meal. 0 1 Active cycloSPORINE modified (NEORAL; GENGRAF) 50 mg capsule 150 mg. 125 in the am and 125 in the pm Active tamsulosin 0.4 mg capsuleIndication s:Frequent urination,BPH without urinary obstruction Take 1 Capsule (0.4 mg) by mouth once daily after a meal. 30 Capsule 11 4 Active lisinopriL (PRINIVIL; ZESTRIL) 10 mg tabletIndications :Primary hypertension Take 1 Tablet (10 mg) by mouth once daily. 30 Tablet 5 4 Active Active Problems Problem Noted Date Diagnosed Date Stage 3b chronic kidney disease 07/23/2024 BPH without urinary obstruction 07/23/2024 Frequent urination 07/23/2024 Anemia of chronic renal failure 11/21/2022 Chronic acquired pure red cell aplasia 5 Myelofibrosis 05/20/2014 Immunizations Immunization Administration Dates Next Due Tdap 01/02/2019 Zoster (Shingrix-RZV, recombinant) 09/26/2023, Family History Medical History Relation Name Comments Genetic Other cancer-dad, irr egular heart beat-mom, diabetes-grandmother Relation Name Status Comments Other Social History Tobacco Use Types Packs/Day Years Used Date Smoking Tobacco: Former Cigarettes 0.5 4 1 970 - 1973 Smokeless Tobacco: Never Tobacco Cessation:Counseling Given: Not Answered Comments:1973 Alcohol Use Standard Drinks/Week Comments Not Asked 0 (1 standard drink = 0.6 oz pur e alcohol) PHQ-2 Answer Date Recorded PHQ-2 TOTAL SCORE 0 07/23/2024 Social Connections Answer Date Recorded Do you often feel lonely or isolated from those around you? 0 07/23/2024 Financial Resource Strain Answer Date R ecorded Difficulty of Paying Living Expenses 3 07/23/2024 Difficulty of Paying Living Expenses Not on file 07/23/2024 Food Insecurity Answer Date Recorded Do you worry your food will run out before you are able to buy more? 1 07/23/2024 Transportation Needs Answer Date Record ed Does lack of transportation keep you from medica l appointments? 1 07/23/2024 Does lack of transportation keep you from work, meetings or getting things that you need? 1 07/23/2024 Housing Stability Answer Date Recorded What is your housing situation today? 1 07/23/2024 Utilities Answer Date Recorded Do you have trouble paying f or utilities (for example, heat, electricity, water, phone)? 1 07/23/2024 Sex and Gender Information Value Date Recorded Sex Assigned at Not on file Legal Sex Male 5:44 AM PROJECT DEVELOPMENT MANAGER Gender Identity Not on file Sexual Orientation Not on file Obstetrics History Last Filed Vital Signs Vital Sign Reading Time Taken Comments Blood Pressure 126/72 08/21/2024 8:43 AM PROJECT DEVELOPMENT MANAGER Pulse 68 08/21/2024 8:43 AM PROJECT DEVELOPMENT MANAGER Temperature - - Respiratory Rate - - Oxygen Saturation - - Inhaled Oxygen Concentration - - Weight 68.7 kg (151 lb 6.4 oz) 07/23/2024 2:23 P M PROJECT DEVELOPMENT MANAGER Height 163.6 cm (5' 4.41) 07/23/2024 2:23 PM CS T Body Mass Index 25.66 07/23/2024 2:23 PM PROJECT DEVELOPMENT MANAGER Plan of Treatment Health Maintenance Due Date Last Done Comments Pneumococcal series for age 50+ (1 of 1 - PCV) 2000 RSV vaccine for adults or pr egnancy (1 - Risk 60-74 years 1-dose series) 2010 AAA screening age 65-74 2015 COVID-19 vaccine series ( season) 2024 04/20/2021, 01/02/2021, 12/05/2020 Influenza Vaccine (Season Ended) 2025 BMI (ht and wt on same day) for age 18+ 07/23/2025 07/23/2024 Depression screening for age 12+ 07/23/2025 07/23/20 Medicare Wellness for age 65+ 07/24/2025 07/23/2024 Fecal testing sDNA-FIT ([place] guard) for age 45-75 07/30/2027 07/30/2024 Tetanus booster 01/02/2029 01/02/2019 Lipids for age 45-75 08/05/2029 08/05/2024 Tdap Completed 01/02/2019 Zoster (shingles) series for age 50+ Completed 08/29, 06/14/2023 Hepatitis C screening for age 18-79 Completed 08/05 Procedures Procedure Name Priority Date/Time Associated Diagnosis Comments ANTI HCV Routine 08/05/2024 8:44 AM PROJECT DEVELOPMENT MANAGER Need for hepatitis C screening test LIPID PANEL W REFLEX MEASURED LDL Routine 08/05/2024 8:44 AM PROJECT DEVELOPMENT MANAGER Screening for cardiovascular condition SDNA-FIT EXTERNAL (COLOGUARD) Routine 07/30/2024 9:15 PM PROJECT DEVELOPMENT MANAGER Screening for colon cancer from Last 3 Months or Most Recently Relevant to Health Maintenance Results * LIPID PANEL W REFLEX MEASURED LDL [[id number]] (08/05/2024 8:44 AM PROJECT DEVELOPMENT MANAGER) CHOLESTEROL, TOTAL 162 <200 mg/dL [facility] HDL CHOLESTEROL 51 > OR = 40 mg/dL [facility] TRIGLYCERIDES 98 <150 mg/dL [facility] LDL-CHOLESTEROL 92 mg/dL (calc) [facility] Comment: Reference range: <100 Desirable range <100 mg/dL for primary prevention; <70 mg/dL for patients with CHD or diabetic patients with > or = 2 CHD risk factors. LDL-C is now calculated using the Zaki-Lieberman calculation, which is a validated novel method providing better accuracy than the Friedewald equation in the estimation of LDL-C. Zaki SS et al. JASPAL. 2013;310(19): 4650-0152 (http://[employer].Edkimo/faq/JXW539) CHOL/HDLC RATIO 3.2 <5.0 (calc) [facility] NON HDL CHOLESTEROL 111 <130 mg/dL (calc) [facility]illiana[facility]ora [facility] Comment: For patients with diabetes plus 1 major ASCVD risk factor, treating to a non-HDL-C goal of <100 mg/dL (LDL-C of <70 mg/dL) is considered a therapeutic option. Blood BLOOD SPECIMEN / Unknown 08/05/2024 8:44 AM PROJECT DEVELOPMENT MANAGER 08/05/2024 8:51 AM PROJECT DEVELOPMENT MANAGER us Ang Mcgarry MD CHEMISTRY Final Resul t Performing Organization Address [facility] de Phone Number [employer] [address] [phone], [facility] [address] * ANTI HCV (08/05/2024 8:44 AM PROJECT DEVELOPMENT MANAGER) HEPATITIS C ANTIBODY NON-REACTI VE NON-REACT MATTHEW [facility] Comment: HCV antibody was non-reactive. There is no laboratory evidence of HCV infection. In most cases, no further action is required. However, if recent HCV exposure is suspected, a test for HCV RNA (test code 35176) is suggested. For additional information please refer to http://education.COM DEV/faq/LFJ60q6 (This link is being provided for informational/ educational purposes only.) Blood BLOOD SPECIMEN / Unknown 08/05/2024 8:44 AM PROJECT DEVELOPMENT MANAGER 08/05/2024 8:51 AM PROJECT DEVELOPMENT MANAGER us Ang Mcgarry MD SEND OUTS Final Resul t Performing Organization Address [facility] Co de Phone Number [employer] [address] [address] [place] [address], [facility] [address] [place] [address] * SDNA-FIT EXTERNAL (COLOGUARD) (07/30/2024 9:15 PM PROJECT DEVELOPMENT MANAGER) NONINV COLON CA DNA+OCC BLD SCRN STL-IMP Negative Negative 08/07/2024 5:44 PM PROJECT DEVELOPMENT MANAGER [employer] (CLIA #:[id number]) Comment: NEGATIVE TEST RESULT. A negative Cologuard result indicates a low likelihood that a colorectal cancer (CRC) or advanced adenoma (adenomatous polyps with more advanced pre-malignant features) is present. The chance that a person with a negative Cologuard test has a colorectal cancer is less than 1 in 1500 (negative predictive value >99.9%) or has an advanced adenoma is less than 5.3% (negative predictive value 94.7%). These data are based on a prospective cross-sectional study of 10,000 individuals at average risk for colorectal cancer who were screened with both Cologuard and colonoscopy. (Lilli García. et al, N Engl J Med 2014;370(14):8932-6633) The normal value (reference range) for this assay is negative. COLOGUARD RE-SCREENING RECOMMENDATION: Periodic colorectal cancer screening is an important part of preventive healthcare for asymptomatic individuals at average risk for colorectal cancer. Following a negative Cologuard result, the [place] [employer] and U.S. Multi-Society Task Force screening guidelines recommend a Cologuard re-screening interval of 3 years. References: [place] [employer] Guideline for Colorectal Cancer Screening: https://www.cancer.org/cancer/uytrq-rsglyp-hgyjxv/cnehkthvy-bqncaapyy-zejthkt/ac s-rec ommendations.html.; Dre ACUÑA, Agatha ROGERS, Capo GonzalezK, Colorectal Cancer Screening: Recommendations for Physicians and Patients from the U.S. Multi-Society Task Force on Colorectal Cancer Screening , Am J Gastroenterology 2017; 112:4597-1867. TEST DESCRIPTION: Composite algorithmic analysis of stool DNA-biomarkers with hemoglobin immunoassay. Quantitative values of individual biomarkers are not reportable and are not associated with individual biomarker result reference ranges. Cologuard is intended for colorectal cancer screening of adults of either sex, 45 years or older, who are at average-risk for colorectal cancer (CRC). Cologuard has been approved for use by the U.S. FDA. The performance of Cologuard was established in a cross sectional study of average-risk adults aged 50-84. Cologuard performance in patients ages 45 to 49 years was estimated by sub-group analysis of near-age groups. Colonoscopies performed for a positive result may find as the most clinically significant lesion: colorectal cancer [4.0%], advanced adenoma (including sessile serrated polyps greater than or equal to 1cm diameter) [20%] or non- advanced adenoma [31%]; or no colorectal neoplasia [45%]. These estimates are derived from a prospective cross-sectional screening study of 10,000 individuals at average risk for colorectal cancer who were screened with both Cologuard and colonoscopy. (Lilli Dennis et al, N Engl J Med 2014;370(14):3613-4423.) Cologuard may produce a false negative or false positive result (no colorectal cancer or precancerous polyp present at colonoscopy follow up). A negative Cologuard test result does not guarantee the absence of CRC or advanced adenoma (pre-cancer). The current Cologuard screening interval is every 3 years. ([place] [employer] and U.S. Multi-Society Task Force). Cologuard performance data in a 10,000 patient pivotal study using colonoscopy as the reference method can be accessed at the following location: www.[employer]/results. Additional description of the Cologuard test process, warnings and precautions can be found at www.[employer]ures[employer]uard.com. Stool specimen (specimen) (Rectum) 07/30/2024 9:15 PM PROJECT DEVELOPMENT MANAGER 08/01/2024 9:45 AM PROJECT DEVELOPMENT MANAGER us Ang Mcgarry MD URINE Final Resul t [employer] (CLIA #:[id number]) [place] [address] [place] [address], from Last 3 Months or Most Recently Relevant to Health Maintenance Insurance [employer] [place]MP MEDICARE PB ONLY MEDICARE PART A HB ONLY MEDICARE PART B HB ONLY Care Teams Strap Cutter Relationship Specialty Start Date End Date Pcp, No . PCP - General 11/04/10
--- OUTSIDE RECORDS SUMMARY | 2024-12-05 20:54 | XMS_ITS | Encounter Summary ---
Author Organization [facility] Address [address] [place] [address] Care Team Providers Care Control Clerk Name Role Phone Elsewhere, Pcp Primary Care Provider Unavailabl e Encounter Details Date Type Department Care Team (Late st Contact Info) Description 11/24/2024 Orders Only Division of Hematology in [place], [place] [address] [place] [address] Slava Lees M.D. [address] [place] [address] Social History Tobacco Use Types Packs/Day Years Used Date Smoking Tobacco: Former Cigarettes 1 4.4 0 11/25/1969 - 04/02/1974 Passive Smoke Exposure: Past Smokeless Tobacco: Never Comments: service ti me only Passive Exposure Comments:Dad When I was growing up & in the Service Alcohol Use Standard Drinks/Week Comments Yes 5 (1 standard drink = 0.6 oz pur e alcohol) [facility] [place] Utilities Answer Date Recorded In the past 12 months has e prollie, gas, oil, or water [employer] threatened to shut off services in your [...] your living situation today? I have [facility] place to live 04/10/2024 Sex and Gender Information Value Date Recorded Sex Assigned at Male 03/26/2023 7:11 AM CDT Legal Sex Male 7:47 PM [employer] Gender Identity Male 08/12/2018 1:39 PM [employer] Sexual Orientation Straight 08/12/2018 1: 39 PM [employer] documented as of this encounter Plan of Treatment Upcoming Encounters Date Type Department Care Team (Late st Contact Info) Description 12/11/2024 1:20 PM CDT Appointment Department of Laboratory Medicine in [address] [phone] Slava Lees M.D. [address] [place] [phone] 12/11/2024 2:30 PM CDT Infusion Department of Infusion Therapy in [address] [phone] Slava Lees M.D. [address] [place] [phone] 12/18/2024 12:00 PM CDT Appointment Department of Laboratory Medicine in [address] [phone] Slava Lees M.D. [address] [place] [phone] 12/25/2024 11:00 AM CDT Appointment Department of Laboratory Medicine in [address] [phone] Slava Lees M.D. [address] [place] [phone] 12/25/2024 12:00 PM CDT Infusion Department of Infusion Therapy in [address] [phone] Slava Lees M.D. [address] [place] [phone] 01/01/2025 11:10 AM CDT Appointment Department of Laboratory Medicine in [address] [phone] Slava Lees M.D. [address] [place] [phone] 01/08/2025 1:30 PM CDT Appointment Department of Laboratory Medicine in [address] [phone] Slava Lees M.D. [address] [place] [phone] 01/08/2025 2:30 PM CDT Infusion Department of Infusion Therapy in [address] [address] Slava Lees M.D. [address] [place] [phone] 01/15/2025 11:10 AM CDT Appointment Department of Laboratory Medicine in [address] [phone] Slava Lees M.D. [address] [place] [phone] 01/22/2025 11:00 AM CDT Appointment Department of Laboratory Medicine in [address] [address] Slava Lees M.D. [address] [place] [phone] 01/22/2025 12:30 PM CDT Infusion Department of Infusion Therapy in [address] [phone] Slava Lees M.D. [address] [place] [phone] 01/29/2025 11:10 AM CDT Appointment Department of Laboratory Medicine in [address] [phone] Slava Lees M.D. [address] [place] [phone] 02/05/2025 1:30 PM CDT Appointment Department of Laboratory Medicine in [address] [phone] Slava Lees M.D. [address] [place] [phone] 02/05/2025 2:30 PM CDT Infusion Department of Infusion Therapy in [address] [phone] Slava Lees M.D. [address] [place] [phone] 02/12/2025 11:10 AM CDT Appointment Department of Laboratory Medicine in [address] [phone] Slava Lees M.D. [address] [place] [phone] 02/26/2025 11:10 AM CDT Appointment Department of Laboratory Medicine in [address] [phone] Slava Lees M.D. [address] [place] [phone] documented as of this encounter Visit Diagnoses Not on filedocumented in this encounter Care Teams Control Clerk Relationship Specialty Start Date End Date Elsewhere, Pcp PCP - General Internal Medicine 07/16/23 documented as of this encounter
--- OUTSIDE RECORDS SUMMARY | 2024-12-05 20:54 | XMS_ITS | Encounter Summary ---
Author Organization [facility] Address [address] [place] [id number] Care Team Providers Care Garnishment Specialist Name Role Phone Elsewhere, Pcp Primary Care Provider Unavailabl e Reason for Referral * Outpatient (Routine) - Authorized Specialty Diagnoses / Procedures Referred By Titus t Referred To Contact Hematology Oncology Slava Lees M.D. [address] [place] [address] Phone: tel: fax: [facility] Referral ID Status Reason Start Date Expiration Date V isits Requested Visits Authorized [id number] Authorized 11/13/2024 05/15/2026 1 1 Reason for Visit * Outpatient (Routine) - Closed Specialty Diagnoses / Procedures Referred By Contiman t Referred To Contact Hematology Oncology Slava Lees M.D. [address] [place] [address] Phone: tel: fax: [facility] Referral ID Status Reason Start Date Expiration Date Visits Re quested Visits Authorized [id number] Closed 10/16/2024 04/17/2026 1 1 Encounter Details Date Type Department Care Team (Late st Contact Info) Description 11/13/2024 1:00 PM CDT Office Visit Division of Hematology in [place], [place] [address] [place] [phone] Slava Lees M.D. [address] [place] [phone] Aplasia Red Cell (HCC) (Primary Dx) Social [...] drink = 0.6 oz pur e alcohol) [facility] Utilities Answer Date Recorded In the past 12 months has e electric, gas, oil, or water [employer] threatened to shut off services in your [...] your living situation today? I have a [facility] place to live 04/10/2024 Sex and Gender Information Value Date Recorded Sex Assigned at Male 03/26/2023 7:11 AM CDT Legal Sex Male 7:47 PM QUALITY REVIEW SPECIALIST Gender Identity Male 08/12/2018 1:39 PM QUALITY REVIEW SPECIALIST Sexual Orientation Straight 08/12/2018 1: 39 PM QUALITY REVIEW SPECIALIST documented as of this encounter Last Filed Vital Signs Vital Sign Reading Time Taken Comments Blood Pressure - - Pulse - - Temperature - - Respiratory Rate - - Oxygen Saturation - - Inhaled Oxygen Concentration - - Weight 70.7 kg (155 lb 13.8 oz) 025 12:44 PM CDT Height 166.5 cm (5' 5.55) 11/13/2024 1 2:44 PM CDT Body Mass Index 25.5 11/13/2024 12:44 PM CDT documented in this encounter Progress Notes * Slava Lees M.D. - 11/13/2024 1:00 PM CDT SUBJECTIVE Referring Provider: Current Providers as of 11/13/2024 PCP: Ernie, Pcp Care Team Provider: Slava Lees M.D. Encounter Provider: Slava Lees M.D., starting on SunNov 13, 2024 12:00 AM Referring Provider: Slava Lees M.D., starting on SunNov 13, 2024 12:00 AM Attending Provider: Slava Lees M.D., starting on SunOct 20, 2024 12:27 PM (Active) Periodicals Library Assistant Physician: Slava Lees M.D., starting on SunNov 13, 2024 12:20 PM (Active) Patient Name: Gurpreet Catalan CHIEF COMPLAINT/REASON FOR VISIT 1. Followup of transfusion-dependent anemia. Last transfusion January 2016, and recent transfusion September 15, 2024 maybe failing cyclosporine treated 2. 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 Has been on cyclosporine since August 2015, last dose of cyclosporine around July 16, 2018 4. Normal cytogenetics. 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 All molecular tests, including MPL, CALR, and JAK2, were negative. Chromosomes were normal. 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 Whether this has any diagnostic and therapeutic indication is not clear because this mutation was described also in normal individuals as well or preceding hematological malignancy. Rule out relapse of the same disease (chronic myeloid neoplasm /rule out aplastic anemia, though the bone marrow biopsy is different (hypercellular) Transfusion-dependent anemia with hypercellular marrow, being managed as aplastic anemia based on his previous response to treatment Failure of cyclosporine treatment without additional bone marrow biopsy evidence for the disease. 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 Appreciate the input that we get from our CLL expert HISTORY OF PRESENT ILLNESS He has been coming to see me since April 2014. We have tried vitamin B12 supplement because of a profoundly low B12 level, but he failed to respond to that treatment. We did a number of bone marrow biopsies. The bone marrow biopsy is only hypercellular without significant evidence for disease and the cytogenetics were normal. MDS FISH was also negative. Mr. Catalan was transfusion- dependent, requiring pretty much 1 or 2 units of packed RBC every week. Because of normal platelet count, and transfusion dependence, we started him on lenalidomide on November 06, 2014. 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 He received a total of six cycles of lenalidomide until the middle of March 2015. The seventh cycle was not intimated because of profound neutropenia and methicillin-resistant Staph aureus skin infection in the middle of March. However, the sensitivity pattern showed sensitivity to trimethoprim sulfamethoxazole, and the patient is also responding with significant healing of the skin lesions During his visit in April 2015, we tried to treat him with supplemental testosterone. Unfortunately, however, the insurance company refused, and he did not receive androgens. However, he has beengetting a transfusion every week for symptomatic anemia, hemoglobin less than 7. In addition, he developed infection over the thigh, and it has improved completely with antibiotics. Mr. Catalan was started with cyclosporine on August 27, 2014. At the beginning, it was 300 in the morning, 400 in the evening. However, his transfusions had not decreased at that time, and the cyclosporine level was very high, but he did not experience any side effects. Later on his creatinine increased, and the cyclosporine level was also high, and we decreased the dose to 300 mg twice a day on December 27, 2015 He became transfusion independent starting from January 2016. He also developed some side effects including hypertension, abnormal kidney function, and electrolyte abdomen abnormalities. All of them were attributed to cyclosporine and managed accordingly. He also stopped taking amlodipine as his blood pressure pretty much normal when Saturnino decrease the dose of cyclosporine. For the last 3 months has been taking 50 mg of cyclosporine twice a day. After tapering down cyclosporine so slowly he stopped taking it on July 16, 2018. Today August 15, 2018 he is here with his . Since his visit here he did not have any new significant systemic symptoms. Have been he has been doing blood test every month. All the blood tests are within normal limit. His kidney function is a little bit impaired most likely secondary to cyclosporine. Hopeful ly this will improve with time. December 20, 2018. He is here again with his . The last time he has been on cyclosporine was in June 2018 despite discontinuation of cyclosporine his hemoglobin is holding. He denies any significant systemic symptoms. Has been doing blood test every other month. June 20, 2019. He is here with his . Did not have any new significant systemic symptoms since last visit with me. And his blood counts remain the same. June 09, 2020. He is here again his . Since his last visit last year he was evaluated by [facility] [place] physician for all health maintenance evaluations. He has no symptom at all with regardto his underlying pure red cell aplasia. 05/16/2021. He is here with his . Since his last visit he did not have any new significant systemic symptoms. He is being followed by his primary physician. Following were COVID showed gersonid have a blood test all of them remain the same. He tolerated the 3 shots of COVID-19 without anysignificant side effects. Since his blood test is very stable I am planning to decrease the interval of visit with me to every other year. Tentatively he is going to come in 2022. September 07, 2022. Mr. Catalan is here with his . I have been following him since 2013. Before twoor three weeks ago he began to experience significant weakness tiredness and fatigue. A blood test showed profound anemia with acceptable white blood cell count and platelet count. Because of that westarted monitoring his blood counts and did a bone marrow biopsy. The bone marrow biopsy was done on August 16, 2022. It is hypercellular without any definitive evidence or morphological evidence for specific disease. And it is similar to the one he had at the beginning in 2013. I tried many treatments including lenalidomide danazol without any success. However a bone marrow biopsy in 2014 showed significant hypoplasia of the red blood cell line age. It was hypercellular though. Currently the bone marrow biopsy showed hypercellular marrow with predominance of erythroid lineage. Other than significant fatigue no other systemic symptoms. Was restarted with cyclosporine August 2022 October 10, 2022. He is here again with his . Since he has started taking cyclosporine his hemoglobin is holding. He is not requiring transfusion. As expected while he is on cyclosporine has some kidney impairment. However his energy level is much better while he is on cyclosporine. He is not having any active bleeding from any place. His shortness of breath is improving. He is not having any significant side effects from cyclosporine. He was having some abdominal pain that is improving. We have seen some deterioration in his kidney function clearly attributed to cyclosporine. This happened also during his previous treatment with cyclosporine. We have been tolerating serum creatinine up to 2.9. The latest maximum is 1.84. November 21, 2022 and he is here with his . Since his last visit he has been on cyclosporine 200 mg twice a day. He is not having any significant systemic symptom. He is not feeling the same symptoms that has been experiencing in July with significant weakness shortness of breath. However his hemoglobin has not increased significantly its remains around eight. His kidney function is around two. He told me that has multiple nocturia is. We need to exclude possibility of BPH. He has never been to his primary care physician for a long time. I am planning to check also his EPO level. He might have other reason for his lack of response to cyclosporine as we are expecting because of his previous response to the same. January 24, 2023. He is here with his . He did not have any new significant systemic symptoms sincehis last visit. He has been on 200 mg of cyclosporine twice a day. His last cyclosporine level was mid 200s. His blood count has improved significantly today hemoglobin 11.8 acceptable white blood cell count differential and platelet count. At home his blood pressure pretty much in the normal range. March 30, 2023. Again he is here with his . He is not have significant systemic symptoms. He was having blood test every other week and all of them are in the acceptable range with hemoglobin more than 10 acceptable platelet count and white blood cell count. His kidney function is worsening today 1.9. He is on 150 mg of cyclosporine twice a day. Though the cyclosporine level is in the acceptable range it may be okay to decrease the dose of cyclosporine to 125 mg twice a day mainly to protect the kidneys July 18, 2023. Again he is here with his . He has no systemic symptoms share with us. She is tolerating cyclosporine 125 mg twice a day which is a very low dose. His kidney function remain the same. Actually his kidney function is the same as it has been before the re-initiation of cyclosporine. I believe the elevated creatinine is the result of cyclosporine she received the 1st treatment with cyclosporine in 2018 or 2018. He did have also a visit with his primary care physician recently. October 12, 2023. Again he is here with his . He is taking 125 mg of cyclosporine twice a day.He has not telling me any side effects related to this medication. His blood counts are also in theacceptable range. He is monitoring his blood pressure and remained also in the normal range. Is followed by his primary care physician for all other health maintenance evaluations. April 15, 2024. He is here with his . He is the same dose of cyclosporine 125 mg twice a day. It seems that he is tolerating without any significant side effects. His creatinine is around 2. This has been going on for the last 2-3 years. He wake up 3-4 times per night to pee. Will discuss withhis primary care physician about his prostate evaluation. If there is no significant BPH, we may need to decrease the dose of cyclosporine 200 mg twice a day. October 16, 2024. He is here again with his . While he is on cyclosporine 125 mg twice a day, we noticed a drop in his hemoglobin starting from July 11, 2024. At that time we made the blood test to be done every four weeks. And despite continuing cyclosporine his hemoglobin dropped and shebecome symptomatic two weeks ago when his hemoglobin dropped to 7.4. And we decided to do a bone marrow biopsy failure the bone marrow biopsy was done on September 16, 2024. Though there are some features of still myeloid malignancy with hypercellular marrow, but the prominent finding is 10-20% monotypic B-cell infiltrates suggesting chronic lymphocytic leukemia. Karyotyping pretty much normal with monosomy Y, and next generation sequencing showed only DNMT3A most likely it is age related. I think we need to start looking his transfusion requiring anemia with changing bone marrow future for thelast decade or so with a different eye as he has more finding suggestive for CLL. I put a number oftests including PET scan and will have more input from our CLL experts. Once he is evaluated by our CLL expert will discuss more unless they give us more treatment recommendations. Today is November 13, 2024. Since his last visit he discuss with Dr. 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 In the PET scan is not active. Still he is transfusion dependent. Bone marrow morphology show 20-30% monoclonal B-cell. Karyotyping normal pretty much with deletion Y, maybe age-appropriate. And next generation sequencing did not show significant abnormality other than DNMT3A likely age-related Otherwise no systemic symptom to share with me no shortness of breath he does all his activities ofdaily living ALLERGIES/CONTRAINDICATIONS Reviewed and include: Allergies Allergen Reactions Penicillins Diarrhea and Hives (Reselect Reaction) hives CURRENT MEDICATIONS Reviewed and include: Medications Ordered Prior to Encounter[1] DIAGNOSTICS Reviewed and include: Recent Results (from the past 24 hours) CBC with Differential, Blood Collection Time: 11/13/24 11:12 AM Result Value Hemoglobin 7.8 (L) Hematocrit 24.0 (L) Erythrocytes 2.26 (L) MCV 106.2 (H) RBC Distrib Width 18.0 (H) Platelet Count 204 Leukocytes 4.1 Neutrophils 2.98 Lymphocytes 0.93 (L) Monocytes 0.10 (L) Eosinophils 0.05 Basophils <0.04 ASSESSMENT / PLAN 1 Recurrence of Transfusion-independent even while he is on cyclosporine, bone marrow did not show any significant abnormalities other than 20 30% monoclonal B-cell Elevated creatinine secondary to cyclosporine (stable around 2 since 2019). Monoclonal B-cell lymphocytosis Today and previously have discussed that it is difficult to have a clear diagnosis based on the bone marrow biopsy. He is currently transfusion dependent. His erythropoietin is inappropriately low tothe level of hemoglobin. Previously his erythropoietin level was more than a 1000. The latest one is only 144. I believe erythropoietin stimulating hormone the me the best approach at this point withminimal side effects. Will try for the next 10-12 weeks. If his transfusion dependency persists in addition to doing a bone marrow biopsy may try to treat him with testosterone. I have also advised him to taper down cyclosporine in the next couple of weeks. Plan CBC every other week at [facility] Cyclosporine 125 mg twice a day Plan to see him in about four weeks after he see our CLL expert Slava Lees M.D. [1] Current Outpatient Medications on File Prior to Visit Medication Sig Dispense Refill aspirin [address] tablet Take 81 mg by mouth daily. cycloSPORINE modified (Gengraf,NeoraL) 25 mg capsule TAKE 1 CAPSULE BY MOUTH 2 TIMES A DAY. 180 capsule 3 cycloSPORINE modified (Gengraf,NeoraL) 50 mg capsule TAKE 2 CAPSULES BY MOUTH 2 TIMES A DAY. 360 capsule 3 lisinopriL 10 mg tablet (Patient not taking: Reported on 10/16/2024) tamsulosin (Flomax) 0.4 mg 24 hr capsule take 1 capsule (0.4 mg) by mouth every day with food No current facility-administered medications on file prior to visit. documented in this encounter Plan of Treatment Upcoming Encounters Date Type Department Care Team (Late st Contact Info) Description 12/11/2024 1:20 PM CDT Appointment Department of Laboratory Medicine in [address] [phone] Slava Lees M.D. [address] [place] [phone] 12/11/2024 2:30 PM CDT Infusion Department of Infusion Therapy in [address] [phone] Slava Lees M.D. [address] [place] [phone] 12/18/2024 12:00 PM CDT Appointment Department of Laboratory Medicine in [address] [phone] Slava Lees M.D. [address] [place] [phone] 12/25/2024 11:00 AM CDT Appointment Department of Laboratory Medicine in [address] [phone] Slava Lees M.D. [address] [place] [phone] 12/25/2024 12:00 PM CDT Infusion Department of Infusion Therapy in [address] [phone] Slava Lees M.D. [address] [place] [phone] 01/01/2025 11:10 AM CDT Appointment Department of Laboratory Medicine in [address] [phone] Slava Lees M.D. [address] [place] [phone] 01/08/2025 1:30 PM CDT Appointment Department of Laboratory Medicine in [address] [phone] Slava Lees M.D. [address] [place] [phone] 01/08/2025 2:30 PM CDT Infusion Department of Infusion Therapy in [address] [phone] Slava Lees M.D. [address] [place] [phone] 01/15/2025 11:10 AM CDT Appointment Department of Laboratory Medicine in [address] [phone] Slava Lees M.D. [address] [place] [phone] 01/22/2025 11:00 AM CDT Appointment Department of Laboratory Medicine in [address] [phone] Slava Lees M.D. [address] [place] [phone] 01/22/2025 12:30 PM CDT Infusion Department of Infusion Therapy in [address] [phone] Slava Lees M.D. [address] [place] [phone] 01/29/2025 11:10 AM CDT Appointment Department of Laboratory Medicine in [address] [phone] Slava Lees M.D. [address] [place] [phone] 02/05/2025 1:30 PM CDT Appointment Department of Laboratory Medicine in [address] [phone] Slava Lees M.D. [address] [place] [phone] 02/05/2025 2:30 PM CDT Infusion Department of Infusion Therapy in [address] [phone] Slava Lees M.D. [address] [place] [phone] 02/12/2025 11:10 AM CDT Appointment Department of Laboratory Medicine in [address] [phone] Slava Lees M.D. [address] [place] [phone] 02/26/2025 11:10 AM CDT Appointment Department of Laboratory Medicine in [address] [phone] Slava Lees M.D. [address] [place] [phone] Scheduled Orders Name Type Priority Associated Diagnoses Orde r Schedule Comprehensive Metabolic Panel Lab Routine Aplasia Red Cell (HCC) Expected: 02/13/2025, Expires: 02/13/2026 CBC with Differential, Blood Lab Routine Aplasia Red Cell (HCC) Expected: 02/13/2025, Expires: 02/13/2026 Reticulocytes Lab Routine Aplasia Red Cell (HCC) Expected: 02/13/2025, Expires: 02/13/2026 PSA (Prostate-Specific Antigen), Diagnostic Lab Routine Aplasia Red Cell (HCC) Expected: 02/13/2025, Expires: 02/13/2026 Scheduled Referrals Name Type Priority Associated Diagnoses Order Schedule Hematology office visit (clinic) [facility]; CMD; General Outpatient Referral Routine Expected: 02/13/2025, Expires: 02/13/2026 documented as of this encounter Visit Diagnoses Diagnosis Aplasia Red Cell (HCC)- Primary documented in this encounter Care Teams Garnishment Specialist Relationship Specialty Start Date End Date Elsewhere, Pcp PCP - General Internal Medicine 07/16/23 documented as of this encounter
--- OUTSIDE RECORDS SUMMARY | 2024-12-05 20:54 | XMS_ITS | Encounter Summary ---
Author Organization [facility] Address [address] [place] [address] Care Team Providers Care Manager Category Name Role Phone Elsewhere, Pcp Primary Care Provider Unavailabl e Encounter Details Date Type Department Care Team (Latest Contact Info) Description 11/06/2024 11:33 AM CDT - 11/06/2024 4:29 PM CDT Hospital Encounter Department of Laboratory Medicine in [address] [phone] Slava Lees M.D. 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 Utilities Answer Date Recorded In the [...] your living situation today? I have a [facility] place to live 04/10/2024 Sex and Gender Information Value Date Recorded Sex Assigned at Male 03/26/2023 7:11 AM CDT Legal Sex Male 7:47 PM [employer] Gender Identity Male 08/12/2018 1:39 PM [employer] Sexual Orientation Straight 08/12/2018 1: 39 PM [employer] documented as of this encounter Medications at [...] Appointment Department of Laboratory Medicine in [address] [phone] Slava Lees M.D. [address] [place] [phone] 12/11/2024 2:30 PM CDT Infusion Department of Infusion Therapy in [address] [phone] Slava Lees M.D. [address] [place] [phone] 12/18/2024 12:00 PM CDT Appointment Department of Laboratory Medicine in [address] [phone] Slava Lees M.D. [address] [place] [phone] 12/25/2024 11:00 AM CDT Appointment Department of Laboratory Medicine in [address] [phone] Slava Lees M.D. [address] [place] [phone] 12/25/2024 12:00 PM CDT Infusion Department of Infusion Therapy in [address] [address] Slava Lees M.D. [address] [place] [phone] 01/01/2025 11:10 AM CDT Appointment Department of Laboratory Medicine in [address] [phone] lSava Lees M.D. [address] [place] [phone] 01/08/2025 1:30 PM CDT Appointment Department of Laboratory Medicine in [address] [phone] Slava Lees M.D. [address] [place] [phone] 01/08/2025 2:30 PM CDT Infusion Department of Infusion Therapy in [address] [address] Slava Lees M.D. [address] [place] [phone] 01/15/2025 11:10 AM CDT Appointment Department of Laboratory Medicine in [address] [address] Slava Lees M.D. [address] [place] [phone] 01/22/2025 11:00 AM CDT Appointment Department of Laboratory Medicine in [address] [phone] Slava Lees M.D. [address] [place] [phone] 01/22/2025 12:30 PM CDT Infusion Department of Infusion Therapy in [address] [address] Slava Lees M.D. [address] [place] [phone] 01/29/2025 11:10 AM CDT Appointment Department of Laboratory Medicine in [address] [address] Slava Lees M.D. [address] [place] [phone] 02/05/2025 1:30 PM CDT Appointment Department of Laboratory Medicine in [address] [address] Slava Lees M.D. [address] [place] [phone] 02/05/2025 2:30 PM CDT Infusion Department of Infusion Therapy in [address] [address] Slava Lees M.D. [address] [place] [phone] 02/12/2025 11:10 AM CDT Appointment Department of Laboratory Medicine in [address] [place] [phone] Slava Lees M.D. [address] [place] [phone] 02/26/2025 11:10 AM CDT Appointment Department of Laboratory Medicine in [address] [phone] Slava Lees M.D. 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 LAB BLOOD ADD-ON Final Resul t [facility] [address] [place] [id number], [facility] CN[facility] in [address] [address] * (ABNORMAL) CBC with Differential, Blood (11/06/2024 11:39 AM CDT) Hemoglobin 6.9(L) 13.2 - 16.6 g/dL 11/06/2024 12:18 PM CDT CNFL Hematocrit 21.3(L) 38.3 - 48.6 % 11/06/2024 12:18 PM CDT CNFL Erythrocytes 1.93(L) 4.35 - 5.65 x10(12)/L 11/06/2024 12:18 PM CDT CNFL MCV 110.4(H) 78.2 - 97.9 fL 11/06/2024 12:18 PM CDT CNFL RBC Distrib Width 16.4(H) 11.8 - 14.5 % 11/06/2024 12:18 PM CDT CNFL Platelet Count 199 135 - 317 x10(9)/L 11/06/2024 12:18 PM CDT CNFL Leukocytes 3.3(L) 3.4 - 9.6 x10(9)/L 11/06/2024 12:18 PM CDT CNFL Neutrophils 2.46 1.56 - 6.45 x10(9)/L 11/06/2024 12:18 PM CDT CNFL Lymphocytes 0.49(L) 0.95 - 3.07 x10(9)/L 11/06/2024 12:18 PM CDT CNFL Monocytes 0.31 0.26 - 0.81 x10(9)/L 11/06/2024 12:18 PM CDT CNFL Eosinophils <0.04 0.03 - 0.48 x10(9)/L 11/06/2024 12:18 PM CDT CNFL Basophils <0.04 0.01 - 0.08 x10(9)/L 11/06/2024 12:18 PM CDT CNFL Blood (Blood, Venous) 11/06/2024 11:39 AM CDT 11/06/2024 11:44 AM CDT us Slava H Begna M.D. 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
--- OUTSIDE RECORDS SUMMARY | 2024-12-05 20:54 | XMS_ITS | Encounter Summary ---
Author Organization [facility] Address [address] [place] [address] Care Team Providers Care Maintenance Equipment Operator Name Role Phone Elsewhere, Pcp Primary Care Provider Unavailabl e Encounter Details Date Type Department Care Team (Latest Contact Info) Description 10/31/2024 8:00 AM OFFICE SERVICES REPRESENTATIVE - 10/31/2024 8:25 AM [facility] Hospital Encounter Department of Laboratory Medicine and Pathology, [facility], in [place], [place] [address] [place] [address] Slava Lees M.D. 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 I have a [facility] place to live 04/10/2024 Sex and Gender Information Value Date Recorded Sex Assigned at Male 03/26/2023 7:11 AM CDT Legal Sex Male 7:47 PM OFFICE SERVICES REPRESENTATIVE Gender Identity Male 08/12/2018 1:39 PM OFFICE SERVICES REPRESENTATIVE Sexual Orientation Straight 08/12/2018 1: 39 PM OFFICE SERVICES REPRESENTATIVE documented as of this encounter Medications at [...] CDT Appointment Department of Laboratory Medicine in [address] [address] Slava Lees M.D. [address] [place] [phone] 12/11/2024 2:30 PM CDT Infusion Department of Infusion Therapy in [address] [phone] Slava Lees M.D. [address] [place] [phone] 12/18/2024 12:00 PM CDT Appointment Department of Laboratory Medicine in [address] [address] Slava Lees M.D. [address] [place] [phone] 12/25/2024 11:00 AM CDT Appointment Department of Laboratory Medicine in [address] [phone] Slava Lees M.D. [address] [place] [phone] 12/25/2024 12:00 PM CDT Infusion Department of Infusion Therapy in [address] [address] Slava Lees M.D. [address] [place] [phone] 01/01/2025 11:10 AM CDT Appointment Department of Laboratory Medicine in [address] [phone] Slava Lees M.D. [address] [place] [phone] 01/08/2025 1:30 PM CDT Appointment Department of Laboratory Medicine in [address] [phone] Slava Lees M.D. [address] [place] [phone] 01/08/2025 2:30 PM CDT Infusion Department of Infusion Therapy in [address] [address] Slava Lees M.D. [address] [place] [phone] 01/15/2025 11:10 AM CDT Appointment Department of Laboratory Medicine in [address] [phone] Slava Lees M.D. [address] [place] [phone] 01/22/2025 11:00 AM CDT Appointment Department of Laboratory Medicine in [address] [phone] Slava Lees M.D. [address] [place] [phone] 01/22/2025 12:30 PM CDT Infusion Department of Infusion Therapy in [address] [phone] Slava Lees M.D. [address] [place] [phone] 01/29/2025 11:10 AM CDT Appointment Department of Laboratory Medicine in [address] [phone] Slava Lees M.D. [address] [place] [phone] 02/05/2025 1:30 PM CDT Appointment Department of Laboratory Medicine in [address] [phone] Slava Lees M.D. [address] [place] [phone] 02/05/2025 2:30 PM CDT Infusion Department of Infusion Therapy in [address] [phone] Slava Lees M.D. [address] [place] [phone] 02/12/2025 11:10 AM CDT Appointment Department of Laboratory Medicine in [address] [place] [address] Slava Lees M.D. [address] [place] [address] 02/26/2025 11:10 AM CDT Appointment Department of Laboratory Medicine in [address] [phone] Slava Lees M.D. 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) Aplasia Red Cell (HCC) RETICULOCYTES, B Routine 10/31/2024 8:13 AM OFFICE SERVICES REPRESENTATIVE 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) Aplasia Red Cell (HCC) CBC WITH DIFFERENTIAL, B Routine 025 8:13 AM OFFICE SERVICES REPRESENTATIVE 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) Aplasia Red Cell (HCC) IMMUNOGLOBULINS (IGG, IGA, AND IGM), S Routine 10/31/2024 8:13 AM OFFICE SERVICES REPRESENTATIVE 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) Aplasia Red Cell (HCC) ASPARTATE AMINOTRANSFERASE (AST), S/P Routine 10/31/2024 8:12 AM OFFICE SERVICES REPRESENTATIVE 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) Aplasia Red Cell (HCC) ALKALINE PHOSPHATASE, S/P Routine 10/31/2024 8:12 AM OFFICE SERVICES REPRESENTATIVE 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) Aplasia Red Cell (HCC) LACTATE DEHYDROGENASE (LD), S Routine 10/31/2024 8:12 AM OFFICE SERVICES REPRESENTATIVE 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) Aplasia Red Cell (HCC) CREATININE WITH EGFR, S/P Routine 10/31/2024 8:12 AM OFFICE SERVICES REPRESENTATIVE 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) Aplasia Red Cell (HCC) CALCIUM, TOT, S/P Routine 10/31/2024 8:1 2 AM OFFICE SERVICES REPRESENTATIVE 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) Aplasia Red Cell (HCC) BILIRUBIN, TOT, S/P Routine 10/31/2024 8 :12 AM OFFICE SERVICES REPRESENTATIVE 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) Aplasia Red Cell (HCC) [id number] (BETA-2-M), S Routine 10/31/2024 8:12 AM OFFICE SERVICES REPRESENTATIVE 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) Aplasia Red Cell (HCC) TP53 PRE-ANALYSIS CELL SORTING, V Routine 10/31/2024 8:09 AM OFFICE SERVICES REPRESENTATIVE documented in this encounter Results * Immunoglobulins (IgG, IgA, and IgM) (10/31/2024 8:13 AM OFFICE SERVICES REPRESENTATIVE) Immunoglobulin A (IgA), S 331 61 - 356 mg/dL 10/31/2024 2:28 PM OFFICE SERVICES REPRESENTATIVE SDSC Immunoglobulin M (IgM), S 149 37 - 286 mg/dL 10/31/2024 2:28 PM OFFICE SERVICES REPRESENTATIVE [facility] Immunoglobulin G (IgG), S 1470 767 - 1590 mg/dL 10/31/2024 2:28 PM OFFICE SERVICES REPRESENTATIVE [facility] Blood (Blood, Venous) 10/31/2024 8:13 AM OFFICE SERVICES REPRESENTATIVE 10/31/2024 10:42 AM OFFICE SERVICES REPRESENTATIVE us Slava Lees M.D. LAB BLOOD ADD-ON Final Resul t [facility] [address] [place] [address] [facility] [address] [place] [address] * Chronic Lymphocytic Leukemia (CLL), Diagnostic FISH (10/31/2024 8:13 AM OFFICE SERVICES REPRESENTATIVE) Pathologist [facility] Result Summary Normal 11/04/2024 8:17 PM CDT DTL Released by Esperanza Mera, Ph.D. 8:17 PM CDT DTL Result Table ----- Abnormality Name Result Abn% Cutoff% -6q23(D6Z1x2,MYBx 1) Normal <12.0 -11q22.3(O46Q1h4, ATMx1) Normal <12.0 +12(D12Z3,MDM2)x3 Normal <7.0 -13q14.3([id number] 1,SONS6b1) Normal <12.0 -13q14.3x2(D13S31 9x0,NMWX5m7) Normal <5.0 t(11;14) CCND1-XT/IGH-XT fusion Normal <4.0 [...] [COPY#;100;AM] 11q13(CCND1-XT),14 q32(IGH-XT) [DFISH;200;AM] 12CEN(D12Z3),12q15 (MDM2) [COPY#;100;AM] 13q14.3(T22A812),1 3q34(LAMP1) [COPY#;100;AM] 17p13.1(TP53),17CE N(D17Z1) [COPY#;100;AM] Probe strategies include: DFISH=dual color, double fusion; COPY#=region gain and loss. Scoring Method: Manual Probe vendors include: T = [facility] Developed AM = [employer] ([place], [place]) 11/04/2024 8:17 PM CDT DTL Additional Information Previous Studies DATE SPECIMEN RESULT 05/20/2014 Blood MDS FISH panel within normal limits ----- 08/12/2014 Marrow No clonal abnormality was apparent 08/12/2014 Marrow Array=normal male ---- 02/25/2015 Marrow No clonal abnormality was apparent ---- 08/16/2015 Marrow No clonal abnormality was apparent ----- 08/16/2022 Marrow -Y in 6/14 metaphases ----- 09/16/2024 Marrow -Y in 20 metaphases ----- A portion of the testing process was performed at [facility] site [id number]. 11/04/2024 8:17 PM CDT DTL Disclaimer Applicable to Analyte Specific Reagent (ASR) and Laboratory Developed Tests (LDT). This test was developed and its performance characteristics determined by [facility] in a manner consistent with CLIA requirements. [...] DTL Blood (Blood, Venous) 10/31/2024 8:13 AM OFFICE SERVICES REPRESENTATIVE 10/31/2024 8:58 AM OFFICE SERVICES REPRESENTATIVE us Slava Lees M.D. LAB GENETIC TESTING Final Re sult [facility] [address] [place] [address], [facility] DTL 200 [place] [address] * Reticulocytes (10/31/2024 8:13 AM OFFICE SERVICES REPRESENTATIVE) Pathologist [facility] Reticulocytes, B 1.53 0.60 - 2.71 % 10/31/2024 9:01 AM OFFICE SERVICES REPRESENTATIVE DTL Absolute Reticulocyte 30.8 30.4 - 110.9 x10(9)/L 10/31/2024 9:01 AM OFFICE SERVICES REPRESENTATIVE DTL Blood (Blood, Venous) 10/31/2024 8:13 AM OFFICE SERVICES REPRESENTATIVE 10/31/2024 8:39 AM OFFICE SERVICES REPRESENTATIVE Slava Lees M.D. LAB BLOOD ADD-ON Final Resul t [facility] [address] [place] [address], [facility] [place] [address] * Leukemia/Lymphoma Immunophenotyping by Flow Cytometry, Blood (10/31/2024 8:13 AM OFFICE SERVICES REPRESENTATIVE) Pathologist [facility] LCMSB Result Performed 11/01/2024 11:49 AM OFFICE SERVICES REPRESENTATIVE DTL Final Diagnosis: Peripheral blood, flow cytometric [...] seen in a previous bone marrow specimen ([id number]; 09/16/2024). Reviewed by: Elio Granados M.D. 11/01/2024 11:49 AM OFFICE SERVICES REPRESENTATIVE DTL Special Studies: WBC: 2.9 x 10(9)/L [...] received within validated guidelines. 11/01/2024 11:49 AM OFFICE SERVICES REPRESENTATIVE DTL Microscopic Description A Sxsnsn-Btxrfq-eicit ed slide prepared from the flow cytometry specimen is examined. The specimen contains small lymphocytes with round nuclear contours, coarsely clumped chromatin and inconspicuous nucleoli. 11/01/2024 11:49 AM OFFICE SERVICES REPRESENTATIVE DTL Comment: ----ADDITIONAL INFORMATION---- This test was developed using an analyte specific reagent. Its performance characteristics were determined by [facility] in a manner consistent with CLIA requirements. This test has not been cleared or approved by the U.S. Food and Drug Administration. Blood (Blood, Peripheral Draw) 10/31/2024 8:13 AM OFFICE SERVICES REPRESENTATIVE 10/31/2024 9:06 AM OFFICE SERVICES REPRESENTATIVE us Slava Lees M.D. LAB GENETIC TESTING Final Re sult [facility] [address] [place] [address], [facility] DTL [address] [place] [address] * IGH Somatic Hypermutation Analysis, B-cell Chronic Lymphocytic Leukemia (B- CLL) (10/31/2024 8:13 [facility]) BCLL Result see interpretation 11/07/2024 [...] adverse prognosis (Moshe Soto et al, 2002, [id number]). Correlation of these results with clinical, pathologic [...] developed and its performance characteristics determined by [facility] in a manner consistent with CLIA requirements. This test has not been cleared or approved by the U.S. Food and Drug Administration. Blood (Blood, Peripheral Draw) 10/31/2024 8:13 AM OFFICE SERVICES REPRESENTATIVE 10/31/2024 9:04 AM OFFICE SERVICES REPRESENTATIVE us Slava Lees M.D. LAB GENETIC TESTING Final Re sult [facility] [address] [place] [address], [facility] DTL [address] [place] [address] * (ABNORMAL) CBC with Differential, Blood (10/31/2024 8:13 AM OFFICE SERVICES REPRESENTATIVE) Hemoglobin 7.1(L) 13.2 - 16.6 g/dL 10/31/2024 9:01 AM OFFICE SERVICES REPRESENTATIVE DTL Hematocrit 22.2(L) 38.3 - 48.6 % 10/31/2024 9:47 AM OFFICE SERVICES REPRESENTATIVE DTL Erythrocytes 2.01(L) 4.35 - 5.65 x10(12)/L 10/31/2024 9:47 AM OFFICE SERVICES REPRESENTATIVE DTL MCV 110.4(H) 78.2 - 97.9 fL 10/31/2024 9:47 AM OFFICE SERVICES REPRESENTATIVE DTL RBC Distrib Width 15.7(H) 11.8 - 14.5 % 10/31/2024 9:01 AM OFFICE SERVICES REPRESENTATIVE DTL Platelet Count 229 135 - 317 x10(9)/L 10/31/2024 9:01 AM OFFICE SERVICES REPRESENTATIVE DTL Leukocytes 3.8 3.4 - 9.6 x10(9)/L 10/31/2024 9:01 AM OFFICE SERVICES REPRESENTATIVE DTL Neutrophils 1.71 1.56 - 6.45 x10(9)/L 10/31/2024 9:47 AM OFFICE SERVICES REPRESENTATIVE DHPM Lymphocytes 1.47 0.95 - 3.07 x10(9)/L 10/31/2024 9:47 AM OFFICE SERVICES REPRESENTATIVE DTL Monocytes 0.45 0.26 - 0.81 x10(9)/L 10/31/2024 9:47 AM OFFICE SERVICES REPRESENTATIVE DTL Eosinophils 0.11 0.03 - 0.48 x10(9)/L 10/31/2024 9:47 AM OFFICE SERVICES REPRESENTATIVE DTL Basophils 0.04 0.01 - 0.08 x10(9)/L 10/31/2024 9:47 AM OFFICE SERVICES REPRESENTATIVE DTL Blood (Blood, Venous) 10/31/2024 8:13 AM OFFICE SERVICES REPRESENTATIVE 10/31/2024 8:39 AM OFFICE SERVICES REPRESENTATIVE Slava Lees M.D. LAB BLOOD ADD-ON Final Resul t Performing Organization Address City/[facility]/ZIP Co de Phone Number [facility] [address] [place] [address], [facility] 200 [place], [place] [id number] [place] [address] 200 [place] [address] * LD (Lactate Dehydrogenase) (10/31/2024 8:12 AM OFFICE SERVICES REPRESENTATIVE) Lactate Dehydrogenase (LD), S 157 122 - 222 U/L 10/31/2024 9:14 AM OFFICE SERVICES REPRESENTATIVE DTL Blood (Blood, Venous) 10/31/2024 8:12 AM OFFICE SERVICES REPRESENTATIVE 10/31/2024 8:54 AM OFFICE SERVICES REPRESENTATIVE us Slava Lees M.D. LAB BLOOD NON ADD-ON Final R esult Performing Organization Address [facility] Co de Phone Number [facility] [address] [place] [address], [facility] 200 [place] [address] * (ABNORMAL) Creatinine with Estimated GFR (10/31/2024 8:12 AM OFFICE SERVICES REPRESENTATIVE) Creatinine 1.90(H) 0.74 - 1.35 mg/dL 10/31/2024 9:14 AM OFFICE SERVICES REPRESENTATIVE DTL Estimated GFR (eGFR) 37(L) >=60 mL/min/BSA 10/31/2024 9:14 AM OFFICE SERVICES REPRESENTATIVE DTL Comment: Estimated GFR calculated using the 2020 CKD_EPI creatinine equation. Blood (Blood, Venous) 10/31/2024 8:12 AM OFFICE SERVICES REPRESENTATIVE 10/31/2024 8:54 AM OFFICE SERVICES REPRESENTATIVE us Slava Lees M.D. LAB BLOOD ADD-ON Final Resul t Performing Organization Address City/[facility]/ZIP Co de Phone Number [facility] [address] [place] [address], [facility] [address] [place] [address] * (ABNORMAL) Calcium, Total (10/31/2024 8:12 AM OFFICE SERVICES REPRESENTATIVE) Calcium, Total, S 8.6(L) 8.8 - 10.2 mg/dL 10/31/2024 9:14 AM OFFICE SERVICES REPRESENTATIVE DT Blood (Blood, Venous) 10/31/2024 8:12 AM OFFICE SERVICES REPRESENTATIVE 10/31/2024 8:54 AM OFFICE SERVICES REPRESENTATIVE Slava Lees M.D. LAB BLOOD ADD-ON Final Resul t Performing Organization Address City/[facility] Co de Phone Number [facility] 200 [place] [address] * (ABNORMAL) Bilirubin, Total (10/31/2024 8:12 AM OFFICE SERVICES REPRESENTATIVE) Bilirubin, Total, S 1.3(H) 0.0 - 1.2 mg/dL 10/31/2024 9:14 AM OFFICE SERVICES REPRESENTATIVE [facility] Blood (Blood, Venous) 10/31/2024 8:12 AM OFFICE SERVICES REPRESENTATIVE 10/31/2024 8:54 AM OFFICE SERVICES REPRESENTATIVE us Slava Lees M.D. LAB BLOOD ADD-ON Final Resul t Performing Organization Address [facility] Co de Phone Number [facility] [address] [place] [address] * (ABNORMAL) Hqxm-5-Gaqqxvvpvilpf (Beta-2-M) (10/31/2024 8:12 AM OFFICE SERVICES REPRESENTATIVE) Jxlq-2-Cdfruik obulin, S 5.91(H) 1.21 - 2.70 mcg/mL 10/31/2024 1:12 PM OFFICE SERVICES REPRESENTATIVE [facility] Blood (Blood, Venous) 10/31/2024 8:12 AM OFFICE SERVICES REPRESENTATIVE 10/31/2024 10:42 AM OFFICE SERVICES REPRESENTATIVE Slava Lees M.D. LAB BLOOD ADD-ON Final Resul t [facility] [address] [place] [address] [facility] [address] [place] [address] * AST (Aspartate Aminotransferase) (10/31/2024 8:12 AM OFFICE SERVICES REPRESENTATIVE) Aspartate Aminotransferase (AST), S 20 8 - 48 U/L 10/31/2024 9:14 AM OFFICE SERVICES REPRESENTATIVE DTL Blood (Blood, Venous) 10/31/2024 8:12 AM OFFICE SERVICES REPRESENTATIVE 10/31/2024 8:54 AM OFFICE SERVICES REPRESENTATIVE us Slava Lees M.D. LAB BLOOD ADD-ON Final Resul t Performing Organization Address City/[facility]/ZIP Co de Phone Number [facility] [address] [place] [address] * Alkaline Phosphatase (10/31/2024 8:12 AM OFFICE SERVICES REPRESENTATIVE) Pathologist [facility] Alkaline Phosphatase, S 58 40 - 129 U/L 10/31/2024 9:14 AM OFFICE SERVICES REPRESENTATIVE DT Blood (Blood, Venous) 10/31/2024 8:12 AM OFFICE SERVICES REPRESENTATIVE 10/31/2024 8:54 AM OFFICE SERVICES REPRESENTATIVE us Slava Lees M.D. LAB BLOOD ADD-ON Final Resul t [facility] [address] [place] [address], [facility] [address] [place] [address] * TP53 Gene Somatic Mutation Pre-Analysis Cell Sorting (10/31/2024 8:09 AM OFFICE SERVICES REPRESENTATIVE) Pathologist [facility] TP53 Pre-Analysis Cell Sort Performed 10/31/2024 9:29 PM OFFICE SERVICES REPRESENTATIVE DT Comment: ----ADDITIONAL INFORMATION---- Flow cytometric cell selection [...] developed and its performance characteristics determined by [facility] in a manner consistent with CLIA requirements. This test has not been cleared or approved by the U.S. Food and Drug Administration. 10/31/2024 8:09 AM OFFICE SERVICES REPRESENTATIVE 10/31/2024 10:00 AM OFFICE SERVICES REPRESENTATIVE us Slava Lees M.D. 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
--- OUTSIDE RECORDS SUMMARY | 2024-12-05 20:54 | XMS_ITS | Encounter Summary ---
Author Organization [facility] Address [address] [place] [id number] Care Team Providers Care Industrial [address] Magistrate Name Role Phone Elsewhere, Pcp Primary Care Provider Unavailabl e Reason for Visit * Outpatient (Routine) - Closed Specialty Diagnoses / Procedures Referred By Titus dallas Referred To Contact Hematology Oncology Slava Lees M.D. [address] [place] [address] Phone: tel: fax: [facility] Referral ID Status Reason Start Date Expiration Date Visits Re quested Visits Authorized [id number] Closed 10/16/2024 04/17/2026 1 1 Encounter Details Date Type Department Care Team (Latest Contact Info) Description 10/31/2024 2:00 PM ENTERPRISE BUSINESS ARCHITECT Comprehensive Visit Division of Hematology in [place], [place] [address] [place] [phone] Frank Bowen M.B.B.S. 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); Aplasia Red Cell (HCC); Anemia Of Chronic Renal Failure; Monoclonal B Cell Lymphocytosis Social History Tobacco Use Types Packs/Day Years Used Date Smoking Tobacco: Former Cigarettes 1 4.4 0 11/25/1969 - 04/02/1974 Passive Smoke Exposure: Past Smokeless Tobacco: Never Comments: service ti me only Passive Exposure Comments:Dad When I was growing up & in the Service Alcohol Use Standard Drinks/Week Comments Yes 5 (1 standard drink = 0.6 oz pur e alcohol) [facility] Utilities Answer Date Recorded In [...] AM CDT Legal Sex Male 7:47 PM ENTERPRISE BUSINESS ARCHITECT Gender Identity Male 08/12/2018 1:39 PM ENTERPRISE BUSINESS ARCHITECT Sexual Orientation Straight 08/12/2018 1: 39 PM ENTERPRISE BUSINESS ARCHITECT documented as of this encounter Last Filed Vital Signs Vital Sign Reading Time Taken Comments Blood Pressure 134/80 10/31/2024 2:18 PM ENTERPRISE BUSINESS ARCHITECT Pulse 76 10/31/2024 2:18 PM ENTERPRISE BUSINESS ARCHITECT Temperature 36.2 C (97.2 F) 10/31/2024 2:18 PM ENTERPRISE BUSINESS ARCHITECT Respiratory Rate - - Oxygen Saturation - - Inhaled Oxygen Concentration - - Weight 70.2 kg (154 lb 12.2 oz) 10/31/2024 2:18 PM ENTERPRISE BUSINESS ARCHITECT Height 166 cm (5' 5.35) 10/31/2024 2:18 PM ENTERPRISE BUSINESS ARCHITECT Body Mass Index 25.48 10/31/2024 2:18 PM ENTERPRISE BUSINESS ARCHITECT documented in this encounter Consult Notes * Frank Bowen M.B.B.S. - 10/31/2024 2:00 PM CST SUBJECTIVE REFERRAL Slava Lees M.D. CHIEF COMPLAINT / REASON FOR VISIT Primary ship joiner: Dr. Frank Bowen ([phone]) Pure red cell aplasia Monoclonal B cell lymphocytosis HISTORY OF PRESENT ILLNESS Gurpreet Catalan is a 74 y.o. male with the following history. August - April 2014: the patient was noted to have worsening anemia, requiring red cell transfusions. An outside bone marrow biopsy done in February 2014, and reviewed here showed the presence of a hypercellular bone marrow with peñaloza hyperplasia and fibrosis. CBC done at that time showed a hemoglobin of 6.6, with a white count of 5.1, and a platelet count of 270. Additional investigations including cytogenetics showed a normal karyotype, there was no evidence of a BCR-ABL fusion, and there was no JAK2 V617F mutation noted. January 2015 - March 2015: A repeat bone marrow biopsy showed markedly hypercellular bone marrow withmarked erythroid hypoplasia, with left-shifted maturation, mild megakaryocytic atypia, and left-shifted granulocytic maturation. After a careful discussion of risks and benefits, treatment with lenalidomide was started. However, the patient developed neutropenia, and therefore this treatment was stopped. There was no improvement in the anemia with this treatment. April 2015: He received supplemental testosterone, although this did not improve his hemoglobin, and because of insurance issues, this was stopped. August 2015 - June 2018: A repeat bone marrow aspirate and biopsy in August 15, 2015 showed the presence of red cell aplasia with markedly decreased erythropoiesis, with no other abnormalities. The peripheral blood reticulocyte count was undetectable. A diagnosis of pure red cell aplasia was made, there was no evidence of parvovirus B19. 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 The patient was started on therapy with cyclosporin which led to an improvement in the hemoglobin with no dependency on red cell transfusions by January 2016. The patient continued this treatment through June 2018, at which point cyclosporin was discontinued. July 2022: The patient had worsening fatigue, and a CBC profile showed worsening anemia. The reticulocyte count was undetectable. Therefore, a repeat bone marrow aspirate and biopsy was done which showed the presence of a hypercellular marrow with erythroid predominance left shift, there was no evidence of abnormalities in the granulocyte or megakaryocytes precursors. A new process discoveredhere was the presence of a monotypic B-cell population occupying approximately 15% of the bone marrow cellularity, there were 2 distinct B-cell populations noted, both of the CLL immunophenotype. Thepatient was restarted on therapy with cyclosporin in August 2022, which led to an improvement in the hemoglobin and the reticulocyte profile. August 2024: The patient was noted to have worsening anemia, with a bone marrow aspirate and biopsy demonstrating the presence of moderately hypercellular bone marrow with left-shifted but adequate erythropoiesis, with involvement by a monotypic kappa B-cell infiltrate with a CLL like immunophenotype occupying approximately 10-20% of the bone marrow cellularity, which is not different from what the bone marrow showed in July 2022. There was persistence of the DNMT3A mutation noted. The patient is referred to the [facility] for further evaluation. History of Present Illness The patient, with a history of pure red cell aplasia, presents with low hemoglobin. He was referredby Dr. Lees for evaluation of chronic lymphocytic leukemia (CLL) found in a recent bone marrow biopsy. In July 2022, a bone marrow biopsy was performed due to feeling unwell, revealing hypercellularmarrow and the presence of CLL. Cyclosporine was restarted in August 2022 due to low hemoglobin, despite not requiring transfusions at that time. His energy levels improved, but he experienced some k idney impairment. As of March 2024, he was taking cyclosporine 200 mg twice daily, which was reduced to 125 mg twice daily. A recent bone marrow biopsy in August 2024 confirmed the presence of CLL. He has a history of low hemoglobin and pure red cell aplasia, initially identified in 2013 with a profoundly low B12 level. He received B12 supplementation and required red cell transfusions for nearly two years. Lenalidomide was started in 2014 but was discontinued after six cycles due to neutropenia and infection. Cyclosporine was initiated in August 2015, leading to transfusion independence by January 2016. Cyclosporine was tapered and stopped in June 2018. He had a red cell transfusion about a month ago to maintain hemoglobin levels above 7 g/dL for a trip. Recent blood work showed a ret iculocyte count of 30.8, improved from less than 10 in July 2022. Erythropoietin levels were last checked in 2021, measuring 8.6. He has not received EPO or darbepoetin injections. He has a history of kidney issues, potentially affecting erythropoietin production. His creatinine level is high, indicating reduced kidney function, which could be exacerbated by cyclosporine use. 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 He denies any recent bleeding. REVIEW OF SYSTEMS All systems reviewed and negative except per HPI CURRENT MEDICATIONS Current Medications[1] OBJECTIVE VITAL SIGNS Vitals: 10/31/24 1418 BP: 134/80 Pulse: 76 Temp: 36.2 ??C Body mass index is 25.48 kg/m??. Body surface area is 1.8 meters squared. PHYSICAL EXAMINATION ECOG Performance Status: 0. Lymph: No lymphadenopathy. Abdomen: No organomegaly. Extremities: No pedal edema. DIAGNOSTICS I have reviewed the recent vital signs and relevant test results. 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 Minimal cancerous cells in the lymphocyte compartment. No treatment required as it is stable. Discussed that most early-stage CLL patients do not need treatment. It is reassuring to see the PET scan without any evidence of significant lymphadenopathy or splenomegaly. - several additional tests have been ordered including a peripheral blood leukemia lymphoma phenotype, CLL fish panel, Ig VH mutation study, all of these are pending at this time. These will take approximately 2 weeks to result, and I will reach out to the patient to discuss the test results at thetime. - Monitor MBL on a yearly basis without active treatment - it is unlikely that the MBL is in any way contributing to the pure red cell aplasia or anemia at this time. He has had this since August 2021; and he has had a response to therapy with cyclosporin, which is likely ongoing at this time, and therefore nothing further from an MBL/CLL perspective needs to be done at this time. Pure Red Cell Aplasia Diagnosed in 2013 with markedly decreased erythropoiesis and undetectable reticulocyte count. Treated with cyclosporine since August 2015, achieving transfusion independence by January 2016. Recent decline in hemoglobin and reticulocyte count noted in July 2022. He has had an improvement in the ab solute reticulocyte count since initiation of cyclosporin again in August 2022. Although he has now recently become anemic again in August 2024, the absolute reticulocyte count is detectable, and is actually in the normal range, thereby arguing against significant pure red cell aplasia as etiology of the anemia. In addition, the bone marrow aspirate and biopsy from August 2024 does not show decrease in the erythropoietic precursor cells, suggesting that there might be an alternative etiologyfor the anemia. - Continue cyclosporine 125 mg twice daily - Order blood tests for iron, B12, folate, erythropoietin, and testosterone levels. I will reach out to the patient once I have these test results available. Given the decrease in the eGFR, if there is a low erythropoietin level, the patient may benefit from darbepoetin supplementation. - Monitor hemoglobin and reticulocyte count Chronic kidney disease Impaired kidney function likely exacerbated by cyclosporine use, with elevated creatinine levels. Discussed potential need for cyclosporine dose adjustment to balance kidney health and bone marrow function. - Monitor kidney function closely - Discuss potential cyclosporine dose adjustment with Dr. Lees [facility] Maintenance Routine health maintenance discussed. Colonoscopy at age 60 and recent negative Cologuard test. - Continue routine health screenings as recommended Follow-up - Order blood tests today - Schedule video or phone visit in two weeks to review test results - Coordinate follow-up with Dr. Lees in two weeks. EDUCATION: We discussed the diagnosis and treatment plan in detail. The patient expressed understanding of thecontent. No apparent learning barriers were identified. I personally spent over half of a total 60 minutes face to face with the patient in counseling and discussion and/or coordination of care as described above. [1] Current Outpatient Medications Medication Sig Dispense Refill aspirin 81 mg [...] mg) by mouth every day with food RPRISE BUSINESS ARCHITECT documented in this encounter Plan of Treatment Upcoming Encounters Date Type Department Care Team (Late st Contact Info) Description 12/11/2024 1:20 PM CDT Appointment Department of Laboratory Medicine in [address] [phone] Slava Lees M.D. [address] [place] [phone] 12/11/2024 2:30 PM CDT Infusion Department of Infusion Therapy in [address] [phone] Slava Lees M.D. [address] [place] [phone] 12/18/2024 12:00 PM CDT Appointment Department of Laboratory Medicine in [address] [phone] Slava Lees M.D. [address] [place] [phone] 12/25/2024 11:00 AM CDT Appointment Department of Laboratory Medicine in [address] [phone] Slava Lees M.D. [address] [place] [phone] 12/25/2024 12:00 PM CDT Infusion Department of Infusion Therapy in [address] [phone] Slava Lees M.D. [address] [place] [phone] 01/01/2025 11:10 AM CDT Appointment Department of Laboratory Medicine in [address] [phone] Slava Lees M.D. [address] [place] [phone] 01/08/2025 1:30 PM CDT Appointment Department of Laboratory Medicine in [address] [phone] Slava Lees M.D. [address] [place] [phone] 01/08/2025 2:30 PM CDT Infusion Department of Infusion Therapy in [address] [address] Slava Lees M.D. [address] [place] [phone] 01/15/2025 11:10 AM CDT Appointment Department of Laboratory Medicine in [address] [address] Slava Lees M.D. [address] [place] [phone] 01/22/2025 11:00 AM CDT Appointment Department of Laboratory Medicine in [address] [address] Slava Lees M.D. [address] [place] [phone] 01/22/2025 12:30 PM CDT Infusion Department of Infusion Therapy in [address] [address] Slava Lees M.D. [address] [place] [phone] 01/29/2025 11:10 AM CDT Appointment Department of Laboratory Medicine in [address] [phone] Slava Lees M.D. [address] [place] [phone] 02/05/2025 1:30 PM CDT Appointment Department of Laboratory Medicine in [address] [address] Slava Lees M.D. [address] [place] [phone] 02/05/2025 2:30 PM CDT Infusion Department of Infusion Therapy in [address] [phone] Slava Lees M.D. [address] [place] [phone] 02/12/2025 11:10 AM CDT Appointment Department of Laboratory Medicine in [address] [place] [address] Slava Lees M.D. [address] [place] [phone] 02/26/2025 11:10 AM CDT Appointment Department of Laboratory Medicine in [address] [phone] Slava Lees M.D. [address] [place] [phone] documented as of this encounter Results * Vitamin B12 Assay (10/31/2024 3:17 PM ENTERPRISE BUSINESS ARCHITECT) [facility] Vitamin B12 Assay, S 248 180 - 914 ng/L 11/03/2024 8:44 AM CDT DTL Comment: ----ADDITIONAL INFORMATION---- In patients being evaluated for vitamin B12 deficiency who have intrinsic factor blocking antibodies (IFBA), false elevations of B12 may occur due to IFBA interference thus potentially obscuring a physiological deficiency of B12. If observed B12 concentrations are discordant with clinical presentation, measurement of methylmalonic acid (MMA) should be considered. Blood (Blood, Venous) 10/31/2024 3:17 PM ENTERPRISE BUSINESS ARCHITECT 10/31/2024 3:54 PM ENTERPRISE BUSINESS ARCHITECT Frank Guardado LAB BLOOD ADD-ON Final Result [facility] [address] [place] [address], [place] DTL [facility] [address] [place] [address] * Soluble Transferrin Receptor (sTfR) (10/31/2024 3:17 PM ENTERPRISE BUSINESS ARCHITECT) Soluble Transferrin Receptor (sTfR) 3.6 1.8 - 4.6 mg/L 10/31/2024 4:21 PM ENTERPRISE BUSINESS ARCHITECT DTL Comment: ----ADDITIONAL INFORMATION---- It is reported that Americans may have slightly higher values. Blood (Blood, Venous) 10/31/2024 3:17 PM ENTERPRISE BUSINESS ARCHITECT 10/31/2024 3:54 PM ENTERPRISE BUSINESS ARCHITECT Frank OwensB.S. LAB BLOOD ADD-ON Final Result [facility] [address] [place] [address] * LD (Lactate Dehydrogenase) (10/31/2024 3:17 PM ENTERPRISE BUSINESS ARCHITECT) Pathologist [facility] Lactate Dehydrogenase (LD), S 152 122 - 222 U/L 10/31/2024 4:21 PM ENTERPRISE BUSINESS ARCHITECT DTL Blood (Blood, Venous) 10/31/2024 3:17 PM ENTERPRISE BUSINESS ARCHITECT 10/31/2024 3:54 PM ENTERPRISE BUSINESS ARCHITECT Frank OwensB.S. LAB BLOOD NON ADD-ON Fi nal Result [facility] [address] [facility] 200 [place] [address] * (ABNORMAL) Iron and Total Iron-Binding Capacity (10/31/2024 3:17 PM ENTERPRISE BUSINESS ARCHITECT) Pathologist [facility] Iron 221(H) 50 - 150 mcg/dL 10/31/2024 4:21 PM ENTERPRISE BUSINESS ARCHITECT DTL Total Iron Binding Capacity 229(L) 250 - 400 mcg/dL 10/31/2024 4:21 PM ENTERPRISE BUSINESS ARCHITECT DTL Percent Saturation >90(H) 14 - 50 % 10/31/2024 4:21 PM ENTERPRISE BUSINESS ARCHITECT DTL Blood (Blood, Venous) 10/31/2024 3:17 PM ENTERPRISE BUSINESS ARCHITECT 10/31/2024 3:54 PM ENTERPRISE BUSINESS ARCHITECT Frank GrayS. LAB BLOOD ADD-ON Final Result Performing Organization Address City/[facility]/ZIP Co de Phone Number [facility] [address] [place] [address] * Folate (10/31/2024 3:17 PM ENTERPRISE BUSINESS ARCHITECT) Pathologist [facility] Folate, S 17.2 >=4.0 mcg/L 11/03/2024 8:36 AM CDT DTL Blood (Blood, Venous) 10/31/2024 3:17 PM ENTERPRISE BUSINESS ARCHITECT 10/31/2024 3:54 PM ENTERPRISE BUSINESS ARCHITECT Frank Morin.S. LAB BLOOD ADD-ON Final Result Performing Organization Address [facility]/ZIP Co de Phone Number [facility] [address] [place] [address] * (ABNORMAL) Ferritin (10/31/2024 3:17 PM ENTERPRISE BUSINESS ARCHITECT) Pathologist [facility] Ferritin, S 2910(H) 31 - 409 mcg/L 10/31/2024 4:41 PM ENTERPRISE BUSINESS ARCHITECT DTL Blood (Blood, Venous) 10/31/2024 3:17 PM ENTERPRISE BUSINESS ARCHITECT 10/31/2024 3:54 PM ENTERPRISE BUSINESS ARCHITECT Frank Morin.S. LAB BLOOD ADD-ON Final Result [facility] [address] [place] [address] * Bilirubin, Total (10/31/2024 3:17 PM ENTERPRISE BUSINESS ARCHITECT) Bilirubin, Total, S 1.1 0.0 - 1.2 mg/dL 10/31/2024 4:21 PM ENTERPRISE BUSINESS ARCHITECT DT Blood (Blood, Venous) 10/31/2024 3:17 PM ENTERPRISE BUSINESS ARCHITECT 10/31/2024 3:54 PM ENTERPRISE BUSINESS ARCHITECT Frank Morin.S. LAB BLOOD ADD-ON Final Result [facility] [address] [place] [address], [facility] 200 [place] [address] * Bilirubin, Direct (10/31/2024 3:17 PM ENTERPRISE BUSINESS ARCHITECT) Pathologist [facility] Bilirubin, Direct, S 0.3 0.0 - 0.3 mg/dL 10/31/2024 4:21 PM ENTERPRISE BUSINESS ARCHITECT [facility] Blood (Blood, Venous) 10/31/2024 3:17 PM ENTERPRISE BUSINESS ARCHITECT 10/31/2024 3:54 PM ENTERPRISE BUSINESS ARCHITECT Frank Morin.S. LAB BLOOD ADD-ON Final Result Performing Organization Address City/[facility] Co de Phone Number [facility] 200 [place] [address], [facility] 200 [place] [address] * (ABNORMAL) Erythropoietin (EPO) (10/31/2024 3:16 PM ENTERPRISE BUSINESS ARCHITECT) Erythropoietin (EPO), S 144(H) 2.6 - 18.5 mIU/mL 11/01/2024 9:05 AM ENTERPRISE BUSINESS ARCHITECT [facility] Blood (Blood, Venous) 10/31/2024 3:16 PM ENTERPRISE BUSINESS ARCHITECT 11/01/2024 7:58 AM ENTERPRISE BUSINESS ARCHITECT Frank GrayS. LAB BLOOD ADD-ON Final Result Performing Organization Address City/[facility]/ZIP Co de Phone Number [facility] [address] [place] [address] [facility] [address] [place] [address] * Testosterone, Total, Bioavailable, and Free (10/31/2024 3:16 PM ENTERPRISE BUSINESS ARCHITECT) [facility] Testosterone, Bioavailable, S 20 ng/dL 11/05/2024 9:14 PM [facility] Comment: ----REFERENCE VALUE---- Reference values have not been established for patients who are greater than 70 years of age. ----ADDITIONAL INFORMATION---- Testing performed by Liquid Chromatography-Tandem Mass Spectrometry (LC-MS/MS). This test was developed and its performance characteristics determined by [facility] in a manner consistent with CLIA requirements. This test has not been cleared or approved by the U.S. Food and Drug Administration. Testosterone, Total by Mass Spectrometry, Serum 622 240 - 950 ng/dL 11/04/2024 1:07 PM [facility] Comment: ----ADDITIONAL INFORMATION---- Testing performed by Liquid Chromatography-Tandem Mass Spectrometry (LC-MS/MS). This test was developed and its performance characteristics determined by [facility] in a manner consistent with CLIA requirements. This test has not been cleared or approved by the U.S. Food and Drug Administration. Testosterone, Free, S 6.75 3.28 - 12.2 ng/dL 11/04/2024 6:21 PM [facility] Comment: ----ADDITIONAL INFORMATION---- This test was developed and its performance characteristics determined by [facility] in a manner consistent with CLIA requirements. This test has not been cleared or approved by the U.S. Food and Drug Administration. Blood (Blood, Venous) 10/31/2024 3:16 PM ENTERPRISE BUSINESS ARCHITECT 11/01/2024 7:17 AM ENTERPRISE BUSINESS ARCHITECT us Frank Guardado LAB BLOOD NON ADD-ON Fi nal Result Performing Organization Address City/[facility]/ZIP Co de Phone Number [facility] [address] [place] [address] [facility] [address] [place] [address] [place] [address] * Haptoglobin (10/31/2024 3:16 PM ENTERPRISE BUSINESS ARCHITECT) Pathologist [facility] Haptoglobin, S 112 30 - 200 mg/dL 10/31/2024 8:07 PM ENTERPRISE BUSINESS ARCHITECT [facility] Blood (Blood, Venous) 10/31/2024 3:16 PM ENTERPRISE BUSINESS ARCHITECT 10/31/2024 6:17 PM ENTERPRISE BUSINESS ARCHITECT Frank GrayS. LAB BLOOD ADD-ON Final Result Performing Organization Address [facility] Co de Phone Number [facility] [address] [place] [address] [facility] [address] [place] [address] * Copper (10/31/2024 3:16 PM ENTERPRISE BUSINESS ARCHITECT) Pathologist [facility] Copper, S 120 73 - 129 mcg/dL 11/01/2024 11:26 AM ENTERPRISE BUSINESS ARCHITECT [facility] Comment: ----ADDITIONAL INFORMATION---- This test was developed and its performance characteristics determined by [facility] in a manner consistent with CLIA requirements. This test has not been cleared or approved by the U.S. Food and Drug Administration. Blood (Blood, Venous) 10/31/2024 3:16 PM ENTERPRISE BUSINESS ARCHITECT 10/31/2024 8:50 PM ENTERPRISE BUSINESS ARCHITECT Frank GrayS. LAB BLOOD NON ADD-ON Fi nal Result Performing Organization Address City/[facility]/ZIP Co de Phone Number [facility] [address] [place] [address] [facility] [address] [place] [address] [place] [address] * (ABNORMAL) Morphology Eval (special smear) (10/31/2024 3:16 PM ENTERPRISE BUSINESS ARCHITECT) Pathologist [facility] Neutrophilic Segs and Bands 59 50 - 75 % 10/31/2024 5:35 PM ENTERPRISE BUSINESS ARCHITECT [facility] Lymphocytes 23 18 - 42 % 10/31/2024 5:35 PM ENTERPRISE BUSINESS ARCHITECT [facility] Monocytes 17(H) 2 - 11 % 10/31/2024 5:35 PM ENTERPRISE BUSINESS ARCHITECT [facility] Eosinophils 1 1 - 3 % 10/31/2024 5:35 PM ENTERPRISE BUSINESS ARCHITECT [facility] Interpretation See Comment 5:35 PM ENTERPRISE BUSINESS ARCHITECT [facility] Comment:See leukemia/lymphom a phenotype report Reviewed by: Bernard 10/31/2024 5:35 PM ENTERPRISE BUSINESS ARCHITECT [facility] Blood (Blood, Venous) 10/31/2024 3:16 PM ENTERPRISE BUSINESS ARCHITECT 10/31/2024 3:35 PM ENTERPRISE BUSINESS ARCHITECT Frank Guardado LAB BLOOD ADD-ON Final Result [facility] [address] [place] [address], [facility] [address] [place] [address] documented in this encounter Visit Diagnoses Diagnosis 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
--- OUTSIDE RECORDS SUMMARY | 2024-12-05 20:54 | XMS_ITS | Encounter Summary ---
Author Organization [facility] Address [address] [place] [address] Care Team Providers Care Education Manager Name Role Phone Elsewhere, Pcp Primary Care Provider Unavailabl e Encounter Details Date Type Department Care Team (Late st Contact Info) Description 11/03/2024 Clinical Communication Division of Hematology in [place], [place] [address] [place] [address] Frank Bowen M.B.B.S. [address] [place] [address] Social History Tobacco Use Types Packs/Day Years [...] Recorded In the past 12 months has [employer], gas, oil, or water [employer] threatened to shut off services in your [...] your living situation today? I have a [facility] place to live 04/10/2024 Sex and Gender Information Value Date Recorded Sex Assigned at Male 03/26/2023 7:11 AM CDT Legal Sex Male 7:47 PM RUG WASHER Gender Identity Male 08/12/2018 1:39 PM RUG WASHER Sexual Orientation Straight 08/12/2018 1: 39 PM RUG WASHER documented as of this encounter Plan of Treatment Upcoming Encounters Date Type Department Care Team (Late st Contact Info) Description 12/11/2024 1:20 PM CDT Appointment Department of Laboratory Medicine in [address] [address] Slava Lees M.D. [address] [place] [phone] 12/11/2024 2:30 PM CDT Infusion Department of Infusion Therapy in [address] [address] Slava Lees M.D. [address] [place] [phone] 12/18/2024 12:00 PM CDT Appointment Department of Laboratory Medicine in [address] [address] Slava Lees M.D. [address] [place] [phone] 12/25/2024 11:00 AM CDT Appointment Department of Laboratory Medicine in [address] [address] Slava Lees M.D. [address] [place] [phone] 12/25/2024 12:00 PM CDT Infusion Department of Infusion Therapy in [address] [address] Slava Lees M.D. [address] [place] [phone] 01/01/2025 11:10 AM CDT Appointment Department of Laboratory Medicine in [address] [address] Slava Lees M.D. [address] [place] [phone] 01/08/2025 1:30 PM CDT Appointment Department of Laboratory Medicine in [address] [address] Slava Lees M.D. [address] [place] [phone] 01/08/2025 2:30 PM CDT Infusion Department of Infusion Therapy in [address] [address] Slava Lees M.D. [address] [place] [phone] 01/15/2025 11:10 AM CDT Appointment Department of Laboratory Medicine in [address] [address] Slava Lees M.D. [address] [place] [phone] 01/22/2025 11:00 AM CDT Appointment Department of Laboratory Medicine in [address] [address] Slava Lees M.D. [address] [place] [phone] 01/22/2025 12:30 PM CDT Infusion Department of Infusion Therapy in [address] [address] Slava Lees M.D. [address] [place] [phone] 01/29/2025 11:10 AM CDT Appointment Department of Laboratory Medicine in [address] [phone] Slava Lees M.D. [address] [place] [phone] 02/05/2025 1:30 PM CDT Appointment Department of Laboratory Medicine in [address] [address] Slava Lees M.D. [address] [place] [phone] 02/05/2025 2:30 PM CDT Infusion Department of Infusion Therapy in [address] [address] Slava Lees M.D. [address] [place] [phone] 02/12/2025 11:10 AM CDT Appointment Department of Laboratory Medicine in [address] [address] Slava Lees M.D. [address] [place] [phone] 02/26/2025 11:10 AM CDT Appointment Department of Laboratory Medicine in [address] [address] Slava Lees M.D. [address] [place] [phone] documented as of this encounter Visit Diagnoses Diagnosis Myelofibrosis (HCC)- Primary documented in this encounter Care Teams Education Manager Relationship Specialty Start Date End Date Elsewhere, Pcp PCP - General Internal Medicine 07/16/23 documented as of this encounter
--- OUTSIDE RECORDS SUMMARY | 2024-12-05 20:54 | XMS_ITS | Encounter Summary ---
Author Organization [facility] Address [address] [place] [id number] Care Team Providers Care Blind Cleaner Name Role Phone Elsewhere, Pcp Primary Care Provider Unavailabl e Reason for Visit * Reason Onset Date Comments Upcoming lab appts 10/17/2024 Encounter Details Date Type Department Care Team (Latest Contact Info) Description 10/17/2024 Clinical Communication Division of Hematology in [place], [place] [address] [place] [address] Slava Lees M.D. [address] [place] [address] Upcoming lab appts Social History Tobacco Use Types Packs/Day Years Used Date Smoking Tobacco: Former Cigarettes 1 4.4 0 11/25/1969 - 04/02/1974 Passive Smoke Exposure: Past Smokeless Tobacco: Never Comments: service ti me only Passive Exposure Comments:Dad When I was growing up & in the Service Alcohol Use Standard Drinks/Week Comments Yes 5 (1 standard drink = 0.6 oz pur e alcohol) [facility] Utilities Answer Date Recorded In the [...] your living situation today? I have a [facility] place to live 04/10/2024 Sex and Gender Information Value Date Recorded Sex Assigned at Male 03/26/2023 7:11 AM CDT Legal Sex Male 7:47 PM MENAGERIE CARETAKER Gender Identity Male 08/12/2018 1:39 PM MENAGERIE CARETAKER Sexual Orientation Straight 08/12/2018 1: 39 PM MENAGERIE CARETAKER documented as of this encounter Plan of Treatment Upcoming Encounters Date Type Department Care Team (Late st Contact Info) Description 12/11/2024 1:20 PM CDT Appointment Department of Laboratory Medicine in [address] [address] Slava Lees M.D. [address] [place] [phone] 12/11/2024 2:30 PM CDT Infusion Department of Infusion Therapy in [address] [address] Slava Lees M.D. [address] [place] [phone] 12/18/2024 12:00 PM CDT Appointment Department of Laboratory Medicine in [address] [address] Slava Lees M.D. [address] [place] [phone] 12/25/2024 11:00 AM CDT Appointment Department of Laboratory Medicine in [address] [address] Slava Lees M.D. [address] [place] [phone] 12/25/2024 12:00 PM CDT Infusion Department of Infusion Therapy in [address] [address] Slava Lees M.D. [address] [place] [phone] 01/01/2025 11:10 AM CDT Appointment Department of Laboratory Medicine in [address] [address] Slava Lees M.D. [address] [place] [phone] 01/08/2025 1:30 PM CDT Appointment Department of Laboratory Medicine in [address] [address] Slava Lees M.D. [address] [place] [phone] 01/08/2025 2:30 PM CDT Infusion Department of Infusion Therapy in [address] [address] Slava Lees M.D. [address] [place] [phone] 01/15/2025 11:10 AM CDT Appointment Department of Laboratory Medicine in [address] [address] Slava Lees M.D. [address] [place] [phone] 01/22/2025 11:00 AM CDT Appointment Department of Laboratory Medicine in [address] [address] Slava Lees M.D. [address] [place] [phone] 01/22/2025 12:30 PM CDT Infusion Department of Infusion Therapy in [address] [address] Slava Lees M.D. [address] [place] [phone] 01/29/2025 11:10 AM CDT Appointment Department of Laboratory Medicine in [address] [address] Slava Lees M.D. [address] [place] [phone] 02/05/2025 1:30 PM CDT Appointment Department of Laboratory Medicine in [address] [address] Slava Lees M.D. [address] [place] [phone] 02/05/2025 2:30 PM CDT Infusion Department of Infusion Therapy in [address] [address] Slava Lees M.D. [address] [place] [phone] 02/12/2025 11:10 AM CDT Appointment Department of Laboratory Medicine in [address] [address] Slava Lees M.D. [address] [place] [phone] 02/26/2025 11:10 AM CDT Appointment Department of Laboratory Medicine in [address] [address] Slava Lees M.D. [address] [place] [phone] documented as of this encounter Visit Diagnoses Not on filedocumented in this encounter Care Teams Blind Cleaner Relationship Specialty Start Date End Date Elsewhere, Pcp PCP - General Internal Medicine 07/16/23 documented as of this encounter
--- OUTSIDE RECORDS SUMMARY | 2024-12-05 20:54 | XMS_ITS | Encounter Summary ---
Author Organization [facility] Address [address] [place] [address] Care Team Providers Care Governor Assembler Name Role Phone Elsewhere, Pcp Primary Care Provider Unavailabl e Encounter Details Date Type Department Care Team (Latest Contact Info) Description 10/31/2024 3:08 PM IT SECURITY CONSULTING DIRECTOR - 10/31/2024 11:59 PM IT SECURITY CONSULTING DIRECTOR Hospital Encounter Department of Laboratory Medicine and Pathology, [facility], in [place], [place] [address] [place] [address] Frank Bowen M.B.B.S. 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 I have a [facility] place to live 04/10/2024 Sex and Gender Information Value Date Recorded Sex Assigned at Male 03/26/2023 7:11 AM CDT Legal Sex Male 7:47 PM IT SECURITY CONSULTING DIRECTOR Gender Identity Male 08/12/2018 1:39 PM IT SECURITY CONSULTING DIRECTOR Sexual Orientation Straight 08/12/2018 1: 39 PM IT SECURITY CONSULTING DIRECTOR documented as of this encounter Medications at [...] CDT Appointment Department of Laboratory Medicine in [address] [phone] Slava Lees M.D. [address] [place] [phone] 12/11/2024 2:30 PM CDT Infusion Department of Infusion Therapy in [address] [address] Slava Lees M.D. [address] [place] [phone] 12/18/2024 12:00 PM CDT Appointment Department of Laboratory Medicine in [address] [address] Slava Lees M.D. [address] [place] [phone] 12/25/2024 11:00 AM CDT Appointment Department of Laboratory Medicine in [address] [phone] Slaav Lees M.D. [address] [place] [phone] 12/25/2024 12:00 PM CDT Infusion Department of Infusion Therapy in [address] [address] Slava Lees M.D. [address] [place] [phone] 01/01/2025 11:10 AM CDT Appointment Department of Laboratory Medicine in [address] [address] Slava Lees M.D. [address] [place] [phone] 01/08/2025 1:30 PM CDT Appointment Department of Laboratory Medicine in [address] [address] Slava Lees M.D. [address] [place] [phone] 01/08/2025 2:30 PM CDT Infusion Department of Infusion Therapy in [address] [address] Slava Lees M.D. [address] [place] [phone] 01/15/2025 11:10 AM CDT Appointment Department of Laboratory Medicine in [address] [address] Slava Lees M.D. [address] [place] [phone] 01/22/2025 11:00 AM CDT Appointment Department of Laboratory Medicine in [address] [address] Slava Lees M.D. [address] [place] [phone] 01/22/2025 12:30 PM CDT Infusion Department of Infusion Therapy in [address] [address] Slava Lees M.D. [address] [place] [phone] 01/29/2025 11:10 AM CDT Appointment Department of Laboratory Medicine in [address] [address] Slava Lees M.D. [address] [place] [phone] 02/05/2025 1:30 PM CDT Appointment Department of Laboratory Medicine in [address] [address] Slava Lees M.D. [address] [place] [phone] 02/05/2025 2:30 PM CDT Infusion Department of Infusion Therapy in [address] [address] Slava Lees M.D. [address] [place] [phone] 02/12/2025 11:10 AM CDT Appointment Department of Laboratory Medicine in [address] [phone] Slava Lees M.D. [address] [place] [address] 02/26/2025 11:10 AM CDT Appointment Department of Laboratory Medicine in [address] [phone] Slava Lees M.D. 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 LACTATE DEHYDROGENASE (LD), S Routine 10/31/2024 3:17 PM IT SECURITY CONSULTING DIRECTOR 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) Aplasia Red Cell (HCC) 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 FOLATE, S Routine 10/31/2024 3:17 PM IT SECURITY CONSULTING DIRECTOR 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) Aplasia Red Cell (HCC) 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 FERRITIN, S Routine 10/31/2024 3:17 PM IT SECURITY CONSULTING DIRECTOR 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) Aplasia Red Cell (HCC) 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 VITAMIN B12 ASSAY, S Routine 10/31/2024 3:17 PM IT SECURITY CONSULTING DIRECTOR 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) Aplasia Red Cell (HCC) 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 BILIRUBIN DIRECT, S/P Routine 10/31/2024 3:17 PM IT SECURITY CONSULTING DIRECTOR 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) Aplasia Red Cell (HCC) 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 BILIRUBIN, TOT, S/P Routine 10/31/2024 3 :17 PM IT SECURITY CONSULTING DIRECTOR 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) Aplasia Red Cell (HCC) 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 SPSMA RESULT Routine 10/31/2024 3:16 PM IT SECURITY CONSULTING DIRECTOR 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) Aplasia Red Cell (HCC) 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 TESTOSTERONE, TOT, BIOAVAILABLE, AND FREE, S Routine 10/31/2024 3:16 PM IT SECURITY CONSULTING DIRECTOR 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) Aplasia Red Cell (HCC) 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 ERYTHROPOIETIN (EPO), S Routine 10/31/2024 3:16 PM IT SECURITY CONSULTING DIRECTOR 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) Aplasia Red Cell (HCC) 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 COPPER, S Routine 10/31/2024 3:16 PM IT SECURITY CONSULTING DIRECTOR 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) Aplasia Red Cell (HCC) 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 HAPTOGLOBIN, S Routine 10/31/2024 3:16 PM IT SECURITY CONSULTING DIRECTOR 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) Aplasia Red Cell (HCC) 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 documented in this encounter Results * Direct Antiglobulin Test (Polyspecific) (10/31/2024 3:17 PM IT SECURITY CONSULTING DIRECTOR) Direct Antiglobulin Test, Polyspecific Negative Negative 10/31/2024 4:33 PM IT SECURITY CONSULTING DIRECTOR DTL Blood 10/31/2024 3:17 PM IT SECURITY CONSULTING DIRECTOR 10/31/2024 3:39 PM IT SECURITY CONSULTING DIRECTOR Frank GraySMilla LAB BLOOD BANK TEST ORD ERABLES Final Result Performing Organization Address [facility] de Phone Number [facility] [address] [facility] 200 [place] [address] * Vitamin B12 Assay (10/31/2024 3:17 PM IT SECURITY CONSULTING DIRECTOR) [facility] [place] [facility] Vitamin B12 Assay, S 248 180 [...] considered. Blood (Blood, Venous) 10/31/2024 3:17 PM IT SECURITY CONSULTING DIRECTOR 10/31/2024 3:54 PM IT SECURITY CONSULTING DIRECTOR Frank GraySMilla LAB BLOOD ADD-ON Final Result Performing Organization Address [facility] de Phone Number [facility] [address] [facility] [address] [place] [address] * Soluble Transferrin Receptor (sTfR) (10/31/2024 3:17 PM IT SECURITY CONSULTING DIRECTOR) [facility] [place] [facility] Soluble Transferrin Receptor (sTfR) 3.6 1.8 - 4.6 mg/L 10/31/2024 4:21 PM IT SECURITY CONSULTING DIRECTOR DT Comment: ----ADDITIONAL INFORMATION---- It is reported that Americans may have slightly higher values. Blood (Blood, Venous) 10/31/2024 3:17 PM IT SECURITY CONSULTING DIRECTOR 10/31/2024 3:54 PM IT SECURITY CONSULTING DIRECTOR Frank GrayS. LAB BLOOD ADD-ON Final Result Performing Organization Address City/[facility]/ZIP Co de Phone Number [facility] [address] 200 [place] [address] * LD (Lactate Dehydrogenase) (10/31/2024 3:17 PM IT SECURITY CONSULTING DIRECTOR) Lactate Dehydrogenase (LD), S 152 122 - 222 U/L 10/31/2024 4:21 PM IT SECURITY CONSULTING DIRECTOR DTL Blood (Blood, Venous) 10/31/2024 3:17 PM IT SECURITY CONSULTING DIRECTOR 10/31/2024 3:54 PM IT SECURITY CONSULTING DIRECTOR Frank Morin.S. LAB BLOOD NON ADD-ON Fi nal Result Performing Organization Address [facility] Co de Phone Number [facility] [address] 200 [place] [address] * (ABNORMAL) Iron and Total Iron-Binding Capacity (10/31/2024 3:17 PM IT SECURITY CONSULTING DIRECTOR) Iron 221(H) 50 - 150 mcg/dL 10/31/2024 4:21 PM IT SECURITY CONSULTING DIRECTOR DTL Total Iron Binding Capacity 229(L) 250 - 400 mcg/dL 10/31/2024 4:21 PM IT SECURITY CONSULTING DIRECTOR DTL Percent Saturation >90(H) 14 - 50 % 10/31/2024 4:21 PM IT SECURITY CONSULTING DIRECTOR DTL Blood (Blood, Venous) 10/31/2024 3:17 PM IT SECURITY CONSULTING DIRECTOR 10/31/2024 3:54 PM IT SECURITY CONSULTING DIRECTOR Frank GrayS. LAB BLOOD ADD-ON Final Result Performing Organization Address City/[facility]/ZIP Co de Phone Number [facility] [address] 200 [place] [address] * Folate (10/31/2024 3:17 PM IT SECURITY CONSULTING DIRECTOR) Pathologist [facility] Folate, S 17.2 >=4.0 mcg/L 11/03/2024 8: 36 AM CDT DTL Blood (Blood, Venous) 10/31/2024 3:17 PM IT SECURITY CONSULTING DIRECTOR 10/31/2024 3:54 PM IT SECURITY CONSULTING DIRECTOR Frank OwensB.S. LAB BLOOD ADD-ON Final Result [facility] [address] 200 [place] [address] * (ABNORMAL) Ferritin (10/31/2024 3:17 PM IT SECURITY CONSULTING DIRECTOR) [facility] [place] [facility] Ferritin, S 2910(H) 31 - 409 mcg/L 10/31/2024 4:41 PM IT SECURITY CONSULTING DIRECTOR DTL Blood (Blood, Venous) 10/31/2024 3:17 PM IT SECURITY CONSULTING DIRECTOR 10/31/2024 3:54 PM IT SECURITY CONSULTING DIRECTOR Frank OwensB.S. LAB BLOOD ADD-ON Final Result [facility] [address] [place] [address] * Bilirubin, Total (10/31/2024 3:17 PM IT SECURITY CONSULTING DIRECTOR) [facility] [place] [facility] Bilirubin, Total, S 1.1 0.0 - 1.2 mg/dL 10/31/2024 4:21 PM IT SECURITY CONSULTING DIRECTOR DTL Blood (Blood, Venous) 10/31/2024 3:17 PM IT SECURITY CONSULTING DIRECTOR 10/31/2024 3:54 PM IT SECURITY CONSULTING DIRECTOR Frank Morin.S. LAB BLOOD ADD-ON Final Result [facility] [address] 200 [place] [address] * Bilirubin, Direct (10/31/2024 3:17 PM IT SECURITY CONSULTING DIRECTOR) Pathologist [facility] Bilirubin, Direct, S 0.3 0.0 - 0.3 mg/dL 10/31/2024 4:21 PM IT SECURITY CONSULTING DIRECTOR [facility] Blood (Blood, Venous) 10/31/2024 3:17 PM IT SECURITY CONSULTING DIRECTOR 10/31/2024 3:54 PM IT SECURITY CONSULTING DIRECTOR Frank Morin.S. LAB BLOOD ADD-ON Final Result Performing Organization Address City/[facility] Co de Phone Number [facility] [address] 200 [place] [address] * (ABNORMAL) Erythropoietin (EPO) (10/31/2024 3:16 PM IT SECURITY CONSULTING DIRECTOR) [facility] [place] [facility] Erythropoietin (EPO), S 144(H) 2.6 - 18.5 mIU/mL 11/01/2024 9:05 AM IT SECURITY CONSULTING DIRECTOR [facility] Blood (Blood, Venous) 10/31/2024 3:16 PM IT SECURITY CONSULTING DIRECTOR 11/01/2024 7:58 AM IT SECURITY CONSULTING DIRECTOR Frank Morin.S. LAB BLOOD ADD-ON Final Result [facility] [address] [place] [address] [facility] [address] [place] [address] * Testosterone, Total, Bioavailable, and Free (10/31/2024 3:16 PM IT SECURITY CONSULTING DIRECTOR) Pathologist [facility] Testosterone, Bioavailable, S 20 ng/dL 11/05/2024 9:14 PM [facility] Comment: ----REFERENCE VALUE---- Reference values have not been established for patients who are greater than 70 years of age. ----ADDITIONAL INFORMATION---- Testing performed by Liquid Chromatography-Tandem Mass Spectrometry (LC-MS/MS). This test was developed and its performance characteristics determined by [facility] in a manner consistent with CLIA requirements. This test has not been cleared or approved by the U.S. Food and Drug Administration. Testosterone, Total by Mass Spectrometry, Serum 622 240 - 950 ng/dL 11/04/2024 1:07 PM [facility] Comment: ----ADDITIONAL INFORMATION---- Testing performed by Liquid Chromatography-Tandem Mass Spectrometry (LC-MS/MS). This test was developed and its performance characteristics determined by [facility] in a manner consistent with CLIA requirements. This test has not been cleared or approved by the U.S. Food and Drug Administration. Testosterone, Free, S 6.75 3.28 - 12.2 ng/dL 11/04/2024 6:21 PM [facility] Comment: ----ADDITIONAL INFORMATION---- This test was developed and its performance characteristics determined by [facility] in a manner consistent with CLIA requirements. This test has not been cleared or approved by the U.S. Food and Drug Administration. Blood (Blood, Venous) 10/31/2024 3:16 PM IT SECURITY CONSULTING DIRECTOR 11/01/2024 7:17 AM IT SECURITY CONSULTING DIRECTOR Frank Guardado LAB BLOOD NON ADD-ON Fi nal Result [facility] [address] [place] [address] [facility] [address] [place] [address] [place] [address] * Haptoglobin (10/31/2024 3:16 PM IT SECURITY CONSULTING DIRECTOR) Haptoglobin, S 112 30 - 200 mg/dL 10/31/2024 8:07 PM [facility] Blood (Blood, Venous) 10/31/2024 3:16 PM IT SECURITY CONSULTING DIRECTOR 10/31/2024 6:17 PM IT SECURITY CONSULTING DIRECTOR Frank Guardado LAB BLOOD ADD-ON Final Result Performing Organization Address [facility] Co de Phone Number [facility] [address] [place] [address] [facility] [address] [place] [address] * Copper (10/31/2024 3:16 PM IT SECURITY CONSULTING DIRECTOR) Pathologist [facility] Copper, S 120 73 - 129 mcg/dL 11/01/2024 11:26 AM IT SECURITY CONSULTING DIRECTOR [facility] Comment: ----ADDITIONAL INFORMATION---- This test was developed and its performance characteristics determined by [facility] in a manner consistent with CLIA requirements. This test has not been cleared or approved by the U.S. Food and Drug Administration. Blood (Blood, Venous) 10/31/2024 3:16 PM IT SECURITY CONSULTING DIRECTOR 10/31/2024 8:50 PM IT SECURITY CONSULTING DIRECTOR Frank Guardado LAB BLOOD NON ADD-ON Fi nal Result Performing Organization Address [facility] Co de Phone Number [facility] [address] [place] [address] [place] [address] [place] [address] * (ABNORMAL) Morphology Eval (special smear) (10/31/2024 3:16 PM IT SECURITY CONSULTING DIRECTOR) Pathologist [facility] Neutrophilic Segs and Bands 59 50 - 75 % 10/31/2024 5:35 PM IT SECURITY CONSULTING DIRECTOR [facility] Lymphocytes 23 18 - 42 % 10/31/2024 5:35 PM IT SECURITY CONSULTING DIRECTOR [facility] Monocytes 17(H) 2 - 11 % 10/31/2024 5:35 PM IT SECURITY CONSULTING DIRECTOR [facility] Eosinophils 1 1 - 3 % 10/31/2024 5:35 PM IT SECURITY CONSULTING DIRECTOR [facility] Interpretation See Comment 5:35 PM IT SECURITY CONSULTING DIRECTOR [facility] Comment:See leukemia/lymphom a phenotype report Reviewed by: Tech 10/31/2024 5:35 PM IT SECURITY CONSULTING DIRECTOR [facility] Blood (Blood, Venous) 10/31/2024 3:16 PM IT SECURITY CONSULTING DIRECTOR 10/31/2024 3:35 PM IT SECURITY CONSULTING DIRECTOR us Frank Guardado LAB BLOOD ADD-ON Final Result [facility] [address] [place] [address], [facility] [address] [place] [address] documented in this encounter Visit Diagnoses Diagnosis 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
--- OUTSIDE RECORDS SUMMARY | 2024-12-05 20:54 | XMS_ITS | Encounter Summary ---
Author Organization [facility] Address [address] [place] [address] Care Team Providers Care Obiee Lead Developer Name Role Phone Elsewhere, Pcp Primary Care Provider Unavailabl e Encounter Details Date Type Department Care Team (Late st Contact Info) Description 11/06/2024 Orders Only Division of Hematology in [place], [place] [address] [place] [address] Slava Lees M.D. [address] [place] [address] Myelofibrosis (HCC) (Primary Dx) Social History Tobacco Use Types Packs/Day Years Used Date Smoking Tobacco: Former Cigarettes 1 4.4 0 11/25/1969 - 04/02/1974 Passive Smoke Exposure: Past Smokeless Tobacco: Never Comments: service ti me only Passive Exposure Comments:Dad When I was growing up & in the Service Alcohol Use Standard Drinks/Week Comments Yes 5 (1 standard drink = 0.6 oz pur e alcohol) [facility] Utilities Answer Date Recorded In the past 12 months has [employer], gas, oil, or water [employer] [place] threatened to shut off services in your [...] your living situation today? I have a [facility] place to live 04/10/2024 Sex and Gender Information Value Date Recorded Sex Assigned at Male 03/26/2023 7:11 AM CDT Legal Sex Male 7:47 PM BOILERS INSPECTOR Gender Identity Male 08/12/2018 1:39 PM BOILERS INSPECTOR Sexual Orientation Straight 08/12/2018 1: 39 PM BOILERS INSPECTOR documented as of this encounter Plan of Treatment Upcoming Encounters Date Type Department Care Team (Late st Contact Info) Description 12/11/2024 1:20 PM CDT Appointment Department of Laboratory Medicine in [address] [phone] Slava Lees M.D. [address] [place] [phone] 12/11/2024 2:30 PM CDT Infusion Department of Infusion Therapy in [address] [address] Slava Lees M.D. [address] [place] [phone] 12/18/2024 12:00 PM CDT Appointment Department of Laboratory Medicine in [address] [address] Slava Lees M.D. [address] [place] [phone] 12/25/2024 11:00 AM CDT Appointment Department of Laboratory Medicine in [address] [address] Slava Lees M.D. [address] [place] [phone] 12/25/2024 12:00 PM CDT Infusion Department of Infusion Therapy in [address] [address] Slava Lees M.D. [address] [place] [phone] 01/01/2025 11:10 AM CDT Appointment Department of Laboratory Medicine in [address] [address] Slava Lees M.D. [address] [place] [phone] 01/08/2025 1:30 PM CDT Appointment Department of Laboratory Medicine in [address] [address] Slava Lees M.D. [address] [place] [phone] 01/08/2025 2:30 PM CDT Infusion Department of Infusion Therapy in [address] [address] Slava Lees M.D. [address] [place] [phone] 01/15/2025 11:10 AM CDT Appointment Department of Laboratory Medicine in [address] [address] Slava Lees M.D. [address] [place] [phone] 01/22/2025 11:00 AM CDT Appointment Department of Laboratory Medicine in [address] [address] Slava Lees M.D. [address] [place] [phone] 01/22/2025 12:30 PM CDT Infusion Department of Infusion Therapy in [address] [address] Slava Lees M.D. [address] [place] [phone] 01/29/2025 11:10 AM CDT Appointment Department of Laboratory Medicine in [address] [address] Slava Lees M.D. [address] [place] [phone] 02/05/2025 1:30 PM CDT Appointment Department of Laboratory Medicine in [address] [phone] Slava Lees M.D. [address] [place] [phone] 02/05/2025 2:30 PM CDT Infusion Department of Infusion Therapy in [address] [address] Slava Lees M.D. [address] [place] [phone] 02/12/2025 11:10 AM CDT Appointment Department of Laboratory Medicine in [address] [phone] Slava Lees M.D. [address] [place] [phone] 02/26/2025 11:10 AM CDT Appointment Department of Laboratory Medicine in [address] [phone] Slava Lees M.D. [address] [place] [phone] documented as of this encounter Visit Diagnoses Diagnosis Myelofibrosis (HCC)- Primary documented in this encounter Care Teams Obiee Lead Developer Relationship Specialty Start Date End Date Elsewhere, Pcp PCP - General Internal Medicine 07/16/23 documented as of this encounter
--- OUTSIDE RECORDS SUMMARY | 2024-12-05 20:54 | XMS_ITS | Encounter Summary ---
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 [address] [place] [address] Phone: tel: fax: [facility] Referral ID Status Reason Start Date Expiration Date Visits Re quested Visits Authorized [id number] Closed 10/16/2024 01/16/2026 1 1 Encounter Details Date Type Department Care Team (Latest Contact Info) Description 10/31/2024 8:26 AM ELIGIBILITY SERVICES REPRESENTATIVE - 10/31/2024 3:07 PM ELIGIBILITY SERVICES REPRESENTATIVE Hospital Encounter Department of Radiology, [facility], in [place], [place] [address] [place] [address] Slava Lees M.D. 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 I have a [facility] place to live 04/10/2024 Sex and Gender Information Value Date Recorded Sex Assigned at Male 03/26/2023 7:11 AM CDT Legal Sex Male 7:47 PM ELIGIBILITY SERVICES REPRESENTATIVE Gender Identity Male 08/12/2018 1:39 PM ELIGIBILITY SERVICES REPRESENTATIVE Sexual Orientation Straight 08/12/2018 1: 39 PM ELIGIBILITY SERVICES REPRESENTATIVE documented as of this encounter [...] Appointment Department of Laboratory Medicine in [address] [address] Slava Lees M.D. [address] [place] [phone] 12/11/2024 2:30 PM CDT Infusion Department of Infusion Therapy in [address] [address] Slava Lees M.D. [address] [place] [phone] 12/18/2024 12:00 PM CDT Appointment Department of Laboratory Medicine in [address] [address] Slava Lees M.D. [address] [place] [phone] 12/25/2024 11:00 AM CDT Appointment Department of Laboratory Medicine in [address] [address] Slava Lees M.D. [address] [place] [phone] 12/25/2024 12:00 PM CDT Infusion Department of Infusion Therapy in [address] [address] Slava Lees M.D. [address] [place] [phone] 01/01/2025 11:10 AM CDT Appointment Department of Laboratory Medicine in [address] [address] Slava Lees M.D. [address] [place] [phone] 01/08/2025 1:30 PM CDT Appointment Department of Laboratory Medicine in [address] [address] Slava Lees M.D. [address] [place] [phone] 01/08/2025 2:30 PM CDT Infusion Department of Infusion Therapy in [address] [address] Slava Lees M.D. [address] [place] [phone] 01/15/2025 11:10 AM CDT Appointment Department of Laboratory Medicine in [address] [address] Slava Lees M.D. [address] [place] [phone] 01/22/2025 11:00 AM CDT Appointment Department of Laboratory Medicine in [address] [address] Slava Lees M.D. [address] [place] [phone] 01/22/2025 12:30 PM CDT Infusion Department of Infusion Therapy in [address] [address] Slava Lees M.D. [address] [place] [phone] 01/29/2025 11:10 AM CDT Appointment Department of Laboratory Medicine in [address] [address] Slava Lees M.D. [address] [place] [phone] 02/05/2025 1:30 PM CDT Appointment Department of Laboratory Medicine in [address] [address] Slava Lees M.D. [address] [place] [phone] 02/05/2025 2:30 PM CDT Infusion Department of Infusion Therapy in [address] [address] Slava Lees M.D. [address] [place] [phone] 02/12/2025 11:10 AM CDT Appointment Department of Laboratory Medicine in [address] [address] Slava Lees M.D. [address] [place] [phone] 02/26/2025 11:10 AM CDT Appointment Department of Laboratory Medicine in [address] [address] Slava Lees M.D. 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 Otherwise no PET evidence of hypermetabolic lymphoproliferative disorder. Narrative 10/31/2024 12:02 PM ELIGIBILITY SERVICES REPRESENTATIVE EXAM: PET CT SKULL TO THIGH FDG Serum glucose at time of F-18 FDG injection was 101 mg/dL. Patient followed standard dietary/fasting requirements for this exam. RADIOPHARMACEUTICAL/MEDS: Route: intravenous fludeoxyglucose F 18 injection JAIL (FDG F-18),4.06 millicurie TECHNIQUE: F18 FDG PET/CT [...] RADIOPHARMACEUTICAL/MEDS: Route: intravenous fludeoxyglucose F 18 injection JAIL (FDG F-18),4.06 millicurie TECHNIQUE: F18 FDG PET/CT [...] Otherwise no PET evidence of hypermetaboliclymphoproliferative disorder. Slava Lees M.D. 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
--- OUTSIDE RECORDS SUMMARY | 2024-12-05 20:54 | XMS_ITS | Encounter Summary ---
Author Organization [facility] Address [address] [place] [address] Care Team Providers Care Spinning Supervisor Name Role Phone Elsewhere, Pcp Primary Care Provider Unavailabl e Encounter Details Date Type Department Care Team (Latest Contact Info) Description 10/23/2024 11:25 AM ESCORT CAR DRIVER - 10/23/2024 11:59 PM ESCORT CAR DRIVER Hospital Encounter Department of Laboratory Medicine in [address] [phone] Slava Lees M.D. 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 Utilities Answer Date Recorded In the [...] your living situation today? I have a [facility] place to live 04/10/2024 Sex and Gender Information Value Date Recorded Sex Assigned at Male 03/26/2023 7:11 AM CDT Legal Sex Male 7:47 PM ESCORT CAR DRIVER Gender Identity Male 08/12/2018 1:39 PM ESCORT CAR DRIVER Sexual Orientation Straight 08/12/2018 1: 39 PM ESCORT CAR DRIVER documented as of this encounter Medications at [...] CDT Appointment Department of Laboratory Medicine in [address] [address] Slava Lees M.D. [address] [place] [phone] 12/11/2024 2:30 PM CDT Infusion Department of Infusion Therapy in [address] [address] Slava Lees M.D. [address] [place] [phone] 12/18/2024 12:00 PM CDT Appointment Department of Laboratory Medicine in [address] [address] Slava Lees M.D. [address] [place] [phone] 12/25/2024 11:00 AM CDT Appointment Department of Laboratory Medicine in [address] [address] Slava Lees M.D. [address] [place] [phone] 12/25/2024 12:00 PM CDT Infusion Department of Infusion Therapy in [address] [address] Slava Lees M.D. [address] [place] [phone] 01/01/2025 11:10 AM CDT Appointment Department of Laboratory Medicine in [address] [address] Slava Lees M.D. [address] [place] [phone] 01/08/2025 1:30 PM CDT Appointment Department of Laboratory Medicine in [address] [address] Slava Lees M.D. [address] [place] [phone] 01/08/2025 2:30 PM CDT Infusion Department of Infusion Therapy in [address] [address] Slava Lees M.D. [address] [place] [phone] 01/15/2025 11:10 AM CDT Appointment Department of Laboratory Medicine in [address] [address] Slava Lees M.D. [address] [place] [phone] 01/22/2025 11:00 AM CDT Appointment Department of Laboratory Medicine in [address] [address] Slava Lees M.D. [address] [place] [phone] 01/22/2025 12:30 PM CDT Infusion Department of Infusion Therapy in [address] [address] Slava Lees M.D. [address] [place] [phone] 01/29/2025 11:10 AM CDT Appointment Department of Laboratory Medicine in [address] [address] Slava Lees M.D. [address] [place] [phone] 02/05/2025 1:30 PM CDT Appointment Department of Laboratory Medicine in [address] [address] Slava Lees M.D. [address] [place] [phone] 02/05/2025 2:30 PM CDT Infusion Department of Infusion Therapy in [address] [address] Slava Lees M.D. [address] [place] [phone] 02/12/2025 11:10 AM CDT Appointment Department of Laboratory Medicine in [address] [place] [phone] Slava Lees M.D. [address] [place] [address] 02/26/2025 11:10 AM CDT Appointment Department of Laboratory Medicine in [address] [phone] Slava Lees M.D. 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) documented in this encounter Results * (ABNORMAL) CBC with Differential, Blood (10/23/2024 11:30 AM ESCORT CAR DRIVER) Pathologist [facility] Hemoglobin 7.2(L) 13.2 - 16.6 g/dL 10/23/2024 11:36 AM ESCORT CAR DRIVER [facility] Hematocrit 22.1(L) 38.3 - 48.6 % 10/23/2024 11:36 AM ESCORT CAR DRIVER [facility] Erythrocytes 2.03(L) 4.35 - 5.65 x10(12)/L 10/23/2024 11:36 AM ESCORT CAR DRIVER [facility] MCV 108.9(H) 78.2 - 97.9 fL 10/23/2024 11:36 AM ESCORT CAR DRIVER [facility] RBC Distrib Width 15.1(H) 11.8 - 14.5 % 10/23/2024 11:36 AM ESCORT CAR DRIVER [facility] Platelet Count 239 135 - 317 x10(9)/L 10/23/2024 11:36 AM ESCORT CAR DRIVER [facility] Leukocytes 5.5 3.4 - 9.6 x10(9)/L 10/23/2024 11:36 AM ESCORT CAR DRIVER [facility] Neutrophils 4.09 1.56 - 6.45 x10(9)/L 10/23/2024 11:36 AM ESCORT CAR DRIVER [facility] Lymphocytes 1.12 0.95 - 3.07 x10(9)/L 10/23/2024 11:36 AM ESCORT CAR DRIVER [facility] Monocytes 0.19(L) 0.26 - 0.81 x10(9)/L 10/23/2024 11:36 AM ESCORT CAR DRIVER [facility] Eosinophils 0.09 0.03 - 0.48 x10(9)/L 10/23/2024 11:36 AM ESCORT CAR DRIVER [facility] Basophils 0.05 0.01 - 0.08 x10(9)/L 10/23/2024 11:36 AM ESCORT CAR DRIVER [facility] Blood (Blood, Venous) 10/23/2024 11:30 AM ESCORT CAR DRIVER 10/23/2024 11:31 AM ESCORT CAR DRIVER us Slava Lees M.D. 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
--- OUTSIDE RECORDS SUMMARY | 2024-12-05 20:54 | XMS_ITS | Encounter Summary ---
Author Organization [facility] Address [address] [place] [address] Care Team Providers Care Egg Grader Name Role Phone Elsewhere, Pcp Primary Care Provider Unavailabl e Reason for Visit * Reason Comments Blood Product Administration Encounter Details Date Type Department Care Team ([facility] st Contact Info) Description 11/06/2024 6:45 PM CDT Infusion Department of Infusion Therapy in [place], [place] [address] [place] [address] Slava Lees M.D. [address] [place] [address] Myelofibrosis (HCC) (Primary Dx); Aplasia Red Cell (HCC); Anemia Of Chronic Renal Failure Discharge Disposition: Home or Self Care Social [...] drink = 0.6 oz pur e alcohol) [facility] Utilities Answer Date Recorded In the [...] your living situation today? I have a [facility] place to live 04/10/2024 Sex and Gender Information Value Date Recorded Sex Assigned at Male 03/26/2023 7:11 AM CDT Legal Sex Male 7:47 PM ENGRAVER LETTER Gender Identity Male 08/12/2018 1:39 PM ENGRAVER LETTER Sexual Orientation Straight 08/12/2018 1: 39 PM ENGRAVER LETTER documented as of this encounter Last Filed Vital Signs Vital Sign Reading Time Taken Comments Blood Pressure 148/80 11/06/2024 8:49 PM CDT Pulse 76 11/06/2024 8:49 PM CDT Temperature 36.6 C (97.9 F) 11/06/2024 8:49 PM CDT Respiratory Rate 16 11/06/2024 8:49 PM CDT Oxygen Saturation - - Inhaled Oxygen Concentration - - Weight - - Height - - Body Mass Index - - documented in this encounter Plan of Treatment Upcoming Encounters Date Type Department Care Team (Late st Contact Info) Description 12/11/2024 1:20 PM CDT Appointment Department of Laboratory Medicine in [address] [phone] Slava Lees M.D. [address] [place] [phone] 12/11/2024 2:30 PM CDT Infusion Department of Infusion Therapy in [address] [address] Slava Lees M.D. [address] [place] [phone] 12/18/2024 12:00 PM CDT Appointment Department of Laboratory Medicine in [address] [address] Slava Lees M.D. [address] [place] [phone] 12/25/2024 11:00 AM CDT Appointment Department of Laboratory Medicine in [address] [address] Slava Lees M.D. [address] [place] [phone] 12/25/2024 12:00 PM CDT Infusion Department of Infusion Therapy in [address] [address] Slava Lees M.D. [address] [place] [phone] 01/01/2025 11:10 AM CDT Appointment Department of Laboratory Medicine in [address] [address] Slava Lees M.D. [address] [place] [phone] 01/08/2025 1:30 PM CDT Appointment Department of Laboratory Medicine in [address] [address] Slava Lees M.D. [address] [place] [phone] 01/08/2025 2:30 PM CDT Infusion Department of Infusion Therapy in [address] [address] Slava Lees M.D. [address] [place] [phone] 01/15/2025 11:10 AM CDT Appointment Department of Laboratory Medicine in [address] [address] Slava Lees M.D. [address] [place] [phone] 01/22/2025 11:00 AM CDT Appointment Department of Laboratory Medicine in [place] [address] Slava Lees M.D. [address] [place] [phone] 01/22/2025 12:30 PM CDT Infusion Department of Infusion Therapy in [address] [phone] Slava Lees M.D. [address] [place] [phone] 01/29/2025 11:10 AM CDT Appointment Department of Laboratory Medicine in [address] [address] Slava Lees M.D. [address] [place] [phone] 02/05/2025 1:30 PM CDT Appointment Department of Laboratory Medicine in [address] [address] Slava Lees M.D. [address] [place] [phone] 02/05/2025 2:30 PM CDT Infusion Department of Infusion Therapy in [address] [address] Slava Lees M.D. [address] [place] [phone] 02/12/2025 11:10 AM CDT Appointment Department of Laboratory Medicine in [address] [address] Slava Lees M.D. [address] [place] [phone] 02/26/2025 11:10 AM CDT Appointment Department of Laboratory Medicine in [address] [phone] Slava Lees M.D. [address] [place] [address] Pending Results Name Type Priority Associated Diagnoses Date /Time Prepare Red Blood Cells, 1 Units Blood Bank Routine Myelofibrosis (HCC) 11/06/2024 4:53 PM CDT documented as of this encounter Procedures Procedure Name Priority Date/Time Associated Diagnosis Comments TRANSFUSE RED BLOOD CELLS Routine 11/06/2024 6:51 PM CDT Myelofibrosis (HCC) PREPARE RED BLOOD CELLS Routine 11/06/2024 4:53 P M CDT Myelofibrosis (HCC) documented in this encounter Results * Transfuse Red Blood Cells : (11/06/2024 8:50 PM CDT) Slava Lees M.D. BLOOD TRANSFUSION ORDERABLES Final Result * Transfuse Red Blood Cells : , 1 Units (11/06/2024 8:50 PM CDT) us Slava Lees M.D. BLOOD TRANSFUSION ORDERABLES Final Result documented in this encounter Visit Diagnoses Diagnosis Myelofibrosis (HCC)- Primary Aplasia Red Cell (HCC) Anemia Of Chronic Renal Failure documented in this encounter Administered Medications Inactive Administered Medications - up to 3 most recent administrations Medication Order MAR Action Action Date Dose Rate Site NaCl 0.9% infusion 20-500 mL/hr, intravenous, As needed, Between Unit of Blood Products, Starting on Maya 11/06/24 at 1812, Infuse at the same rate as the blood infusion until tubing cleared. Nurse may reduce rate to 20 mL/hour or as otherwise directed until next blood infusion arrives then discontinue when infusion complete.Indications:Aplasi a Red Cell (HCC),Anemia Of Chronic Renal Failure New Bag 11/06/2024 8:40 PM CDT 180 mL/hr 180 mL/hr sodium chloride 0.9 % injection 3 mL 3 mL, intravenous, As needed, line care, Starting on Maya 11/06/24 at 1812, Prior to and following infusion and between multiple consecutive infusions.Indications:Aplas ia Red Cell (HCC),Anemia Of Chronic Renal Failure Given 11/06/2024 6:29 PM CDT 3 mL documented in this encounter Care Teams Egg Grader Relationship Specialty Start Date End Date Elsewhere, Pcp PCP - General Internal Medicine 07/16/23 documented as of this encounter
--- OUTSIDE RECORDS SUMMARY | 2024-12-05 20:54 | XMS_ITS | Encounter Summary ---
Author Organization [facility] Address [address] [place] [address] Care Team Providers Care Centrifugal Extractor Operator Name Role Phone Elsewhere, Pcp Primary Care Provider Unavailabl e Reason for Visit * Reason Comments Injections * Episode Based Medications (Routine) - Authorized Specialty Diagnoses / Procedures Referred By Contiman t Referred To Contact Diagnoses Aplasia Red Cell (HCC) Slava Lees M.D. [address] [place] [phone] Phone: tel: fax: Slava Lees M.D. [address] [place] [phone] Phone: tel: fax: Referral ID Status Reason Start Date Expiration Date V isits Requested Visits Authorized [id number] Authorized 11/13/2024 11/13/2026 99 99 Encounter Details Date Type Department Care Team (Late st Contact Info) Description 11/13/2024 5:15 PM CDT Infusion Department of Infusion Therapy in [place], [place] [address] [place] [phone] Slava Lees M.D. [address] [place] [phone] Aplasia Red Cell (HCC) (Primary Dx) Discharge [...] drink = 0.6 oz pur e alcohol) [facility] Utilities Answer Date Recorded In the [...] your living situation today? I have a [facility] place to live 04/10/2024 Sex and Gender Information Value Date Recorded Sex Assigned at Male 03/26/2023 7:11 AM CDT Legal Sex Male 7:47 PM SHED HAND Gender Identity Male 08/12/2018 1:39 PM SHED HAND Sexual Orientation Straight 08/12/2018 1: 39 PM SHED HAND documented as of this encounter Last Filed Vital Signs Vital Sign Reading Time Taken Comments Blood Pressure 156/78 11/13/2024 5:10 PM CDT Pulse 76 11/13/2024 5:10 PM CDT Temperature 36.8 C (98.2 F) 11/13/2024 5:10 PM CDT Respiratory Rate 18 11/13/2024 5:10 PM CDT Oxygen Saturation - - Inhaled Oxygen Concentration - - Weight - - Height - - Body Mass Index - - documented in this encounter Plan of Treatment Upcoming Encounters Date Type Department Care Team (Late st Contact Info) Description 12/11/2024 1:20 PM CDT Appointment Department of Laboratory Medicine in [address] [phone] Slava Lees M.D. 200 [place] [address] 12/11/2024 2:30 PM CDT Infusion Department of Infusion Therapy in [address] [address] Slava Lees M.D. 200 [place] [address] 12/18/2024 12:00 PM CDT Appointment Department of Laboratory Medicine in [address] [address] Slava Lees M.D. [address] [place] [phone] 12/25/2024 11:00 AM CDT Appointment Department of Laboratory Medicine in [address] [address] Slava Lees M.D. [address] [place] [phone] 12/25/2024 12:00 PM CDT Infusion Department of Infusion Therapy in [address] [address] Slava Lees M.D. [address] [place] [phone] 01/01/2025 11:10 AM CDT Appointment Department of Laboratory Medicine in [address] [address] Slava Lees M.D. [address] [place] [phone] 01/08/2025 1:30 PM CDT Appointment Department of Laboratory Medicine in [address] [address] Slava Lees M.D. [address] [place] [phone] 01/08/2025 2:30 PM CDT Infusion Department of Infusion Therapy in [address] [address] Slava Lees M.D. [address] [place] [phone] 01/15/2025 11:10 AM CDT Appointment Department of Laboratory Medicine in [address] [address] Slava Lees M.D. [address] [place] [phone] 01/22/2025 11:00 AM CDT Appointment Department of Laboratory Medicine in [address] [address] Slaav Lees M.D. [address] [place] [phone] 01/22/2025 12:30 PM CDT Infusion Department of Infusion Therapy in [address] [address] Slava Lees M.D. [address] [place] [phone] 01/29/2025 11:10 AM CDT Appointment Department of Laboratory Medicine in [address] [address] Slava Lees M.D. [address] [place] [phone] 02/05/2025 1:30 PM CDT Appointment Department of Laboratory Medicine in [address] [address] Slava Lees M.D. [address] [place] [phone] 02/05/2025 2:30 PM CDT Infusion Department of Infusion Therapy in [address] [address] Slava Lees M.D. [address] [place] [phone] 02/12/2025 11:10 AM CDT Appointment Department of Laboratory Medicine in [address] [address] Slava Lees M.D. [address] [place] [phone] 02/26/2025 11:10 AM CDT Appointment Department of Laboratory Medicine in [address] [address] Slava Lees M.D. [address] [place] [phone] documented as of this encounter Visit Diagnoses Diagnosis Aplasia Red Cell (HCC)- Primary documented in this encounter Administered Medications Inactive Administered Medications - up to 3 most recent administrations Medication Order MAR Action Action Date Dose Rate Site darbepoetin eulalia-polysorbate injection 500 mcg (Aranesp) 500 mcg, subcutaneous, Once, On Maya 11/13/24 at 1730, For 1 dose, Indications: anemia, associated with MDSIndications:anemia,as sociated with MDS Given 11/13/2024 5:16 PM CDT 500 mcg Left Upper Arm (Back) documented in this encounter Care Teams Centrifugal Extractor Operator Relationship Specialty Start Date End Date Elsewhere, Pcp PCP - General Internal Medicine 07/16/23 documented as of this encounter
--- OUTSIDE RECORDS SUMMARY | 2024-12-05 20:54 | XMS_ITS | Encounter Summary ---
Author Organization [facility] Address 200 [place] [address] Care Team Providers Care Electro Mechanical Technologist Name Role Phone Elsewhere, Pcp Primary Care Provider Unavailabl e Reason for Visit * Episode Based Medications (Routine) - Authorized Specialty Diagnoses / Procedures Referred By Titus dallas Referred To Contact Diagnoses Aplasia Red Cell (HCC) Slava Lees M.D. 200 [place] [address] Phone: tel: fax: Slava Lees M.D. 200 [place] [address] Phone: tel: fax: Referral ID Status Reason Start Date Expiration Date V isits Requested Visits Authorized [id number] Authorized 11/13/2024 11/13/2026 99 99 Encounter Details Date Type Department Care Team (Latest Contact Info) Description 11/20/2024 11:06 AM CDT - 11/20/2024 11:59 PM CDT Hospital Encounter Department of Laboratory Medicine in [address] [address] Slava Lees M.D. [address] [place] [phone] Chronic Acquired Pure Red Cell Aplasia [...] 0.6 oz pur e alcohol) [facility] Utilities Answer Date Recorded In the [...] living situation today? I have a [facility] place to live 04/10/2024 Sex and Gender Information Value Date Recorded Sex Assigned at Male 03/26/2023 7:11 AM CDT Legal Sex Male 7:47 PM COMPLIANCE MGR Gender Identity Male 08/12/2018 1:39 PM COMPLIANCE MGR Sexual Orientation Straight 08/12/2018 1: 39 PM COMPLIANCE MGR documented as of this encounter Medications at [...] CDT Appointment Department of Laboratory Medicine in [address] [phone] Slava Lees M.D. 200 [place] [address] 12/11/2024 2:30 PM CDT Infusion Department of Infusion Therapy in [address] [phone] Slava Lees M.D. [address] [place] [phone] 12/18/2024 12:00 PM CDT Appointment Department of Laboratory Medicine in [address] [address] Slava Lees M.D. [address] [place] [phone] 12/25/2024 11:00 AM CDT Appointment Department of Laboratory Medicine in [address] [address] Slava Lees M.D. [address] [place] [phone] 12/25/2024 12:00 PM CDT Infusion Department of Infusion Therapy in [address] [address] Slava Lees M.D. [address] [place] [phone] 01/01/2025 11:10 AM CDT Appointment Department of Laboratory Medicine in [address] [address] Slava Lees M.D. [address] [place] [phone] 01/08/2025 1:30 PM CDT Appointment Department of Laboratory Medicine in [address] [address] Slava Lees M.D. [address] [place] [phone] 01/08/2025 2:30 PM CDT Infusion Department of Infusion Therapy in [address] [address] Slava Lees M.D. [address] [place] [phone] 01/15/2025 11:10 AM CDT Appointment Department of Laboratory Medicine in [address] [address] Slava Lees M.D. [address] [place] [phone] 01/22/2025 11:00 AM CDT Appointment Department of Laboratory Medicine in [address] [address] Slava Lees M.D. [address] [place] [phone] 01/22/2025 12:30 PM CDT Infusion Department of Infusion Therapy in [address] [address] Slava Lees M.D. [address] [place] [phone] 01/29/2025 11:10 AM CDT Appointment Department of Laboratory Medicine in [address] [address] Slava Lees M.D. [address] [place] [phone] 02/05/2025 1:30 PM CDT Appointment Department of Laboratory Medicine in [address] [address] Slava Lees M.D. [address] [place] [phone] 02/05/2025 2:30 PM CDT Infusion Department of Infusion Therapy in [address] [address] Slava Lees M.D. [address] [place] [phone] 02/12/2025 11:10 AM CDT Appointment Department of Laboratory Medicine in [address] [address] Slava Lees M.D. [address] [place] [phone] 02/26/2025 11:10 AM CDT Appointment Department of Laboratory Medicine in [address] [address] Slava Lees M.D. 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 LAB BLOOD ADD-ON Final Resul t Performing Organization Address [facility] Co de Phone Number [facility] [address] [place] [phone], [facility] in [address] [phone] * (ABNORMAL) Ferritin (11/20/2024 11:18 AM CDT) Ferritin, S 2788(H) 31 - 409 mcg/L 11/20/2024 8:45 PM CDT [facility] Comment: Biotin has been identified by the dry clipper tender as a potential interfering substance. Higher concentrations of biotin may be found in multivitamins, hair/nail supplements, and workout supplements. If the result does not match clinical observations, repeat testing after patient refrains from the use of supplements for at least 12 hours. Blood (Blood, Venous) 11/20/2024 11:18 AM CDT 11/20/2024 12:48 PM CDT us Slava Lees M.D. LAB BLOOD ADD-ON Final Resul t Performing Organization Address City/[facility]/ZIP Co de Phone Number [facility] [address] [place] [id number], [place] [facility] in [place] [address] [place] [phone] * (ABNORMAL) CBC with Differential, Blood (11/20/2024 11:18 AM CDT) [facility] Hemoglobin 7.7(L) 13.2 - 16.6 g/dL 11/20/2024 11:23 AM CDT [facility] Hematocrit 23.4(L) 38.3 - 48.6 % 11/20/2024 11:23 AM CDT [facility] Erythrocytes 2.20(L) 4.35 - 5.65 x10(12)/L 11/20/2024 11:23 AM CDT [facility] MCV 106.4(H) 78.2 - 97.9 fL 11/20/2024 11:23 AM CDT [facility] RBC Distrib Width 18.2(H) 11.8 - 14.5 % 11/20/2024 11:23 AM CDT [facility] Platelet Count 209 135 - 317 x10(9)/L 11/20/2024 11:23 AM CDT [facility] Leukocytes 3.5 3.4 - 9.6 x10(9)/L 11/20/2024 11:23 AM CDT [facility] Neutrophils 2.47 1.56 - 6.45 x10(9)/L 11/20/2024 11:23 AM CDT [facility] Lymphocytes 0.59(L) 0.95 - 3.07 x10(9)/L 11/20/2024 11:23 AM CDT [facility] Monocytes 0.41 0.26 - 0.81 x10(9)/L 11/20/2024 11:23 AM CDT [facility] Eosinophils <0.04 0.03 - 0.48 x10(9)/L 11/20/2024 11:23 AM CDT [facility] Basophils <0.04 0.01 - 0.08 x10(9)/L 11/20/2024 11:23 AM CDT [facility] Blood (Blood, Venous) 11/20/2024 11:18 AM CDT 11/20/2024 11:19 AM CDT us Slava Lees M.D. 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
--- OUTSIDE RECORDS SUMMARY | 2024-12-05 20:55 | XMS_ITS | Encounter Summary ---
Author Organization [facility] Address [address] [place] [address] Care Team Providers Care Assistant Plant Controller Name Role Phone Elsewhere, Pcp Primary Care Provider Unavailabl e Reason for Visit * Reason Onset Date Comments Nurse Assessment 09/30/2024 Encounter Details Date Type Department Care Team (Latest Contact Info) Description 09/30/2024 Clinical Communication Division of Hematology in [place], [place] [address] [place] [address] Slava Lees M.D. [address] [place] [address] Nurse Assessment Social History Tobacco Use Types Packs/Day Years Used Date Smoking Tobacco: Former Cigarettes 1 4.4 0 11/25/1969 - 04/02/1974 Passive Smoke Exposure: Past Smokeless Tobacco: Never Comments: service ti me only Passive Exposure Comments:Dad When I was growing up & in the Service Alcohol Use Standard Drinks/Week Comments Yes 5 (1 standard drink = 0.6 oz pur e alcohol) [facility] Utilities Answer Date Recorded In the past [...] your living situation today? I have a [facility] place to live 04/10/2024 Sex and Gender Information Value Date Recorded Sex Assigned at Male 03/26/2023 7:11 AM CDT Legal Sex Male 7:47 PM DEVULCANIZER TENDER Gender Identity Male 08/12/2018 1:39 PM DEVULCANIZER TENDER Sexual Orientation Straight 08/12/2018 1: 39 PM DEVULCANIZER TENDER documented as of this encounter Plan of Treatment Upcoming Encounters Date Type Department Care Team (Late st Contact Info) Description 12/11/2024 1:20 PM CDT Appointment Department of Laboratory Medicine in [address] [address] Slava Lees M.D. [address] [place] [phone] 12/11/2024 2:30 PM CDT Infusion Department of Infusion Therapy in [address] [address] Slava Lees M.D. [address] [place] [phone] 12/18/2024 12:00 PM CDT Appointment Department of Laboratory Medicine in [address] [address] Slava Lees M.D. [address] [place] [phone] 12/25/2024 11:00 AM CDT Appointment Department of Laboratory Medicine in [address] [address] Slava Lees M.D. [address] [place] [phone] 12/25/2024 12:00 PM CDT Infusion Department of Infusion Therapy in [address] [address] Slava Lees M.D. [address] [place] [phone] 01/01/2025 11:10 AM CDT Appointment Department of Laboratory Medicine in [address] [address] Slava Lees M.D. [address] [place] [phone] 01/08/2025 1:30 PM CDT Appointment Department of Laboratory Medicine in [address] [address] Slava Lees M.D. [address] [place] [phone] 01/08/2025 2:30 PM CDT Infusion Department of Infusion Therapy in [address] [address] Slava Lees M.D. [address] [place] [phone] 01/15/2025 11:10 AM CDT Appointment Department of Laboratory Medicine in [address] [phone] Slava Lees M.D. [address] [place] [phone] 01/22/2025 11:00 AM CDT Appointment Department of Laboratory Medicine in [address] [address] Slava Lees M.D. [address] [place] [phone] 01/22/2025 12:30 PM CDT Infusion Department of Infusion Therapy in [address] [address] Slava Lees M.D. [address] [place] [phone] 01/29/2025 11:10 AM CDT Appointment Department of Laboratory Medicine in [address] [phone] Slava Lees M.D. [address] [place] [phone] 02/05/2025 1:30 PM CDT Appointment Department of Laboratory Medicine in [address] [address] Slava Lees M.D. [address] [place] [phone] 02/05/2025 2:30 PM CDT Infusion Department of Infusion Therapy in [address] [address] Slava Lees M.D. [address] [place] [phone] 02/12/2025 11:10 AM CDT Appointment Department of Laboratory Medicine in [address] [address] Slava Lees M.D. [address] [place] [phone] 02/26/2025 11:10 AM CDT Appointment Department of Laboratory Medicine in [address] [phone] Slava Lees M.D. [address] [place] [phone] documented as of this encounter Visit Diagnoses Not on filedocumented in this encounter Care Teams Assistant Plant Controller Relationship Specialty Start Date End Date Elsewhere, Pcp PCP - General Internal Medicine 07/16/23 documented as of this encounter
--- OUTSIDE RECORDS SUMMARY | 2024-12-05 20:55 | XMS_ITS | Encounter Summary ---
Author Organization [facility] Address [address] [place] [address] Care Team Providers Care Vp Business Development Name Role Phone Elsewhere, Pcp Primary Care Provider Unavailabl e Encounter Details Date Type Department Care Team (Late st Contact Info) Description 10/02/2024 Clinical Communication Division of Hematology in [place], [place] [address] [place] [address] Slava Lees M.D. [address] [place] [address] Social History Tobacco Use Types Packs/Day Years Used Date Smoking Tobacco: Former Cigarettes 1 4.4 0 11/25/1969 - 04/02/1974 Passive Smoke Exposure: Past Smokeless Tobacco: Never Comments: service ti me only Passive Exposure Comments:Dad When I was growing up & in the Service Alcohol Use Standard Drinks/Week Comments Yes 5 (1 standard drink = 0.6 oz pur e alcohol) [facility] Utilities Answer Date Recorded In the past 12 months has e [employer], gas, oil, or water [employer] threatened to shut off services in your [...] your living situation today? I have a [facility] place to live 04/10/2024 Sex and Gender Information Value Date Recorded Sex Assigned at Male 03/26/2023 7:11 AM CDT Legal Sex Male 7:47 PM HAND CANDY MOLDER Gender Identity Male 08/12/2018 1:39 PM HAND CANDY MOLDER Sexual Orientation Straight 08/12/2018 1: 39 PM HAND CANDY MOLDER documented as of this encounter Plan of Treatment Upcoming Encounters Date Type Department Care Team (Late st Contact Info) Description 12/11/2024 1:20 PM CDT Appointment Department of Laboratory Medicine in [address] [address] Slava Lees M.D. [address] [place] [phone] 12/11/2024 2:30 PM CDT Infusion Department of Infusion Therapy in [address] [address] Slava Lees M.D. [address] [place] [phone] 12/18/2024 12:00 PM CDT Appointment Department of Laboratory Medicine in [address] [address] Slava Lees M.D. [address] [place] [phone] 12/25/2024 11:00 AM CDT Appointment Department of Laboratory Medicine in [address] [address] Slava Lees M.D. [address] [place] [phone] 12/25/2024 12:00 PM CDT Infusion Department of Infusion Therapy in [address] [address] Slava Lees M.D. [address] [place] [phone] 01/01/2025 11:10 AM CDT Appointment Department of Laboratory Medicine in [address] [address] Slava Lees M.D. [address] [place] [phone] 01/08/2025 1:30 PM CDT Appointment Department of Laboratory Medicine in [address] [address] lSava Lees M.D. [address] [place] [phone] 01/08/2025 2:30 PM CDT Infusion Department of Infusion Therapy in [address] [address] Slava Lees M.D. [address] [place] [phone] 01/15/2025 11:10 AM CDT Appointment Department of Laboratory Medicine in [address] [address] Slava Lees M.D. [address] [place] [phone] 01/22/2025 11:00 AM CDT Appointment Department of Laboratory Medicine in [address] [address] Slava Lees M.D. [address] [place] [phone] 01/22/2025 12:30 PM CDT Infusion Department of Infusion Therapy in [address] [address] Slava Lees M.D. [address] [place] [phone] 01/29/2025 11:10 AM CDT Appointment Department of Laboratory Medicine in [address] [phone] Slava Lees M.D. [address] [place] [phone] 02/05/2025 1:30 PM CDT Appointment Department of Laboratory Medicine in [address] [phone] Slava Lees M.D. [address] [place] [phone] 02/05/2025 2:30 PM CDT Infusion Department of Infusion Therapy in [address] [address] Slava Lees M.D. [address] [place] [phone] 02/12/2025 11:10 AM CDT Appointment Department of Laboratory Medicine in [address] [address] Slava Lees M.D. [address] [place] [phone] 02/26/2025 11:10 AM CDT Appointment Department of Laboratory Medicine in [address] [phone] Slava Lees M.D. [address] [place] [phone] documented as of this encounter Visit Diagnoses Not on filedocumented in this encounter Care Teams Vp Business Development Relationship Specialty Start Date End Date Elsewhere, Pcp PCP - General Internal Medicine 07/16/23 documented as of this encounter
--- OUTSIDE RECORDS SUMMARY | 2024-12-05 20:55 | XMS_ITS | Encounter Summary ---
Author Organization [facility] Address [address] [place] [id number] Care Team Providers Care Service Counter Cashier Name Role Phone Elsewhere, Pcp Primary Care Provider Unavailabl e Reason for Referral * Specialty Diagnoses / Procedures Referred By Contiman t Referred To Contact Diagnoses Myelofibrosis (HCC) Slava Lees M.D. [address] [place] [address] Phone: tel: fax: [facility] Referral ID Status Reason Start Date Expiration Date Visits Re quested Visits Authorized NEER CONDUCTOR Reason for Visit * Reason Onset Date Comments Follow-up Orders 10/01/2024 Blood transfusi on Encounter Details Date Type Department Care Team (Latest Contact Info) Description 10/01/2024 Clinical Communication Division of Hematology in [place], [place] [address] [place] [address] Slava Lees M.D. [address] [place] [phone] Follow-up Orders (Blood transfusion) Social History Tobacco Use Types Packs/Day Years Used Date Smoking Tobacco: Former Cigarettes 1 4.4 0 11/25/1969 - 04/02/1974 Passive Smoke Exposure: Past Smokeless Tobacco: Never Comments: service ti me only Passive Exposure Comments:Dad When I was growing up & in the Service Alcohol Use Standard Drinks/Week Comments Yes 5 (1 standard drink = 0.6 oz pur e alcohol) [facility] Utilities Answer Date Recorded In [...] your living situation today? I have a [place] place to live 04/10/2024 Sex and Gender Information Value Date Recorded Sex Assigned at Male 03/26/2023 7:11 AM CDT Legal Sex Male 7:47 PM ENGINEER CONDUCTOR Gender Identity Male 08/12/2018 1:39 PM ENGINEER CONDUCTOR Sexual Orientation Straight 08/12/2018 1: 39 PM ENGINEER CONDUCTOR documented as of this encounter Plan of Treatment Upcoming Encounters Date Type Department Care Team (Late st Contact Info) Description 12/11/2024 1:20 PM CDT Appointment Department of Laboratory Medicine in [address] [phone] Slava Lees M.D. [address] [place] [phone] 12/11/2024 2:30 PM CDT Infusion Department of Infusion Therapy in [address] [phone] Slava Lees M.D. [address] [place] [phone] 12/18/2024 12:00 PM CDT Appointment Department of Laboratory Medicine in [address] [phone] Slava Lees M.D. [address] [place] [phone] 12/25/2024 11:00 AM CDT Appointment Department of Laboratory Medicine in [address] [phone] Slava Lees M.D. [address] [place] [phone] 12/25/2024 12:00 PM CDT Infusion Department of Infusion Therapy in [address] [address] Slava Lees M.D. [address] [place] [phone] 01/01/2025 11:10 AM CDT Appointment Department of Laboratory Medicine in [address] [address] Slava Lees M.D. [address] [place] [phone] 01/08/2025 1:30 PM CDT Appointment Department of Laboratory Medicine in [address] [address] Slava Lees M.D. [address] [place] [phone] 01/08/2025 2:30 PM CDT Infusion Department of Infusion Therapy in [address] [address] Slava Lees M.D. [address] [place] [phone] 01/15/2025 11:10 AM CDT Appointment Department of Laboratory Medicine in [address] [address] Slava Lees M.D. [address] [place] [phone] 01/22/2025 11:00 AM CDT Appointment Department of Laboratory Medicine in [address] [place] [address] Slava Lees M.D. [address] [place] [phone] 01/22/2025 12:30 PM CDT Infusion Department of Infusion Therapy in [address] [address] Slava Lees M.D. [address] [place] [phone] 01/29/2025 11:10 AM CDT Appointment Department of Laboratory Medicine in [address] [address] Slava Lees M.D. [address] [place] [phone] 02/05/2025 1:30 PM CDT Appointment Department of Laboratory Medicine in [address] [phone] Slava Lees M.D. [address] [place] [phone] 02/05/2025 2:30 PM CDT Infusion Department of Infusion Therapy in [address] [address] Slava Lees M.D. [address] [place] [phone] 02/12/2025 11:10 AM CDT Appointment Department of Laboratory Medicine in [address] [address] Slava Lees M.D. [address] [place] [phone] 02/26/2025 11:10 AM CDT Appointment Department of Laboratory Medicine in [address] [phone] Slava Lees M.D. [address] [place] [address] Scheduled Referrals Name Type Priority Associated Diagnoses Order Schedule Blood Administration in Infusion Therapy; Outpatient Referral Routine Myelofibrosis (HCC) Expected: 10/02/2024, Expires: 12/30/2025 documented as of this encounter Results * Type and Screen (with Reflex Antibody ID) (10/02/2024 11:43 AM ENGINEER CONDUCTOR) ABO Group O 10/02/2024 1:54 PM ENGINEER CONDUCTOR [facility] Rh Type POS 10/02/2024 1:54 PM ENGINEER CONDUCTOR [facility] Antibody Screen NEG 1:54 PM ENGINEER CONDUCTOR [facility] Type & Screen Expiration 10/05/2024 23:59 10/02/2024 1:54 PM ENGINEER CONDUCTOR [facility] ELXM Eligible N 10/02/2024 1:54 PM ENGINEER CONDUCTOR [facility] Blood (Blood, Venous) 10/02/2024 11:43 AM ENGINEER CONDUCTOR 10/02/2024 11:45 AM ENGINEER CONDUCTOR Lilia Mccormick M.D. LAB BLOOD BANK TEST ORDERABL ES Final Result [facility] [address] [address], [facility] [place] [address] [phone] documented in this encounter Visit Diagnoses Diagnosis Myelofibrosis (HCC)- Primary documented in this encounter Care Teams Service Counter Cashier Relationship Specialty Start Date End Date Elsewhere, Pcp PCP - General Internal Medicine 07/16/23 documented as of this encounter
== END 2024-12-05 21:17 | disposition home or self-care (01) ==
PROVIDERS: Emergency Provider Family Medicine; PCP Family Medicine
DX: M79.662 Pain in left lower leg (principal)
CPT/HCPCS: 93971; 99283; 99284